=== PATIENT | male | born 1950 | race Caucasian/White ===

== ENCOUNTER 2017-06-09 19:36 | Inpatient (IN) | payer MEDICARE ==
[~2017-06-09] VITALS: Ht 175.3 cm; Wt 79.4 kg
[~2017-06-09 19:36] MED LIST: ALLO100T PO; ALPR0.254 PO; ASPI81TA3 PO; ATEN-51 PO; ATOR40TA21 PO; CARI350T29 PO; CLOP75TA19 PO; DIPH1TAB25 PO; GABA300C16 PO; HYDR-3498 PO; LEVO125T75 PO; PANT40TA4 PO; TADA20TA PO; TRAZ150T65 PO; [UNRECOGNIZED DRUG - CODE] PO; [UNRECOGNIZED DRUG - OTHER] OP
[2017-06-09 22:47] VITALS: Ht 175.3 cm; Wt 79.4 kg
[2017-06-09] MEDS ORDERED: BACLOFEN 10 MG TAB PO PRN (23:00)
[2017-06-09] MEDS ORDERED: HYDROCODONE/APAP (10/325) TAB PO PRN (23:00)
[2017-06-09] MEDS ORDERED: ACETAMINOPHEN 500 MG TAB PO PRN (23:00)
[2017-06-09] MEDS ORDERED: traZODone 50 MG TAB PO SCH (23:25)
[2017-06-09] MEDS: ATORVASTATIN 80 MG TAB PO SCH (23:43)
[2017-06-10] MEDS ORDERED: LACTULOSE 30ML CUP PO PRN (01:00)
[2017-06-10] MEDS ORDERED: MAGNESIUM HYDROXIDE 30ML CUP PO PRN (01:00)
[2017-06-10 01:29] LABS: ADD UMIC NO; UR ASCORBIC ACID NEGATIVE (NEGATIVE); UR BILIRUBIN (Dip) NEGATIVE (NEGATIVE); UR BLOOD (Dip) NEGATIVE (NEGATIVE); UR CLARITY CLEAR (CLEAR); UR COLOR YELLOW (YELLOW); UR GLUCOSE (Dip) NEGATIVE (NEGATIVE); UR KETONES (Dip) NEGATIVE (NEGATIVE); UR LEUKOCYTE ESTERASE (Dip) NEGATIVE Leu/ul (NEGATIVE); UR NITRITE (Dip) NEGATIVE (NEGATIVE); UR SPECIFIC GRAVITY (Dip) 1.012 (1.003-1.030); UR TOTAL PROTEIN (Dip) NEGATIVE (NEGATIVE); UR UROBILINOGEN (Dip) NEGATIVE (NEGATIVE)
[2017-06-10 02:00] VITALS: BP 114/69; RESP 18
[2017-06-10] MEDS: OXYCODONE/ACETAMINOPHEN (10/325) TAB PO PRN ×6 (06:19→23:32)
[2017-06-10] MEDS: PANTOPRAZOLE (EC) 40 MG TAB PO SCH (06:20)
[2017-06-10 07:45] LABS: BASOPHILS % 0.2 % (0.0-2.0); EOSINOPHILS # 0.3 10^3/ul (0.0-0.5); EOSINOPHILS % 3.5 % (0.0-7.0); HEMATOCRIT 35.4 % (42.0-52.0); HEMOGLOBIN 11.6 g/dl (14.0-18.0); LYMPHOCYTES # 1.6 10^3/ul (0.8-2.9); LYMPHOCYTES % 18.2 % (15.0-51.0); MEAN CORPUSCULAR HEMOGLOBIN 29.2 pg (29.0-33.0); MEAN CORPUSCULAR HGB CONC 32.8 g/dl (32.0-37.0); MEAN CORPUSCULAR VOLUME 89.2 fl (82.0-101.0); MEAN PLATELET VOLUME 11.4 fl (7.4-10.4); MONOCYTE # 0.9 10^3/ul (0.3-0.9); NEUTROPHIL # 5.8 10^3/ul (1.6-7.5); NEUTROPHILS % 67.6 % (39.0-77.0); PLATELET COUNT 280 10^3/UL (140-415); RED BLOOD COUNT 3.97 10^6/ul (4.70-6.10); RED CELL DISTRIBUTION WIDTH 13.5 % (11.5-14.5); WHITE BLOOD COUNT 8.5 10^3/ul (4.8-10.8)
[2017-06-10 08:01] VITALS: BP 140/65; RESP 18
[2017-06-10 08:03] LABS: ALBUMIN 3.2 g/dl (3.3-4.9); ALBUMIN/GLOBULIN RATIO 0.96; BILIRUBIN,INDIRECT 0.3 mg/dl (0-1.1); BILIRUBIN,TOTAL 0.3 mg/dl (0.2-1.3); CALCIUM 8.8 mg/dl (8.4-10.2); CREATININE 1.15 mg/dl (0.61-1.24); TOTAL PROTEIN 6.5 g/dl (6.1-8.1)
[2017-06-10] MEDS ORDERED: HYDROCORTISONE 1% 28 GM CR TOP SCH (09:00)
[2017-06-10] MEDS ORDERED: CLOTRIMAZOLE 1% 30 GM CR TOP SCH (09:00)
[2017-06-10] MEDS: POLYETHYLENE GLYCOL 17 GM PACKET PO SCH ×3 (09:00→21:59)
[2017-06-10] MEDS: PREGABALIN 25 MG CAP PO SCH ×2 (09:01→21:59)
[2017-06-10] MEDS: ACYCLOVIR 400 MG TAB PO SCH ×3 (09:02→21:59)
[2017-06-10] MEDS: FLUOXETINE 20 MG CAP PO SCH (09:02)
[2017-06-10] MEDS: DOCUSATE SODIUM 100 MG CAP PO SCH ×2 (09:02→21:58)
[2017-06-10] MEDS: VALSARTAN 80 MG TAB PO SCH (09:03)
[2017-06-10] MEDS: LEVOTHYROXINE 125 MCG TAB PO SCH (09:03)
--- NOTE | 2017-06-10 10:02 | CONS ---
Date/Time of Note Date/Time of Note DATE: 06/10/17 TIME: 09:57 Assessment/Plan Assessment/Plan Additional Assessment/Plan REHABILITATION POST-ADMISSION PHYSICIAN EVALUATION: REHABILITATION IMPAIRMENT CATEGORY: other orthopedic disorder with complicated history with multiple back surgeries and postoperative fungal infection who now more recently was noted to have a fracture at his upper instrumentation patient level requiring hardware removal and posterior fusion ACTIVE COMORBIDITIES: 1.Acute pain Syndrome 2.Hypertension 3.Anemia 4. Hypercholesterolemia 5. Hypothyroidism 6. Gout 7. history of multiple back surgeries 8.Impairments in self-care and mobility PLAN: The patient has been admitted for comprehensive interdisciplinary acute rehab and is anticipated to tolerate 3 hours of daily therapy in divided doses for at least 5/7 days a week. The treatment plan will include: 1. Physical therapy to focus on bed mobility, transfers, and household ambulation with the goal of having the patient reach a standby assist level. 2. Occupational therapy to focus on hygiene, grooming, dressing, bathing, and toileting activities with the goal of having the patient reach a standby assist level. 3. Rehabilitation nursing for carryover of therapeutic interventions, the goal of continent of bowel and bladder, pain under adequate control, and patient and family education with regards to the aforementioned issues ESTIMATED LENGTH OF STAY: 14 days. DISPOSITION GOAL: Home. Rehabilitation Barrier: pain Intervention for barrier: interdisciplinary rehabilitation I acknowledge that I performed a full physical examination on this patient within 24 hours of admission to the rehabilitation unit and believe the patient is a good candidate for comprehensive interdisciplinary rehab care and is anticipated to make reasonable goals in a reasonable period of time as outlined above. Consultation Date/Type/Reason Admit Date/Time Jun 09, 2017 at 21:09 Hx of Present Illness Patient is a very pleasant 66-year-old gentleman with a history of hypertension and complicated back history which includes multiple back surgeries who unfortunately had a fungal infection in the back which was managed with antifungal. Patient had a postoperative CAT scan which revealed a fracture at his upper instrumental level. Patient underwent a hardware removal followed by posterior fusion. His hospital course has been notable for significant pain in addition to impairments in self-care and mobility as compared to baseline. Patient has been cleared to transfer to the rehabilitation unit for comprehensive interdisciplinary rehab care Past Medical History 1.Hypertension 2.history of multiple back surgeries, postop fungal infection 3.Anemia 4. Hypercholesterolemia 5. Hypothyroidism 6. Gout FUNCTIONAL HISTORY: Prior to recent events, the patient was independent in self-care tasks and mobility. Currently, patient requires moderate assist for self-care and mobility tasks. I have reviewed the preadmission screen and the patient's current functional status is consistent with the preadmission screen. SOCIAL HISTORY: The patient lives at home and hopes to return there upon discharge. Social History Smoking Status: Never smoker Exam/Review of Systems Vital Signs Vitals Vital Signs Date Time Temp Pulse Resp B/P Pulse Ox O2 Delivery O2 Flow Rate FiO2 06/10/17 08:01 98.4 58 18 140/65 97 Intake and Output 06/09/17 06/09/17 06/10/17 14:59 22:59 06:59 Intake Total 550 ml Balance 550 ml Exam He is awake and alert and oriented 3 he can follow simple one-step commands he demonstrates antigravity strength in bilateral upper extremity and lower extremity he has impaired dynamic balance Constitutional: No alert, No distress, No frail, No non-verbal, No obese, No oriented, No other, No well developed Psych: No anxiety, No confusion, No depression, No nl mood/affect, No no complaints, No other, No suicidal Head: No atraumatic, No hematomas, No lacerations, No normocephalic, No other Eyes: No EOMI, No PERRL, No fundi, disc, No icteric, No nl conjunctiva, No nl lids, No nl sclera, No other ENMT: No intubated, No mucosa pink and moist, No nl external ears & nose, No nl lips & teeth, No nl nasal mucosa & septum, No other, No tympanic membranes Respiratory: No clear to auscultation, No congested cough, No crackles/rales, No diminished breath sounds, No intercostal retraction, No labored breathing, No normal air movement, No other, No respirations, No tactile fremitus, No wheezing Cardiovascular: No S3, No S4, No bruits, No diastolic murmur, No edema, No gallop, No irregular rhythm, No jugular venous distention (JVD), No murmurs/ extra sounds, No nl pulses, No other, No regular rate and rhythm, No rub, No systolic murmur Gastrointestinal: No ascites, No bowel sounds, No distended, No firm, No hepatomegaly, No mass, No nl liver, spleen, No non-tender, No other, No rebound or guarding, No soft, No splenomegaly, No surgical scars, No tender Genitourinary - Male: No CVA tenderness, No discharge, No nl penis, No nl scrotum, No other Results Result Diagram: 06/10/17 0640 06/10/17 0640 Results 24 hrs Laboratory Tests Test 06/09/17 23:00 06/10/17 06:40 Urine Color YELLOW Urine Clarity CLEAR Urine pH 6.0 Urine Specific [place] 1.012 Urine Ketones NEGATIVE Urine Nitrite NEGATIVE Urine Bilirubin NEGATIVE Urine Urobilinogen NEGATIVE Urine Leukocyte Esterase NEGATIVE Urine Hemoglobin NEGATIVE Urine Glucose NEGATIVE Urine Total Protein NEGATIVE White Blood Count 8.5 Red Blood Count 3.97 L Hemoglobin 11.6 L Hematocrit 35.4 L Mean Corpuscular Volume 89.2 Mean Corpuscular Hemoglobin 29.2 Mean Corpuscular Hemoglobin Concent 32.8 Red Cell Distribution Width 13.5 Platelet Count 280 Mean Platelet Volume 11.4 H Neutrophils % 67.6 Lymphocytes % 18.2 Monocytes % 10.0 Eosinophils % 3.5 Basophils % 0.2 Nucleated Red Blood Cells % 0.0 Neutrophils # 5.8 Lymphocytes # 1.6 Monocytes # 0.9 Eosinophils # 0.3 Basophils # 0.0 Nucleated Red Blood Cells # 0.0 Sodium Level 141 Potassium Level 4.0 Chloride Level 97 Carbon Dioxide Level 31 Anion Gap 17 H Blood Urea Nitrogen 14 Creatinine 1.15 Glucose Level 92 Calcium Level 8.8 Total Bilirubin 0.3 Direct Bilirubin 0.00 Indirect Bilirubin 0.3 Aspartate Amino Transf (AST/SGOT) 21 Alanine Aminotransferase (ALT/SGPT) 30 Alkaline Phosphatase 111 Total Protein 6.5 Albumin 3.2 L Globulin 3.30 H Albumin/Globulin Ratio 0.96 Medications Medications Current Medications Allopurinol (Zyloprim) 100 mg QPM PO ; Start 06/10/17 at 21:00 Atenolol (Tenormin) 25 mg QPM PO ; Start 06/10/17 at 21:00 Clopidogrel Bisulfate (plaVIX) 75 mg QPM PO ; Start 06/10/17 at 21:00 Valsartan (Diovan) 40 mg DAILY PO Last administered on 06/10/17 09:03; Admin Dose 40 MG; Start 06/10/17 at 09:00 Pregabalin (Lyrica) 100 mg BID PO Last administered on 06/10/17 09:01; Admin Dose 100 MG; Start 06/10/17 at 09:00 Acetaminophen (Tylenol Tab) 1,000 mg TID PRN PO PAIN; Start 06/09/17 at 23:00 Baclofen (Lioresal) 10 mg TID PRN PO SPASMS; Start 06/09/17 at 23:00 Atorvastatin Calcium (Lipitor) 80 mg DAILY@21 PO Last administered on 23:43; Admin Dose 80 MG; Start 06/09/17 at 23:25 Fluoxetine HCl (Prozac) 60 mg DAILY PO Last administered on 06/10/17 09:02; Admin Dose 60 MG; Start 06/10/17 at 09:00 Docusate Sodium (Colace) 100 mg BID PO Last administered on 06/10/17 09:02; Admin Dose 100 MG; Start 06/10/17 at 09:00 Senna (Senokot) 1 tab HS PO ; Start 06/10/17 at 21:00 Magnesium Hydroxide (Milk Of Mag) 30 ml BID PRN PO CONSTIPATION; Start at 01:00 Lactulose (Enulose) 20 gm DAILY PRN PO CONSTIPATION; Start 06/10/17 at 01:00 Polyethylene Glycol (Miralax) 17 gm BID PO ; Start 06/10/17 at 09:00 Tamsulosin HCl (Flomax) 0.4 mg DAILY@21 PO ; Start 06/10/17 at 21:00 Acyclovir (Zovirax) 400 mg TID PO Last administered on 06/10/17 09:02; Admin Dose 400 MG; Start 06/10/17 at 09:00 Trazodone HCl (Desyrel) 25 mg HS PO ; Start 06/10/17 at 21:00 Pantoprazole (Protonix Tab) 40 mg DAILY@06 PO Last administered on 06/10/17 06 :20; Admin Dose 40 MG; Start 06/10/17 at 06:00 Oxycodone/ Acetaminophen (Endocet (10/ 325)) 1 tab Q4H PRN PO PAIN Last administered on 06/10/17 06:19; Admin Dose 1 TAB; Start 06/10/17 at 06:00 ARIAS SYED MD Jun 10, 2017 10:02
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
[2017-06-10] MEDS: BACLOFEN 10 MG TAB PO SCH ×2 (12:38→21:58)
[2017-06-10 20:00] VITALS: BP 110/55; RESP 18
[2017-06-10] MEDS ORDERED: traZODone 50 MG TAB PO SCH (21:00)
[2017-06-10] MEDS ORDERED: ALFUZOSIN (SR) 10 MG TAB PO SCH (21:00)
[2017-06-10] MEDS ORDERED: ATORVASTATIN 80 MG TAB PO SCH (21:00)
[2017-06-10] MEDS: TAMSULOSIN (SR) 0.4 MG CAP PO SCH (21:58)
[2017-06-10] MEDS: traZODone 50 MG TAB PO SCH (21:58)
[2017-06-10] MEDS: SENNA TAB PO SCH (21:58)
[2017-06-10] MEDS: ATORVASTATIN 80 MG TAB PO SCH (21:58)
[2017-06-10] MEDS: ALLOPURINOL 100 MG TAB PO SCH (21:59)
[2017-06-10] MEDS: CLOPIDOGREL 75 MG TAB PO SCH (21:59)
[2017-06-10] MEDS: ATENOLOL 25 MG TAB PO SCH (21:59)
[2017-06-11 02:00] VITALS: BP 117/62; RESP 18
[2017-06-11] MEDS: OXYCODONE/ACETAMINOPHEN (10/325) TAB PO PRN ×3 (06:21→19:12)
[2017-06-11] MEDS: PANTOPRAZOLE (EC) 40 MG TAB PO SCH (06:21)
[2017-06-11 07:30] VITALS: BP 97/48; RESP 18
[2017-06-11] MEDS: VALSARTAN 80 MG TAB PO SCH (09:00)
[2017-06-11] MEDS: POLYETHYLENE GLYCOL 17 GM PACKET PO SCH ×2 (09:00→21:05)
[2017-06-11] MEDS: ACYCLOVIR 400 MG TAB PO SCH ×3 (09:04→21:04)
[2017-06-11] MEDS: PREGABALIN 25 MG CAP PO SCH ×2 (09:04→21:05)
[2017-06-11] MEDS: LEVOTHYROXINE 125 MCG TAB PO SCH (09:04)
[2017-06-11] MEDS: DOCUSATE SODIUM 100 MG CAP PO SCH ×2 (09:05→21:05)
[2017-06-11] MEDS: FLUOXETINE 20 MG CAP PO SCH (09:05)
[2017-06-11] MEDS: BACLOFEN 10 MG TAB PO SCH ×3 (09:05→21:04)
--- NOTE | 2017-06-11 10:14 | PN ---
DATE: 06/11/2017 SUBJECTIVE DATA: Patient is stable. No events overnight. No fevers, chills, nausea, or vomiting. No shortness of breath. OBJECTIVE DATA: VITAL SIGNS: Blood pressure 97/48, respirations 18, pulse 65, temperature 98.5. HEENT: Head is normocephalic. NECK: Supple. HEART: Regular rate. LUNGS: Diminished breath sounds at the base. ABDOMEN: Revealed nontender to palpation. No rebound or guarding. EXTREMITIES: Negative for clubbing, cyanosis, no edema. DERMATOLOGIC: No rashes. MUSCULOSKELETAL: No joint effusion. NEUROLOGIC: No change in exam. MEDICATIONS: Reviewed. LABORATORY AND DIAGNOSTIC DATA: Reviewed. ASSESSMENT AND PLAN: 1. Status post- T11 and T10 spinal fusion. The patient is currently stable. Pain is present. Continue current pain regimen. Continue physical therapy. 2. Chronic pain syndrome. Continue current pain regimen. 3. History of chronic disease. Continue medical management. Continue Diovan, Plavix, Lipitor, and atenolol. 4. Hypertension. Continue current blood pressure regimen. 5. Neuropathy. Continue Lyrica. 6. Hypothyroidism. Synthroid. 7. Benign prostatic hypertrophy. Continue Flomax. 8. Anxiety/depression. Continue Prozac. 9. Kidney stones. 10. Mild anemia. Continue to monitor hemoglobin and hematocrit levels. 11. Gastrointestinal and deep venous thrombosis prophylaxis. Continue proton pump inhibitor, Plavix, and sequential compressive devices. 12. Status post wound infection. Dictated By: Ricardo Gamez DO /[email or web address] /Document#: [id number]
--- NOTE | 2017-06-11 10:31 | PN ---
Date/Time of Note Date/Time of Note DATE: 06/11/17 TIME: 10:26 Assessment/Plan VTE Prophylaxis VTE Prophylaxis Intervention: other Assessment/Plan Assessment/Plan 1. Chronic low back pain with history with multiple back surgeries, most recently complicated by fungal infection necessitating antifungal therapy, and found with fracture at upper instrumented level, now status post hardware removal and posterior fusion, with impaired mobility/gait/ADLs. Continue PT/OT. Min assist for bed mobility and transfers. 2. Acute postoperative pain syndrome with baseline chronic pain syndrome. Controlled. Continue pain regimen. 3..Hypertension. Continue to monitor BP. Continue medical management per internal medicine. 4.Anemia. Monitor hemoglobin/hematocrit. 5. Hypercholesterolemia. Continue statin. 6. Hypothyroidism. Continue levothyroxine. 7. Gout. Continue medical management. Monitor for flare ups. 8. BPH. On flomax. Continue bladder program. Subjective 24 Hr Interval Summary Free Text/Dictation Rehab progress note Subjective: Reports moderate pain in his back currently, reports relief with pain medication. ROS: Denies chest pain, no shortness of breath, no abdominal pain, no nausea or vomiting. Reports bowel movement yesterday. Exam/Review of Systems Vital Signs Vitals Vital Signs Date Time Temp Pulse Resp B/P Pulse Ox O2 Delivery O2 Flow Rate FiO2 06/11/17 07:30 98.5 55 18 97/48 93 Intake and Output 06/10/17 06/10/17 06/11/17 15:00 23:00 07:00 Intake Total 800 ml 400 ml 700 ml Output Total 200 ml Balance 800 ml 200 ml 700 ml Exam General: Awake, alert, no acute distress CV: Regular rate, s1s2 Lungs: Clear to auscultation anteriorly, no wheezing Abdomen soft, nontender Extremities without cyanosis, no distal edema Neuro: Antigravity strength BUE/BLE. Follows simple commands. Results Result Diagram: 06/10/1763906/10/1740 Medications Medications Current Medications Allopurinol (Zyloprim) 100 mg QPM PO Last administered on 06/10/17 21:59; Admin Dose 100 MG; Start 06/10/17 at 21:00 Atenolol (Tenormin) 25 mg QPM PO Last administered on 06/10/17 21:59; Admin Dose 25 MG; Start 06/10/17 at 21:00 Clopidogrel Bisulfate (plaVIX) 75 mg QPM PO Last administered on 06/10/17 21: 59; Admin Dose 75 MG; Start 06/10/17 at 21:00 Valsartan (Diovan) 40 mg DAILY PO Last administered on 06/10/17 09:03; Admin Dose 40 MG; Start 06/10/17 at 09:00 Pregabalin (Lyrica) 100 mg BID PO Last administered on 06/11/17 09:04; Admin Dose 100 MG; Start 06/10/17 at 09:00 Acetaminophen (Tylenol Tab) 1,000 mg TID PRN PO PAIN; Start 06/09/17 at 23:00 Atorvastatin Calcium (Lipitor) 80 mg DAILY@21 PO Last administered on 21:58; Admin Dose 80 MG; Start 06/09/17 at 23:25 Fluoxetine HCl (Prozac) 60 mg DAILY PO Last administered on 06/11/17 09:05; Admin Dose 60 MG; Start 06/10/17 at 09:00 Docusate Sodium (Colace) 100 mg BID PO Last administered on 06/11/17 09:05; Admin Dose 100 MG; Start 06/10/17 at 09:00 Senna (Senokot) 1 tab HS PO Last administered on 06/10/17 21:58; Admin Dose 1 TAB; Start 06/10/17 at 21:00 Magnesium Hydroxide (Milk Of Mag) 30 ml BID PRN PO CONSTIPATION; Start at 01:00 Lactulose (Enulose) 20 gm DAILY PRN PO CONSTIPATION; Start 06/10/17 at 01:00 Polyethylene Glycol (Miralax) 17 gm BID PO Last administered on 06/10/17 21:59 ; Admin Dose 17 GM; Start 06/10/17 at 09:00 Tamsulosin HCl (Flomax) 0.4 mg DAILY@21 PO Last administered on 06/10/17 21:58 ; Admin Dose 0.4 MG; Start 06/10/17 at 21:00 Acyclovir (Zovirax) 400 mg TID PO Last administered on 06/11/17 09:04; Admin Dose 400 MG; Start 06/10/17 at 09:00 Trazodone HCl (Desyrel) 25 mg HS PO Last administered on 06/10/17 21:58; Admin Dose 25 MG; Start 06/10/17 at 21:00 Pantoprazole (Protonix Tab) 40 mg DAILY@06 PO Last administered on 06/11/17 06 :21; Admin Dose 40 MG; Start 06/10/17 at 06:00 Oxycodone/ Acetaminophen (Endocet (10/ 325)) 1 tab Q4H PRN PO PAIN Last administered on 06/11/17 06:21; Admin Dose 1 TAB; Start 06/10/17 at 06:00 Baclofen (Lioresal) 10 mg TID PO Last administered on 06/11/17 09:05; Admin Dose 10 MG; Start 06/10/17 at 13:00 OTTO LARA Jun 11, 2017 10:31
[2017-06-11 14:00] VITALS: BP 103/53; RESP 18
[2017-06-11 19:35] VITALS: BP 122/58; RESP 19
[2017-06-11] MEDS: ALLOPURINOL 100 MG TAB PO SCH (21:04)
[2017-06-11] MEDS: TAMSULOSIN (SR) 0.4 MG CAP PO SCH (21:04)
[2017-06-11] MEDS: traZODone 50 MG TAB PO SCH (21:05)
[2017-06-11] MEDS: ATENOLOL 25 MG TAB PO SCH (21:05)
[2017-06-11] MEDS: SENNA TAB PO SCH (21:05)
[2017-06-11] MEDS: ATORVASTATIN 80 MG TAB PO SCH (21:05)
[2017-06-11] MEDS: CLOPIDOGREL 75 MG TAB PO SCH (21:05)
[2017-06-12 02:00] VITALS: BP 147/65; RESP 18
[2017-06-12] MEDS: OXYCODONE/ACETAMINOPHEN (10/325) TAB PO PRN ×4 (03:11→20:26)
[2017-06-12] MEDS: PANTOPRAZOLE (EC) 40 MG TAB PO SCH (06:31)
[2017-06-12 08:15] VITALS: BP 128/59; PULSE 54; RESP 20
[2017-06-12] MEDS: POLYETHYLENE GLYCOL 17 GM PACKET PO SCH ×2 (08:59→21:00)
[2017-06-12] MEDS: DOCUSATE SODIUM 100 MG CAP PO SCH ×3 (08:59→20:18)
[2017-06-12] MEDS: LEVOTHYROXINE 125 MCG TAB PO SCH (08:59)
[2017-06-12] MEDS: BACLOFEN 10 MG TAB PO SCH ×3 (09:00→20:18)
[2017-06-12] MEDS: VALSARTAN 80 MG TAB PO SCH (09:00)
[2017-06-12] MEDS: PREGABALIN 25 MG CAP PO SCH ×2 (09:01→20:19)
[2017-06-12] MEDS: FLUOXETINE 20 MG CAP PO SCH (09:01)
[2017-06-12] MEDS: ACYCLOVIR 400 MG TAB PO SCH ×3 (09:05→20:20)
--- NOTE | 2017-06-12 09:17 | PN ---
Date/Time of Note Date/Time of Note DATE: 06/12/17 TIME: 09:15 Assessment/Plan VTE Prophylaxis VTE Prophylaxis Intervention: other Assessment/Plan Assessment/Plan 1. Chronic low back pain with history with multiple back surgeries, most recently complicated by fungal infection necessitating antifungal therapy, and found with fracture at upper instrumented level, now status post hardware removal and posterior fusion, with impaired mobility/gait/ADLs. Continue PT/OT. Mod assist for upper body dressing, min assist for toileting. 2. Acute postoperative pain syndrome with baseline chronic pain syndrome. Pain controlled with current regimen. Continue to monitor as mobilizes further with therapies. 3. Hypertension. BP overall controlled. Continue medical management. 4.Anemia. Monitor hemoglobin/hematocrit. 5. Hypercholesterolemia. Continue statin. 6. Hypothyroidism. Continue levothyroxine. 7. Gout. Continue medical management. 8. BPH. Continue bladder program, on flomax. Subjective 24 Hr Interval Summary Free Text/Dictation Rehab progress note Subjective: No new complaints. Reports moderate pain in his back currently, just received pain medication. ROS: Denies chest pain, no shortness of breath, no abdominal pain, no nausea or vomiting, no chills. Exam/Review of Systems Vital Signs Vitals Vital Signs Date Time Temp Pulse Resp B/P Pulse Ox O2 Delivery O2 Flow Rate FiO2 06/12/17 08:15 98.5 54 20 128/59 96 Room Air Intake and Output 06/11/17 06/11/17 06/12/17 15:00 23:00 07:00 Intake Total 810 ml 100 ml Output Total 1 ml Balance 809 ml 100 ml Exam General: Awake, alert, no acute distress CV: Regular rate, s1s2 audible Lungs: No crackles, no wheezing, no accessory muscle use Abdomen soft, nontender Extremities without cyanosis, no new swelling Neuro: No focal changes. Follows simple commands. Results Result Diagram: 06/10/1740 06/10/1740 Medications Medications Current Medications Allopurinol (Zyloprim) 100 mg QPM PO Last administered on 06/11/17 21:04; Admin Dose 100 MG; Start 06/10/17 at 21:00 Atenolol (Tenormin) 25 mg QPM PO Last administered on 06/11/17 21:05; Admin Dose 25 MG; Start 06/10/17 at 21:00 Clopidogrel Bisulfate (plaVIX) 75 mg QPM PO Last administered on 06/11/17 21: 05; Admin Dose 75 MG; Start 06/10/17 at 21:00 Valsartan (Diovan) 40 mg DAILY PO Last administered on 06/12/17 09:00; Admin Dose 40 MG; Start 06/10/17 at 09:00 Pregabalin (Lyrica) 100 mg BID PO Last administered on 06/12/17 09:01; Admin Dose 100 MG; Start 06/10/17 at 09:00 Acetaminophen (Tylenol Tab) 1,000 mg TID PRN PO PAIN; Start 06/09/17 at 23:00 Atorvastatin Calcium (Lipitor) 80 mg DAILY@21 PO Last administered on 21:05; Admin Dose 80 MG; Start 06/09/17 at 23:25 Fluoxetine HCl (Prozac) 60 mg DAILY PO Last administered on 06/12/17 09:01; Admin Dose 60 MG; Start 06/10/17 at 09:00 Docusate Sodium (Colace) 100 mg BID PO Last administered on 06/11/17 21:05; Admin Dose 100 MG; Start 06/10/17 at 09:00 Senna (Senokot) 1 tab HS PO Last administered on 06/11/17 21:05; Admin Dose 1 TAB; Start 06/10/17 at 21:00 Magnesium Hydroxide (Milk Of Mag) 30 ml BID PRN PO CONSTIPATION; Start at 01:00 Lactulose (Enulose) 20 gm DAILY PRN PO CONSTIPATION; Start 06/10/17 at 01:00 Polyethylene Glycol (Miralax) 17 gm BID PO Last administered on 06/11/17 21:05 ; Admin Dose 17 GM; Start 06/10/17 at 09:00 Tamsulosin HCl (Flomax) 0.4 mg DAILY@21 PO Last administered on 06/11/17 21:04 ; Admin Dose 0.4 MG; Start 06/10/17 at 21:00 Acyclovir (Zovirax) 400 mg TID PO Last administered on 06/12/17 09:05; Admin Dose 400 MG; Start 06/10/17 at 09:00 Trazodone HCl (Desyrel) 25 mg HS PO Last administered on 06/11/17 21:05; Admin Dose 25 MG; Start 06/10/17 at 21:00 Pantoprazole (Protonix Tab) 40 mg DAILY@06 PO Last administered on 06/12/17 06 :31; Admin Dose 40 MG; Start 06/10/17 at 06:00 Oxycodone/ Acetaminophen (Endocet (10/ 325)) 1 tab Q4H PRN PO PAIN Last administered on 06/12/17 08:58; Admin Dose 1 TAB; Start 06/10/17 at 06:00 Baclofen (Lioresal) 10 mg TID PO Last administered on 06/12/17 09:00; Admin Dose 10 MG; Start 06/10/17 at 13:00 OTTO LARA Jun 12, 2017 09:17
--- NOTE | 2017-06-12 09:57 | PN ---
DATE: 06/12/2017 SUBJECTIVE DATA: The patient is stable. He is complaining about pain in his back, but working well with physical therapy. The patient's pain medications are controlling his underlying pain. No other events noted. OBJECTIVE DATA: VITAL SIGNS: Blood pressure is 120/59, respirations 20, pulse 54, temperature 98.5. HEENT: Head is normocephalic. NECK: Supple. HEART: Regular rate. LUNGS: Diminished breath sounds base. ABDOMEN: Soft, nontender to palpation. No guarding. EXTREMITIES: Negative for clubbing, cyanosis, no edema. DERMATOLOGIC: No rashes. MUSCULOSKELETAL: The patient's dressing over his mid back is clean, dry and intact. LABORATORY AND DIAGNOSTIC DATA: Laboratory data gram-negative rods, less than 10,000. Other laboratory data has been reviewed. ASSESSMENT AND PLAN: 1. Status post T11-T10 spinal fusion. The patient is currently stable. Continue physical therapy. Continue pain control. 2. Chronic pain syndrome. Continue current pain regimen. 3. Coronary artery disease. Continue current medical management. 4. Hypertension. Continue current blood pressure regimen. 5. Neuropathy. Continue Lyrica. 6. Hypothyroidism. Continue Synthroid. 7. Benign prostatic hypertrophy. Continue Flomax. 8. Anxiety and depression. Continue Prozac. 9. History of kidney stones. 10. Anemia. Continue to monitor hemoglobin and hematocrit levels. 11. Gastrointestinal and deep venous thrombosis prophylaxis. Continue proton pump inhibitors and sequential leg squeezers. 12. Status post wound infection. Dictated By: Ricardo Gamez DO /[email or web address]/jose /Document#: [id number]
[2017-06-12 20:00] VITALS: BP 112/52; RESP 18
[2017-06-12] MEDS: SENNA TAB PO SCH (20:19)
[2017-06-12] MEDS: ALLOPURINOL 100 MG TAB PO SCH (20:19)
[2017-06-12] MEDS: CLOPIDOGREL 75 MG TAB PO SCH (20:19)
[2017-06-12] MEDS: traZODone 50 MG TAB PO SCH (20:20)
[2017-06-12] MEDS: TAMSULOSIN (SR) 0.4 MG CAP PO SCH (20:20)
[2017-06-12] MEDS: ATORVASTATIN 80 MG TAB PO SCH (20:21)
[2017-06-12] MEDS: ATENOLOL 25 MG TAB PO SCH (20:33)
[2017-06-13 02:00] VITALS: BP 119/59; RESP 18
[2017-06-13] MEDS: OXYCODONE/ACETAMINOPHEN (10/325) TAB PO PRN ×4 (05:28→21:41)
[2017-06-13] MEDS: PANTOPRAZOLE (EC) 40 MG TAB PO SCH (05:28)
[2017-06-13 07:30] VITALS: BP 140/73; RESP 20
[2017-06-13] MEDS: LEVOTHYROXINE 125 MCG TAB PO SCH (07:53)
[2017-06-13] MEDS: POLYETHYLENE GLYCOL 17 GM PACKET PO SCH (09:00)
[2017-06-13] MEDS: ACYCLOVIR 400 MG TAB PO SCH ×3 (09:06→20:28)
[2017-06-13] MEDS: DOCUSATE SODIUM 100 MG CAP PO SCH ×2 (09:07→20:40)
[2017-06-13] MEDS: VALSARTAN 80 MG TAB PO SCH (09:07)
[2017-06-13] MEDS: FLUOXETINE 20 MG CAP PO SCH (09:07)
[2017-06-13] MEDS: BACLOFEN 10 MG TAB PO SCH ×3 (09:08→20:28)
[2017-06-13] MEDS: PREGABALIN 25 MG CAP PO SCH ×2 (09:08→20:27)
--- NOTE | 2017-06-13 11:00 | PN ---
DATE: 06/13/2017 SUBJECTIVE DATA: The patient is stable. No events overnight. No fevers, chills, nausea, or vomiting. OBJECTIVE DATA: VITAL SIGNS: Blood pressure 122/60, respirations 18, pulse 72, temperature 98.2. HEENT: Head is normocephalic. NECK: Supple. HEART: Regular rate. LUNGS: Diminished breath sounds at the base. ABDOMEN: Soft, nontender to palpation. No rebound or guarding. EXTREMITIES: Negative for clubbing or cyanosis. No edema. DERMATOLOGIC: No rashes. MUSCULOSKELETAL: No joint effusion. NEUROLOGIC: No change in exam. MEDICATION: The patient's medications have been reviewed. LABORATORY AND DIAGNOSTIC DATA: Reviewed. No new labs. ASSESSMENT AND PLAN: 1. Status post-T11, T10 spinal fusion. The patient is currently stable. Continue physical therapy and pain control. 2. Chronic pain syndrome. Continue current pain regimen. 3. Coronary artery disease. Continue current medical management. 4. Hypertension. Continue current blood pressure regimen. 5. Neuropathy. Continue Lyrica. 6. Hypothyroidism. Continue Synthroid. 7. History of benign prostatic hypertrophy. Continue Flomax. 8. Anxiety/Depression. Continue Prozac. 9. History of kidney stones. 10. Anemia. Monitor hemoglobin and hematocrit levels. 11. Gastrointestinal and deep venous thrombosis prophylaxis. Continue PPI and sequential leg squeezes. 12. Status post-wound infection. Dictated By: Ricardo Gamez DO /[email or web address] /Document#: [id number]
--- NOTE | 2017-06-13 13:27 | CONS ---
Date/Time of Note Date/Time of Note DATE: 06/13/17 TIME: 13:27 Consult Date/Type/Reason Admit Date/Time Jun 09, 2017 at 21:09 Initial Consult Date Objective Vital Signs Date Time Temp Pulse Resp B/P Pulse Ox O2 Delivery O2 Flow Rate FiO2 06/13/17 07:30 98.5 55 20 140/73 96 06/12/17 08:15 Room Air Intake and Output 06/12/17 06/12/17 06/13/17 15:00 23:00 07:00 Intake Total 350 ml 300 ml Balance 350 ml 300 ml INTERDISCIPLINARY TEAM CONFERENCE BOWEL- Cont BLADDER-Cont SKIN- intact OT- DRESSING-sba BATHING-sba TOILETING-sba PT- BED MOBILITY-sba TRANSFERS-sba AMBULATION-sba 150 feet A/P- Interdisciplinary team conference held today. Please see interdisciplinary sheet. Working toward d.c. on 06/17 with post discharge follow up of physical therapy, occupational therapy. Results/Medications Result Diagram: 06/10/17 0640 06/10/17 0640 Medications Current Medications Allopurinol (Zyloprim) 100 mg QPM PO Last administered on 06/12/17 20:19; Admin Dose 100 MG; Start 06/10/17 at 21:00 Atenolol (Tenormin) 25 mg QPM PO Last administered on 06/12/17 20:33; Admin Dose 25 MG; Start 06/10/17 at 21:00 Clopidogrel Bisulfate (plaVIX) 75 mg QPM PO Last administered on 06/12/17 20: 19; Admin Dose 75 MG; Start 06/10/17 at 21:00 Valsartan (Diovan) 40 mg DAILY PO Last administered on 06/13/17 09:07; Admin Dose 40 MG; Start 06/10/17 at 09:00 Pregabalin (Lyrica) 100 mg BID PO Last administered on 06/13/17 09:08; Admin Dose 100 MG; Start 06/10/17 at 09:00 Acetaminophen (Tylenol Tab) 1,000 mg TID PRN PO PAIN; Start 06/09/17 at 23:00 Atorvastatin Calcium (Lipitor) 80 mg DAILY@21 PO Last administered on 20:21; Admin Dose 80 MG; Start 06/09/17 at 23:25 Fluoxetine HCl (Prozac) 60 mg DAILY PO Last administered on 06/13/17 09:07; Admin Dose 60 MG; Start 06/10/17 at 09:00 Docusate Sodium (Colace) 100 mg BID PO Last administered on 06/13/17 09:07; Admin Dose 100 MG; Start 06/10/17 at 09:00 Senna (Senokot) 1 tab HS PO Last administered on 06/12/17 20:19; Admin Dose 1 TAB; Start 06/10/17 at 21:00 Magnesium Hydroxide (Milk Of Mag) 30 ml BID PRN PO CONSTIPATION; Start at 01:00 Lactulose (Enulose) 20 gm DAILY PRN PO CONSTIPATION; Start 06/10/17 at 01:00 Tamsulosin HCl (Flomax) 0.4 mg DAILY@21 PO Last administered on 06/12/17 20:20 ; Admin Dose 0.4 MG; Start 06/10/17 at 21:00 Acyclovir (Zovirax) 400 mg TID PO Last administered on 06/13/17 12:52; Admin Dose 400 MG; Start 06/10/17 at 09:00 Trazodone HCl (Desyrel) 25 mg HS PO Last administered on 06/12/17 20:20; Admin Dose 25 MG; Start 06/10/17 at 21:00 Pantoprazole (Protonix Tab) 40 mg DAILY@06 PO Last administered on 06/13/17 05 :28; Admin Dose 40 MG; Start 06/10/17 at 06:00 Oxycodone/ Acetaminophen (Endocet (10/ 325)) 1 tab Q4H PRN PO PAIN Last administered on 06/13/17 10:41; Admin Dose 1 TAB; Start 06/10/17 at 06:00 Baclofen (Lioresal) 10 mg TID PO Last administered on 06/13/17 12:52; Admin Dose 10 MG; Start 06/10/17 at 13:00 Polyethylene Glycol (Miralax) 17 gm BID PRN PO CONSTIPATION; Start 06/13/17 at 13:30 ARIAS SYED MD Jun 13, 2017 13:27 ARIAS SYED MD Jun 13, 2017 13:27
[2017-06-13] MEDS ORDERED: POLYETHYLENE GLYCOL 17 GM PACKET PO PRN (13:30)
[2017-06-13 14:00] VITALS: BP 99/54; RESP 18
[2017-06-13 20:00] VITALS: BP 110/67; RESP 18
[2017-06-13] MEDS: CLOPIDOGREL 75 MG TAB PO SCH (20:27)
[2017-06-13] MEDS: ATENOLOL 25 MG TAB PO SCH (20:27)
[2017-06-13] MEDS: TAMSULOSIN (SR) 0.4 MG CAP PO SCH (20:27)
[2017-06-13] MEDS: ATORVASTATIN 80 MG TAB PO SCH (20:28)
[2017-06-13] MEDS: traZODone 50 MG TAB PO SCH (20:28)
[2017-06-13] MEDS: ALLOPURINOL 100 MG TAB PO SCH (20:28)
[2017-06-13] MEDS: SENNA TAB PO SCH (20:40)
[2017-06-14 02:00] VITALS: BP 101/52; RESP 18
[2017-06-14] MEDS: OXYCODONE/ACETAMINOPHEN (10/325) TAB PO PRN ×3 (02:36→13:06)
[2017-06-14] MEDS: PANTOPRAZOLE (EC) 40 MG TAB PO SCH (06:22)
[2017-06-14 07:50] VITALS: BP 117/56; RESP 18
[2017-06-14] MEDS: LEVOTHYROXINE 125 MCG TAB PO SCH (08:39)
[2017-06-14] MEDS: FLUOXETINE 20 MG CAP PO SCH (08:39)
[2017-06-14] MEDS: PREGABALIN 25 MG CAP PO SCH ×2 (08:40→20:28)
[2017-06-14] MEDS: ACYCLOVIR 400 MG TAB PO SCH ×3 (08:40→20:28)
[2017-06-14] MEDS: DOCUSATE SODIUM 100 MG CAP PO SCH ×2 (08:40→20:28)
[2017-06-14] MEDS: BACLOFEN 10 MG TAB PO SCH ×3 (08:40→20:30)
[2017-06-14] MEDS: VALSARTAN 80 MG TAB PO SCH (09:24)
--- NOTE | 2017-06-14 12:39 | CONS ---
Date/Time of Note Date/Time of Note DATE: 06/14/17 TIME: 12:39 Consult Date/Type/Reason Admit Date/Time Jun 09, 2017 at 21:09 Subjective Feeling well Objective supervised ambulation Vital Signs Date Time Temp Pulse Resp B/P Pulse Ox O2 Delivery O2 Flow Rate FiO2 06/14/17 07:50 97.9 51 18 117/56 98 06/12/17 08:15 Room Air Intake and Output 06/13/17 06/13/17 06/14/17 15:00 23:00 07:00 Intake Total 460 ml Balance 460 ml Results/Medications Result Diagram: 06/10/17 0640 06/10/17 0640 Medications Current Medications Allopurinol (Zyloprim) 100 mg QPM PO Last administered on 06/13/17 20:28; Admin Dose 100 MG; Start 06/10/17 at 21:00 Atenolol (Tenormin) 25 mg QPM PO Last administered on 06/13/17 20:27; Admin Dose 25 MG; Start 06/10/17 at 21:00 Clopidogrel Bisulfate (plaVIX) 75 mg QPM PO Last administered on 06/13/17 20: 27; Admin Dose 75 MG; Start 06/10/17 at 21:00 Valsartan (Diovan) 40 mg DAILY PO Last administered on 06/14/17 09:24; Admin Dose 40 MG; Start 06/10/17 at 09:00 Pregabalin (Lyrica) 100 mg BID PO Last administered on 06/14/17 08:40; Admin Dose 100 MG; Start 06/10/17 at 09:00 Acetaminophen (Tylenol Tab) 1,000 mg TID PRN PO PAIN; Start 06/09/17 at 23:00 Atorvastatin Calcium (Lipitor) 80 mg DAILY@21 PO Last administered on 20:28; Admin Dose 80 MG; Start 06/09/17 at 23:25 Fluoxetine HCl (Prozac) 60 mg DAILY PO Last administered on 06/14/17 08:39; Admin Dose 60 MG; Start 06/10/17 at 09:00 Docusate Sodium (Colace) 100 mg BID PO Last administered on 06/14/17 08:40; Admin Dose 100 MG; Start 06/10/17 at 09:00 Senna (Senokot) 1 tab HS PO Last administered on 06/12/17 20:19; Admin Dose 1 TAB; Start 06/10/17 at 21:00 Magnesium Hydroxide (Milk Of Mag) 30 ml BID PRN PO CONSTIPATION; Start at 01:00 Lactulose (Enulose) 20 gm DAILY PRN PO CONSTIPATION; Start 06/10/17 at 01:00 Tamsulosin HCl (Flomax) 0.4 mg DAILY@21 PO Last administered on 06/13/17 20:27 ; Admin Dose 0.4 MG; Start 06/10/17 at 21:00 Acyclovir (Zovirax) 400 mg TID PO Last administered on 06/14/17 08:40; Admin Dose 400 MG; Start 06/10/17 at 09:00 Trazodone HCl (Desyrel) 25 mg HS PO Last administered on 06/13/17 20:28; Admin Dose 25 MG; Start 06/10/17 at 21:00 Pantoprazole (Protonix Tab) 40 mg DAILY@06 PO Last administered on 06/14/17 06 :22; Admin Dose 40 MG; Start 06/10/17 at 06:00 Oxycodone/ Acetaminophen (Endocet (10/ 325)) 1 tab Q4H PRN PO PAIN Last administered on 06/14/17 08:26; Admin Dose 1 TAB; Start 06/10/17 at 06:00 Baclofen (Lioresal) 10 mg TID PO Last administered on 06/14/17 08:40; Admin Dose 10 MG; Start 06/10/17 at 13:00 Polyethylene Glycol (Miralax) 17 gm BID PRN PO CONSTIPATION; Start 06/13/17 at 13:30 Assessment/Plan Additional Assessment/Plan Rehab- Complicated hx multiple back surgeries- postop fungal infection, now with fracture at upper instrumentation level requiring hardware removal and posterior fusion Steady progress, continue treatment plan Acute pain Syndrome-improved Hypertension Anemia Hypercholesterolemia Hypothyroidism ARIAS Rowan MD Jun 14, 2017 12:39
--- NOTE | 2017-06-14 15:57 | PN ---
Date/Time of Note Date/Time of Note DATE: 06/14/17 TIME: 15:55 Assessment/Plan VTE Prophylaxis VTE Prophylaxis Intervention: other Assessment/Plan Chief Complaint/Hosp Course ASSESSMENT AND PLAN: 1. Status post-T11, T10 spinal fusion. The patient is currently stable. Continue physical therapy and pain control. 2. Chronic pain syndrome. Continue current pain regimen. 3. Coronary artery disease. Continue current medical management. 4. Hypertension. Continue current blood pressure regimen. 5. Neuropathy. Continue Lyrica. 6. Hypothyroidism. Continue Synthroid. 7. History of benign prostatic hypertrophy. Continue Flomax. 8. Anxiety/Depression. Continue Prozac. 9. History of kidney stones. 10. Anemia. Monitor hemoglobin and hematocrit levels. 11. Gastrointestinal and deep venous thrombosis prophylaxis. Continue PPI and sequential leg squeezes. 12. Status post-wound infection. Problems: Subjective 24 Hr Interval Summary Free Text/Dictation medicine follow up SUBJECTIVE DATA: The patient is stable. No events overnight. No fevers, chills, nausea, or vomiting. OBJECTIVE DATA: HEENT: Head is normocephalic. NECK: Supple. HEART: Regular rate. LUNGS: Diminished breath sounds at the base. ABDOMEN: Soft, nontender to palpation. No rebound or guarding. EXTREMITIES: Negative for clubbing or cyanosis. No edema. DERMATOLOGIC: No rashes. MUSCULOSKELETAL: No joint effusion. NEUROLOGIC: No change in exam. MEDICATION: The patient's medications have been reviewed. Exam/Review of Systems Vital Signs Vitals Vital Signs Date Time Temp Pulse Resp B/P Pulse Ox O2 Delivery O2 Flow Rate FiO2 06/14/17 07:50 97.9 51 18 117/56 98 06/12/17 08:15 Room Air Intake and Output 06/13/17 06/13/17 06/14/17 15:00 23:00 07:00 Intake Total 460 ml Balance 460 ml Results Result Diagram: 06/10/17 0640 06/10/17 0640 Medications Medications Current Medications Allopurinol (Zyloprim) 100 mg QPM PO Last administered on 06/13/17 20:28; Admin Dose 100 MG; Start 06/10/17 at 21:00 Atenolol (Tenormin) 25 mg QPM PO Last administered on 06/13/17 20:27; Admin Dose 25 MG; Start 06/10/17 at 21:00 Clopidogrel Bisulfate (plaVIX) 75 mg QPM PO Last administered on 06/13/17 20: 27; Admin Dose 75 MG; Start 06/10/17 at 21:00 Valsartan (Diovan) 40 mg DAILY PO Last administered on 06/14/17 09:24; Admin Dose 40 MG; Start 06/10/17 at 09:00 Pregabalin (Lyrica) 100 mg BID PO Last administered on 06/14/17 08:40; Admin Dose 100 MG; Start 06/10/17 at 09:00 Acetaminophen (Tylenol Tab) 1,000 mg TID PRN PO PAIN; Start 06/09/17 at 23:00 Atorvastatin Calcium (Lipitor) 80 mg DAILY@21 PO Last administered on 20:28; Admin Dose 80 MG; Start 06/09/17 at 23:25 Fluoxetine HCl (Prozac) 60 mg DAILY PO Last administered on 06/14/17 08:39; Admin Dose 60 MG; Start 06/10/17 at 09:00 Docusate Sodium (Colace) 100 mg BID PO Last administered on 06/14/17 08:40; Admin Dose 100 MG; Start 06/10/17 at 09:00 Senna (Senokot) 1 tab HS PO Last administered on 06/12/17 20:19; Admin Dose 1 TAB; Start 06/10/17 at 21:00 Magnesium Hydroxide (Milk Of Mag) 30 ml BID PRN PO CONSTIPATION; Start at 01:00 Lactulose (Enulose) 20 gm DAILY PRN PO CONSTIPATION; Start 06/10/17 at 01:00 Tamsulosin HCl (Flomax) 0.4 mg DAILY@21 PO Last administered on 06/13/17 20:27 ; Admin Dose 0.4 MG; Start 06/10/17 at 21:00 Acyclovir (Zovirax) 400 mg TID PO Last administered on 06/14/17 13:06; Admin Dose 400 MG; Start 06/10/17 at 09:00 Trazodone HCl (Desyrel) 25 mg HS PO Last administered on 06/13/17 20:28; Admin Dose 25 MG; Start 06/10/17 at 21:00 Pantoprazole (Protonix Tab) 40 mg DAILY@06 PO Last administered on 06/14/17 06 :22; Admin Dose 40 MG; Start 06/10/17 at 06:00 Oxycodone/ Acetaminophen (Endocet ()) 1 tab Q4H PRN PO PAIN Last administered on 06/14/17 13:06; Admin Dose 1 TAB; Start 06/10/17 at 06:00 Baclofen (Lioresal) 10 mg TID PO Last administered on 06/14/17 13:06; Admin Dose 10 MG; Start 06/10/17 at 13:00 Polyethylene Glycol (Miralax) 17 gm BID PRN PO CONSTIPATION; Start 06/13/17 at 13:30 ELIEZER MICHEL DO Jun 14, 2017 15:57
[2017-06-14] MEDS: HYDROmorphONE 1 MG/ML SYG IM PRN ×2 (16:28→18:55)
[2017-06-14 20:00] VITALS: BP 103/59; RESP 18
[2017-06-14] MEDS: ATORVASTATIN 80 MG TAB PO SCH (20:28)
[2017-06-14] MEDS: TAMSULOSIN (SR) 0.4 MG CAP PO SCH (20:28)
[2017-06-14] MEDS: SENNA TAB PO SCH (20:28)
[2017-06-14] MEDS: CLOPIDOGREL 75 MG TAB PO SCH (20:29)
[2017-06-14] MEDS: ALLOPURINOL 100 MG TAB PO SCH (20:30)
[2017-06-14] MEDS: traZODone 50 MG TAB PO SCH (20:30)
[2017-06-14] MEDS: ATENOLOL 25 MG TAB PO SCH (20:35)
[2017-06-15 02:00] VITALS: BP 118/59; RESP 18
[2017-06-15] MEDS: HYDROmorphONE 1 MG/ML SYG IM PRN ×6 (02:03→18:44)
[2017-06-15] MEDS: PANTOPRAZOLE (EC) 40 MG TAB PO SCH (06:07)
[2017-06-15 07:53] VITALS: BP 117/72; RESP 18
[2017-06-15] MEDS: OXYCODONE/ACETAMINOPHEN (10/325) TAB PO PRN ×2 (08:03→23:38)
[2017-06-15] MEDS: LEVOTHYROXINE 125 MCG TAB PO SCH (08:03)
--- NOTE | 2017-06-15 08:50 | PN ---
Date/Time of Note Date/Time of Note DATE: 06/15/17 TIME: 08:48 Assessment/Plan VTE Prophylaxis VTE Prophylaxis Intervention: other Assessment/Plan Chief Complaint/Hosp Course ASSESSMENT AND PLAN: 1. Status post-T11, T10 spinal fusion. The patient is currently stable. Continue physical therapy and pain control. will dc rj in am 2. Chronic pain syndrome. Continue current pain regimen. 3. Coronary artery disease. Continue current medical management. 4. Hypertension. Continue current blood pressure regimen. 5. Neuropathy. Continue Lyrica. 6. Hypothyroidism. Continue Synthroid. 7. History of benign prostatic hypertrophy. Continue Flomax. 8. Anxiety/Depression. Continue Prozac. 9. History of kidney stones. 10. Anemia. Monitor hemoglobin and hematocrit levels. 11. Gastrointestinal and deep venous thrombosis prophylaxis. Continue PPI and sequential leg squeezes. 12. Status post-wound infection. medicine follow up SUBJECTIVE DATA: The patient is stable. No events overnight. No fevers, chills, nausea, or vomiting. pain is well controlled with Hydromorphone OBJECTIVE DATA: HEENT: Head is normocephalic. NECK: Supple. HEART: Regular rate. LUNGS: Diminished breath sounds at the base. ABDOMEN: Soft, nontender to palpation. No rebound or guarding. EXTREMITIES: Negative for clubbing or cyanosis. No edema. DERMATOLOGIC: No rashes. MUSCULOSKELETAL: No joint effusion. NEUROLOGIC: No change in exam. MEDICATION: The patient's medications have been reviewed. Problems: Exam/Review of Systems Vital Signs Vitals Vital Signs Date Time Temp Pulse Resp B/P Pulse Ox O2 Delivery O2 Flow Rate FiO2 06/15/17 07:53 98.0 55 18 117/72 96 06/12/17 08:15 Room Air Intake and Output 06/14/17 06/14/17 06/15/17 15:00 23:00 07:00 Intake Total 800 ml 800 ml 380 ml Balance 800 ml 800 ml 380 ml Medications Medications Current Medications Allopurinol (Zyloprim) 100 mg QPM PO Last administered on 06/14/17 20:30; Admin Dose 100 MG; Start 06/10/17 at 21:00 Atenolol (Tenormin) 25 mg QPM PO Last administered on 06/13/17 20:27; Admin Dose 25 MG; Start 06/10/17 at 21:00 Clopidogrel Bisulfate (plaVIX) 75 mg QPM PO Last administered on 06/14/17 20: 29; Admin Dose 75 MG; Start 06/10/17 at 21:00 Valsartan (Diovan) 40 mg DAILY PO Last administered on 06/14/17 09:24; Admin Dose 40 MG; Start 06/10/17 at 09:00 Pregabalin (Lyrica) 100 mg BID PO Last administered on 06/14/17 20:28; Admin Dose 100 MG; Start 06/10/17 at 09:00 Acetaminophen (Tylenol Tab) 1,000 mg TID PRN PO PAIN; Start 06/09/17 at 23:00 Atorvastatin Calcium (Lipitor) 80 mg DAILY@21 PO Last administered on 20:28; Admin Dose 80 MG; Start 06/09/17 at 23:25 Fluoxetine HCl (Prozac) 60 mg DAILY PO Last administered on 06/14/17 08:39; Admin Dose 60 MG; Start 06/10/17 at 09:00 Docusate Sodium (Colace) 100 mg BID PO Last administered on 06/14/17 20:28; Admin Dose 100 MG; Start 06/10/17 at 09:00 Senna (Senokot) 1 tab HS PO Last administered on 06/14/17 20:28; Admin Dose 1 TAB; Start 06/10/17 at 21:00 Magnesium Hydroxide (Milk Of Mag) 30 ml BID PRN PO CONSTIPATION; Start at 01:00 Lactulose (Enulose) 20 gm DAILY PRN PO CONSTIPATION; Start 06/10/17 at 01:00 Tamsulosin HCl (Flomax) 0.4 mg DAILY@21 PO Last administered on 06/14/17 20:28 ; Admin Dose 0.4 MG; Start 06/10/17 at 21:00 Acyclovir (Zovirax) 400 mg TID PO Last administered on 06/14/17 20:28; Admin Dose 400 MG; Start 06/10/17 at 09:00 Trazodone HCl (Desyrel) 25 mg HS PO Last administered on 06/14/17 20:30; Admin Dose 25 MG; Start 06/10/17 at 21:00 Pantoprazole (Protonix Tab) 40 mg DAILY@06 PO Last administered on 06/15/17 06 :07; Admin Dose 40 MG; Start 06/10/17 at 06:00 Oxycodone/ Acetaminophen (Endocet (10 325)) 1 tab Q4H PRN PO PAIN Last administered on 06/15/17 08:03; Admin Dose 1 TAB; Start 06/10/17 at 06:00 Baclofen (Lioresal) 10 mg TID PO Last administered on 06/14/17 20:30; Admin Dose 10 MG; Start 06/10/17 at 13:00 Polyethylene Glycol (Miralax) 17 gm BID PRN PO CONSTIPATION; Start 06/13/17 at 13:30 ELIEZER MICHEL DO Jun 15, 2017 08:50
[2017-06-15] MEDS: BACLOFEN 10 MG TAB PO SCH ×4 (09:00→20:20)
[2017-06-15] MEDS: VALSARTAN 80 MG TAB PO SCH (09:00)
[2017-06-15] MEDS: DOCUSATE SODIUM 100 MG CAP PO SCH ×2 (09:00→20:20)
--- NOTE | 2017-06-15 09:45 | CONS ---
Date/Time of Note Date/Time of Note DATE: 06/15/17 TIME: 09:42 Consult Date/Type/Reason Admit Date/Time Jun 09, 2017 at 21:09 Subjective Motivated Objective sba ambulation 150 feet min stairs Vital Signs Date Time Temp Pulse Resp B/P Pulse Ox O2 Delivery O2 Flow Rate FiO2 06/15/17 07:53 98.0 55 18 117/72 96 06/12/17 08:15 Room Air Intake and Output 06/14/17 06/14/17 06/15/17 14:59 22:59 06:59 Intake Total 800 ml 800 ml 380 ml Balance 800 ml 800 ml 380 ml Results/Medications Medications Current Medications Allopurinol (Zyloprim) 100 mg QPM PO Last administered on 06/14/17 20:30; Admin Dose 100 MG; Start 06/10/17 at 21:00 Atenolol (Tenormin) 25 mg QPM PO Last administered on 06/13/17 20:27; Admin Dose 25 MG; Start 06/10/17 at 21:00 Clopidogrel Bisulfate (plaVIX) 75 mg QPM PO Last administered on 06/14/17 20: 29; Admin Dose 75 MG; Start 06/10/17 at 21:00 Valsartan (Diovan) 40 mg DAILY PO Last administered on 06/14/17 09:24; Admin Dose 40 MG; Start 06/10/17 at 09:00 Pregabalin (Lyrica) 100 mg BID PO Last administered on 06/14/17 20:28; Admin Dose 100 MG; Start 06/10/17 at 09:00 Acetaminophen (Tylenol Tab) 1,000 mg TID PRN PO PAIN; Start 06/09/17 at 23:00 Atorvastatin Calcium (Lipitor) 80 mg DAILY@21 PO Last administered on 20:28; Admin Dose 80 MG; Start 06/09/17 at 23:25 Fluoxetine HCl (Prozac) 60 mg DAILY PO Last administered on 06/14/17 08:39; Admin Dose 60 MG; Start 06/10/17 at 09:00 Docusate Sodium (Colace) 100 mg BID PO Last administered on 06/14/17 20:28; Admin Dose 100 MG; Start 06/10/17 at 09:00 Senna (Senokot) 1 tab HS PO Last administered on 06/14/17 20:28; Admin Dose 1 TAB; Start 06/10/17 at 21:00 Magnesium Hydroxide (Milk Of Mag) 30 ml BID PRN PO CONSTIPATION; Start at 01:00 Lactulose (Enulose) 20 gm DAILY PRN PO CONSTIPATION; Start 06/10/17 at 01:00 Tamsulosin HCl (Flomax) 0.4 mg DAILY@21 PO Last administered on 06/14/17 20:28 ; Admin Dose 0.4 MG; Start 06/10/17 at 21:00 Acyclovir (Zovirax) 400 mg TID PO Last administered on 06/14/17 20:28; Admin Dose 400 MG; Start 06/10/17 at 09:00 Trazodone HCl (Desyrel) 25 mg HS PO Last administered on 06/14/17 20:30; Admin Dose 25 MG; Start 06/10/17 at 21:00 Pantoprazole (Protonix Tab) 40 mg DAILY@06 PO Last administered on 06/15/17 06 :07; Admin Dose 40 MG; Start 06/10/17 at 06:00 Oxycodone/ Acetaminophen (Endocet (10/ 325)) 1 tab Q4H PRN PO PAIN Last administered on 06/15/17 08:03; Admin Dose 1 TAB; Start 06/10/17 at 06:00 Baclofen (Lioresal) 10 mg TID PO Last administered on 06/14/17 20:30; Admin Dose 10 MG; Start 06/10/17 at 13:00 Polyethylene Glycol (Miralax) 17 gm BID PRN PO CONSTIPATION; Start 06/13/17 at 13:30 Assessment/Plan Additional Assessment/Plan Rehab- Complicated hx multiple back surgeries- postop fungal infection, now with fracture at upper instrumentation level requiring hardware removal and posterior fusion Excellent progress, continue treatment plan Acute pain Syndrome-improved Hypertension Anemia Hypercholesterolemia Hypothyroidism Gout ARIAS SYED MD Jun 15, 2017 09:44
[2017-06-15] MEDS: ACYCLOVIR 400 MG TAB PO SCH ×3 (11:39→20:19)
[2017-06-15] MEDS: FLUOXETINE 20 MG CAP PO SCH (11:40)
[2017-06-15] MEDS: PREGABALIN 25 MG CAP PO SCH ×2 (11:40→20:19)
[2017-06-15] MEDS: CLOPIDOGREL 75 MG TAB PO SCH (20:20)
[2017-06-15] MEDS: ATORVASTATIN 80 MG TAB PO SCH (20:20)
[2017-06-15] MEDS: TAMSULOSIN (SR) 0.4 MG CAP PO SCH (20:20)
[2017-06-15] MEDS: ALLOPURINOL 100 MG TAB PO SCH (20:20)
[2017-06-15] MEDS: traZODone 50 MG TAB PO SCH (20:20)
[2017-06-15] MEDS: SENNA TAB PO SCH (20:20)
[2017-06-15] MEDS: ATENOLOL 25 MG TAB PO SCH (20:31)
[2017-06-15 22:20] VITALS: BP 123/57; RESP 18
[2017-06-16 02:00] VITALS: BP 119/62; RESP 18
[2017-06-16] MEDS: OXYCODONE/ACETAMINOPHEN (10/325) TAB PO PRN ×2 (06:06→21:10)
[2017-06-16] MEDS: LEVOTHYROXINE 125 MCG TAB PO SCH ×2 (06:06→08:13)
[2017-06-16] MEDS: PANTOPRAZOLE (EC) 40 MG TAB PO SCH (06:06)
[2017-06-16 07:30] VITALS: BP 124/60; RESP 20
[2017-06-16] MEDS: ACYCLOVIR 400 MG TAB PO SCH ×3 (08:13→21:09)
[2017-06-16] MEDS: HYDROmorphONE 1 MG/ML SYG IM PRN ×5 (08:14→18:51)
[2017-06-16] MEDS: DOCUSATE SODIUM 100 MG CAP PO SCH ×2 (09:00→21:00)
[2017-06-16] MEDS: BACLOFEN 10 MG TAB PO SCH ×3 (09:00→21:10)
[2017-06-16] MEDS: VALSARTAN 80 MG TAB PO SCH (09:00)
--- NOTE | 2017-06-16 09:32 | PN ---
Date/Time of Note Date/Time of Note DATE: 06/16/17 TIME: 09:32 Assessment/Plan VTE Prophylaxis VTE Prophylaxis Intervention: other Assessment/Plan Chief Complaint/Hosp Course ASSESSMENT AND PLAN: 1. Status post-T11, T10 spinal fusion. The patient is currently stable. Continue physical therapy and pain control. will dc rj today 2. Chronic pain syndrome. Continue current pain regimen. 3. Coronary artery disease. Continue current medical management. 4. Hypertension. Continue current blood pressure regimen. 5. Neuropathy. Continue Lyrica. 6. Hypothyroidism. Continue Synthroid. 7. History of benign prostatic hypertrophy. Continue Flomax. 8. Anxiety/Depression. Continue Prozac. 9. History of kidney stones. 10. Anemia. Monitor hemoglobin and hematocrit levels. 11. Gastrointestinal and deep venous thrombosis prophylaxis. Continue PPI and sequential leg squeezes. 12. Status post-wound infection. medicine follow up SUBJECTIVE DATA: The patient is stable. No events overnight. No fevers, chills, nausea, or vomiting. pain is well controlled with Hydromorphone OBJECTIVE DATA: HEENT: Head is normocephalic. NECK: Supple. HEART: Regular rate. LUNGS: Diminished breath sounds at the base. ABDOMEN: Soft, nontender to palpation. No rebound or guarding. EXTREMITIES: Negative for clubbing or cyanosis. No edema. DERMATOLOGIC: No rashes. MUSCULOSKELETAL: No joint effusion. NEUROLOGIC: No change in exam. MEDICATION: The patient's medications have been reviewed. Problems: Exam/Review of Systems Vital Signs Vitals Vital Signs Date Time Temp Pulse Resp B/P Pulse Ox O2 Delivery O2 Flow Rate FiO2 06/16/17 07:30 98.7 54 20 124/60 98 06/12/17 08:15 Room Air Intake and Output 06/15/17 06/15/17 06/16/17 15:00 23:00 07:00 Intake Total 800 ml 400 ml 300 ml Output Total 500 ml Balance 800 ml -100 ml 300 ml Medications Medications Current Medications Allopurinol (Zyloprim) 100 mg QPM PO Last administered on 06/15/17 20:20; Admin Dose 100 MG; Start 06/10/17 at 21:00 Atenolol (Tenormin) 25 mg QPM PO Last administered on 06/15/17 20:31; Admin Dose 25 MG; Start 06/10/17 at 21:00 Clopidogrel Bisulfate (plaVIX) 75 mg QPM PO Last administered on 06/15/17 20: 20; Admin Dose 75 MG; Start 06/10/17 at 21:00 Valsartan (Diovan) 40 mg DAILY PO Last administered on 06/15/17 09:00; Admin Dose 40 MG; Start 06/10/17 at 09:00 Pregabalin (Lyrica) 100 mg BID PO Last administered on 06/15/17 20:19; Admin Dose 100 MG; Start 06/10/17 at 09:00 Acetaminophen (Tylenol Tab) 1,000 mg TID PRN PO PAIN; Start 06/09/17 at 23:00 Atorvastatin Calcium (Lipitor) 80 mg DAILY@21 PO Last administered on 20:20; Admin Dose 80 MG; Start 06/09/17 at 23:25 Fluoxetine HCl (Prozac) 60 mg DAILY PO Last administered on 06/15/17 11:40; Admin Dose 60 MG; Start 06/10/17 at 09:00 Docusate Sodium (Colace) 100 mg BID PO Last administered on 06/15/17 20:20; Admin Dose 100 MG; Start 06/10/17 at 09:00 Senna (Senokot) 1 tab HS PO Last administered on 06/15/17 20:20; Admin Dose 1 TAB; Start 06/10/17 at 21:00 Magnesium Hydroxide (Milk Of Mag) 30 ml BID PRN PO CONSTIPATION; Start at 01:00 Lactulose (Enulose) 20 gm DAILY PRN PO CONSTIPATION; Start 06/10/17 at 01:00 Tamsulosin HCl (Flomax) 0.4 mg DAILY@21 PO Last administered on 06/15/17 20:20 ; Admin Dose 0.4 MG; Start 06/10/17 at 21:00 Acyclovir (Zovirax) 400 mg TID PO Last administered on 06/16/17 08:13; Admin Dose 400 MG; Start 06/10/17 at 09:00 Trazodone HCl (Desyrel) 25 mg HS PO Last administered on 06/15/17 20:20; Admin Dose 25 MG; Start 06/10/17 at 21:00 Pantoprazole (Protonix Tab) 40 mg DAILY@06 PO Last administered on 06/16/17 06 :06; Admin Dose 40 MG; Start 06/10/17 at 06:00 Oxycodone/ Acetaminophen (Endocet (10)) 1 tab Q4H PRN PO PAIN Last administered on 06/16/17 06:06; Admin Dose 1 TAB; Start 06/10/17 at 06:00 Baclofen (Lioresal) 10 mg TID PO Last administered on 06/15/17 20:20; Admin Dose 10 MG; Start 06/10/17 at 13:00 Polyethylene Glycol (Miralax) 17 gm BID PRN PO CONSTIPATION; Start 06/13/17 at 13:30 ELIEZER MICHEL DO Jun 16, 2017 09:32
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
[2017-06-16] MEDS: FLUOXETINE 20 MG CAP PO SCH (12:26)
[2017-06-16] MEDS: PREGABALIN 25 MG CAP PO SCH ×2 (12:29→21:11)
--- NOTE | 2017-06-16 13:20 | CONS ---
Date/Time of Note Date/Time of Note DATE: 06/16/17 TIME: 13:20 Consult Date/Type/Reason Admit Date/Time Jun 09, 2017 at 21:09 Subjective Comfortable Objective supervised ambulation Vital Signs Date Time Temp Pulse Resp B/P Pulse Ox O2 Delivery O2 Flow Rate FiO2 06/16/17 07:30 98.7 54 20 124/60 98 06/12/17 08:15 Room Air Intake and Output 06/15/17 06/15/17 06/16/17 15:00 23:00 07:00 Intake Total 800 ml 400 ml 300 ml Output Total 500 ml Balance 800 ml -100 ml 300 ml Results/Medications Medications Current Medications Allopurinol (Zyloprim) 100 mg QPM PO Last administered on 06/15/17 20:20; Admin Dose 100 MG; Start 06/10/17 at 21:00 Atenolol (Tenormin) 25 mg QPM PO Last administered on 06/15/17 20:31; Admin Dose 25 MG; Start 06/10/17 at 21:00 Clopidogrel Bisulfate (plaVIX) 75 mg QPM PO Last administered on 06/15/17 20: 20; Admin Dose 75 MG; Start 06/10/17 at 21:00 Valsartan (Diovan) 40 mg DAILY PO Last administered on 06/16/17 09:00; Admin Dose 40 MG; Start 06/10/17 at 09:00 Pregabalin (Lyrica) 100 mg BID PO Last administered on 06/16/17 12:29; Admin Dose 100 MG; Start 06/10/17 at 09:00 Acetaminophen (Tylenol Tab) 1,000 mg TID PRN PO PAIN; Start 06/09/17 at 23:00 Atorvastatin Calcium (Lipitor) 80 mg DAILY@21 PO Last administered on 20:20; Admin Dose 80 MG; Start 06/09/17 at 23:25 Fluoxetine HCl (Prozac) 60 mg DAILY PO Last administered on 06/16/17 12:26; Admin Dose 60 MG; Start 06/10/17 at 09:00 Docusate Sodium (Colace) 100 mg BID PO Last administered on 06/16/17 09:00; Admin Dose 100 MG; Start 06/10/17 at 09:00 Senna (Senokot) 1 tab HS PO Last administered on 06/15/17 20:20; Admin Dose 1 TAB; Start 06/10/17 at 21:00 Magnesium Hydroxide (Milk Of Mag) 30 ml BID PRN PO CONSTIPATION; Start at 01:00 Lactulose (Enulose) 20 gm DAILY PRN PO CONSTIPATION; Start 06/10/17 at 01:00 Tamsulosin HCl (Flomax) 0.4 mg DAILY@21 PO Last administered on 06/15/17 20:20 ; Admin Dose 0.4 MG; Start 06/10/17 at 21:00 Acyclovir (Zovirax) 400 mg TID PO Last administered on 06/16/17 12:26; Admin Dose 400 MG; Start 06/10/17 at 09:00 Trazodone HCl (Desyrel) 25 mg HS PO Last administered on 06/15/17 20:20; Admin Dose 25 MG; Start 06/10/17 at 21:00 Pantoprazole (Protonix Tab) 40 mg DAILY@06 PO Last administered on 06/16/17 06 :06; Admin Dose 40 MG; Start 06/10/17 at 06:00 Oxycodone/ Acetaminophen (Endocet (10/ 325)) 1 tab Q4H PRN PO PAIN Last administered on 06/16/17 06:06; Admin Dose 1 TAB; Start 06/10/17 at 06:00 Baclofen (Lioresal) 10 mg TID PO Last administered on 06/16/17 13:09; Admin Dose 10 MG; Start 06/10/17 at 13:00 Polyethylene Glycol (Miralax) 17 gm BID PRN PO CONSTIPATION; Start 06/13/17 at 13:30 Assessment/Plan Additional Assessment/Plan Rehab- Complicated hx multiple back surgeries- postop fungal infection, now with fracture at upper instrumentation level requiring hardware removal and posterior fusion Workingtowards dc home 06/17 Acute pain Syndrome-improved Hypertension Anemia Hypercholesterolemia Hypothyroidism ARIAS Rowan MD Jun 16, 2017 13:20
[2017-06-16 14:00] VITALS: BP 131/60; RESP 18
[2017-06-16 19:24] VITALS: BP 114/57; RESP 18
[2017-06-16] MEDS: SENNA TAB PO SCH (21:00)
[2017-06-16] MEDS: ATENOLOL 25 MG TAB PO SCH (21:00)
[2017-06-16] MEDS: CLOPIDOGREL 75 MG TAB PO SCH (21:09)
[2017-06-16] MEDS: ALLOPURINOL 100 MG TAB PO SCH (21:09)
[2017-06-16] MEDS: ATORVASTATIN 80 MG TAB PO SCH (21:09)
[2017-06-16] MEDS: traZODone 50 MG TAB PO SCH (21:10)
[2017-06-16] MEDS: TAMSULOSIN (SR) 0.4 MG CAP PO SCH (21:10)
[2017-06-17 06:01] VITALS: BP 150/75; PULSE 61; RESP 16
[2017-06-17] MEDS: OXYCODONE/ACETAMINOPHEN (10/325) TAB PO PRN (06:05)
[2017-06-17] MEDS: PANTOPRAZOLE (EC) 40 MG TAB PO SCH (06:05)
[2017-06-17 07:30] VITALS: BP 120/56; RESP 18
[2017-06-17] MEDS: LEVOTHYROXINE 125 MCG TAB PO SCH (08:15)
[2017-06-17] MEDS: HYDROmorphONE 1 MG/ML SYG IM PRN ×2 (08:16→11:58)
[2017-06-17] MEDS: DOCUSATE SODIUM 100 MG CAP PO SCH (09:33)
[2017-06-17] MEDS: PREGABALIN 25 MG CAP PO SCH (09:34)
[2017-06-17] MEDS: FLUOXETINE 20 MG CAP PO SCH (09:34)
[2017-06-17] MEDS: BACLOFEN 10 MG TAB PO SCH (09:34)
[2017-06-17] MEDS: VALSARTAN 80 MG TAB PO SCH (09:35)
[2017-06-17] MEDS: ACYCLOVIR 400 MG TAB PO SCH (09:47)
--- NOTE | 2017-06-17 09:52 | DS ---
Date/Time of Note Date/Time of Note DATE: 06/17/17 TIME: 09:51 Discharge Summary Admission/Discharge Info Admit Date/Time Jun 09, 2017 at 21:09 Discharge Date/Time Discharge Diagnosis 1.other orthopedic disorder with complicated history with multiple back surgeries and postoperative fungal infection who now more recently was noted to have a fracture at his upper instrumentation patient level requiring hardware removal and posterior fusion 2.Hypertension 3.Anemia 4. Hypercholesterolemia 5. Hypothyroidism 6. Gout 7. history of multiple back surgeries 8.Acute pain Syndrome 9.Improvements in self-care and mobility Patient Condition: Good Hospital Course Patient was admitted for comprehensive interdisciplinary acute rehabilitation. Patient made steady functional gains and improved from a mod level to a Supervised level for self care and mobility, including ambulating over 150 feet with the use of a front wheeled walker. Patient is being discharged home with recommendations for home health PT and OT follow up. DME recommendations: FWW; BSC; Shower Chair Patient will follow up with PMD upon DC. Home Meds Reported Medications Pantoprazole* (Pantoprazole*) 40 Mg Tablet.dr, 40 MG PO DAILY 05/13/13 Hydrocodone Bit-Acetaminophen (Hydrocodone Bit-APAP) 1 Each Tablet, 1 EACH PO BID Y 03/28/13 Oxycodone Hcl-Acetaminophen* (Endocet*) 1 Tab Tablet, 1 TAB PO Y 03/28/13 Diphenoxylate Hcl-Atropine* (Diphenoxylate Hcl-Atropine*) 1 Tab Tablet, 1 TAB PO 4 TIMES A DAY Y, #1 03/28/13 Tadalafil (Cialis) 20 Mg Tablet, 20 MG PO Y 03/28/13 Carisoprodol* (Carisoprodol*) 350 Mg Tablet, 350 MG PO DAILY 03/28/13 Alprazolam (Xanax) 0.25 Mg Tab, 0.5 MG PO Q6 03/17/13 Gabapentin* (Gabapentin*) 300 Mg Capsule, 300 MG PO 03/17/13 [Prenisolone] No Conflict Check, 1 OP QID 03/17/13 Trazodone Hcl* (Trazodone Hcl*) 150 Mg Tablet, 150 MG PO DAILY 09/20/12 Clopidogrel Bisulfate (Plavix) 75 Mg Tablet, 75 MG PO DAILY 07/31/11 Aspirin* (Aspirin* Chew) 81 Mg Tab.chew, 325 MG PO DAILY 07/31/11 Atorvastatin (Lipitor) 40 Mg Tablet, 80 MG PO HS 06/17/11 Atenolol* (Atenolol*) 25 Mg Tablet, 25 MG PO DAILY 06/17/11 Levothyroxine Sodium* (Levothyroxine Sodium*) 125 Mcg Tablet, 125 MCG PO DAILY 06/17/11 Allopurinol* (Allopurinol*) 100 Mg Tablet, 100 MG PO DAILY 06/17/11 Primary Care Provider DO KUNAL Amato LIVA L. MD Jun 17, 2017 09:52
--- NOTE | 2017-06-17 11:48 | PN ---
Date/Time of Note Date/Time of Note DATE: 06/17/17 TIME: 11:48 Assessment/Plan VTE Prophylaxis VTE Prophylaxis Intervention: other Assessment/Plan Chief Complaint/Hosp Course ASSESSMENT AND PLAN: 1. Status post-T11, T10 spinal fusion. The patient is currently stable. Continue physical therapy and pain control. 2. Chronic pain syndrome. Continue current pain regimen. 3. Coronary artery disease. Continue current medical management. 4. Hypertension. Continue current blood pressure regimen. 5. Neuropathy. Continue Lyrica. 6. Hypothyroidism. Continue Synthroid. 7. History of benign prostatic hypertrophy. Continue Flomax. 8. Anxiety/Depression. Continue Prozac. 9. History of kidney stones. 10. Anemia. Monitor hemoglobin and hematocrit levels. 11. Gastrointestinal and deep venous thrombosis prophylaxis. Continue PPI and sequential leg squeezes. 12. Status post-wound infection. medicine follow up SUBJECTIVE DATA: The patient is stable. No events overnight. No fevers, chills, nausea, or vomiting. pain is well controlled with Hydromorphone OBJECTIVE DATA: HEENT: Head is normocephalic. NECK: Supple. HEART: Regular rate. LUNGS: Diminished breath sounds at the base. ABDOMEN: Soft, nontender to palpation. No rebound or guarding. EXTREMITIES: Negative for clubbing or cyanosis. No edema. DERMATOLOGIC: No rashes. MUSCULOSKELETAL: No joint effusion. NEUROLOGIC: No change in exam. MEDICATION: The patient's medications have been reviewed. ok to dc from medicine standpoint Problems: Exam/Review of Systems Vital Signs Vitals Vital Signs Date Time Temp Pulse Resp B/P Pulse Ox O2 Delivery O2 Flow Rate FiO2 06/17/17 07:30 97.8 57 18 120/56 96 06/17/17 06:01 Room Air Intake and Output 06/16/17 06/16/17 06/17/17 15:00 23:00 07:00 Intake Total 500 ml 920 ml 400 ml Balance 500 ml 920 ml 400 ml Medications Medications Current Medications Allopurinol (Zyloprim) 100 mg QPM PO Last administered on 06/16/17 21:09; Admin Dose 100 MG; Start 06/10/17 at 21:00 Atenolol (Tenormin) 25 mg QPM PO Last administered on 06/15/17 20:31; Admin Dose 25 MG; Start 06/10/17 at 21:00 Clopidogrel Bisulfate (plaVIX) 75 mg QPM PO Last administered on 06/16/17 21: 09; Admin Dose 75 MG; Start 06/10/17 at 21:00 Valsartan (Diovan) 40 mg DAILY PO Last administered on 06/17/17 09:35; Admin Dose 40 MG; Start 06/10/17 at 09:00 Pregabalin (Lyrica) 100 mg BID PO Last administered on 06/17/17 09:34; Admin Dose 100 MG; Start 06/10/17 at 09:00 Acetaminophen (Tylenol Tab) 1,000 mg TID PRN PO PAIN; Start 06/09/17 at 23:00 Atorvastatin Calcium (Lipitor) 80 mg DAILY@21 PO Last administered on 21:09; Admin Dose 80 MG; Start 06/09/17 at 23:25 Fluoxetine HCl (Prozac) 60 mg DAILY PO Last administered on 06/17/17 09:34; Admin Dose 60 MG; Start 06/10/17 at 09:00 Docusate Sodium (Colace) 100 mg BID PO Last administered on 06/17/17 09:33; Admin Dose 100 MG; Start 06/10/17 at 09:00 Senna (Senokot) 1 tab HS PO Last administered on 06/15/17 20:20; Admin Dose 1 TAB; Start 06/10/17 at 21:00 Magnesium Hydroxide (Milk Of Mag) 30 ml BID PRN PO CONSTIPATION; Start at 01:00 Lactulose (Enulose) 20 gm DAILY PRN PO CONSTIPATION; Start 06/10/17 at 01:00 Tamsulosin HCl (Flomax) 0.4 mg DAILY@21 PO Last administered on 06/16/17 21:10 ; Admin Dose 0.4 MG; Start 06/10/17 at 21:00 Acyclovir (Zovirax) 400 mg TID PO Last administered on 06/17/17 09:47; Admin Dose 400 MG; Start 06/10/17 at 09:00 Trazodone HCl (Desyrel) 25 mg HS PO Last administered on 06/16/17 21:10; Admin Dose 25 MG; Start 06/10/17 at 21:00 Pantoprazole (Protonix Tab) 40 mg DAILY@06 PO Last administered on 06/17/17 06 :05; Admin Dose 40 MG; Start 06/10/17 at 06:00 Oxycodone/ Acetaminophen (Endocet (10)) 1 tab Q4H PRN PO PAIN Last administered on 06/17/17 06:05; Admin Dose 1 TAB; Start 06/10/17 at 06:00 Baclofen (Lioresal) 10 mg TID PO Last administered on 06/17/17 09:34; Admin Dose 10 MG; Start 06/10/17 at 13:00 Polyethylene Glycol (Miralax) 17 gm BID PRN PO CONSTIPATION; Start 06/13/17 at 13:30 ELIEZER MICHEL DO Jun 17, 2017 11:48
== END 2017-06-17 14:30 | disposition home health service (06) | DRG 945 ==
LOC: VRC 21:09
PROVIDERS: ADMIT Physical Medicine & Rehabilitation; ATTEND Internal Medicine Nephrology
PROC: F08Z1ZZ Dressing Techniques Treatment (ICD-10-PCS; principal; 2017-06-09)
PROC: F08Z0ZZ Bathing/Showering Techniques Treatment (ICD-10-PCS; 2017-06-09)
PROC: F08Z2ZZ Grooming/Personal Hygiene Treatment (ICD-10-PCS; 2017-06-09)
PROC: F07Z5ZZ Bed Mobility Treatment (ICD-10-PCS; 2017-06-09)
PROC: F07Z8ZZ Transfer Training Treatment (ICD-10-PCS; 2017-06-09)
PROC: F07Z9ZZ Gait Training/Functional Ambulation Treatment (ICD-10-PCS; 2017-06-09)
DX: T84.216D Breakdown (mechanical) of internal fixation device of vertebrae, subsequent encounter (principal); F33.9 Major depressive disorder, recurrent, unspecified; I10 Essential (primary) hypertension; G62.9 Polyneuropathy, unspecified; Y79.8 Miscellaneous orthopedic devices associated with adverse incidents, not elsewhere classified; D64.9 Anemia, unspecified; E78.00 Pure hypercholesterolemia, unspecified; M10.9 Gout, unspecified; Z98.1 Arthrodesis status; E03.9 Hypothyroidism, unspecified; N40.0 Benign prostatic hyperplasia without lower urinary tract symptoms; F41.9 Anxiety disorder, unspecified; F32.9 Major depressive disorder, single episode, unspecified; G89.29 Other chronic pain; Z87.442 Personal history of urinary calculi; M54.5 Low back pain; G89.18 Other acute postprocedural pain; I25.10 Atherosclerotic heart disease of native coronary artery without angina pectoris
CPT/HCPCS: 80053; 81003; 85025; 87081; 87086; 97110; 97112; 97116; 97150; 97163; 97167; 97530; 97535; J1170

== ENCOUNTER 2017-07-16 17:25 | Inpatient (IN) | payer MEDICARE ==
[~2017-07-16] VITALS: Ht 172.7 cm; Wt 77.5 kg
[2017-07-16 17:27] VITALS: Ht 172.7 cm; Wt 77.5 kg
[2017-07-16] MEDS ORDERED: ASPIRIN 325 MG TAB PO STA (19:20)
[2017-07-16 19:55] LABS: BASOPHILS % 0.4 % (0.0-2.0); EOSINOPHILS # 0.2 10^3/ul (0.0-0.5); EOSINOPHILS % 2.4 % (0.0-7.0); HEMATOCRIT 39.2 % (42.0-52.0); HEMOGLOBIN 12.9 g/dl (14.0-18.0); LYMPHOCYTES # 1.8 10^3/ul (0.8-2.9); LYMPHOCYTES % 18.5 % (15.0-51.0); MEAN CORPUSCULAR HEMOGLOBIN 28.5 pg (29.0-33.0); MEAN CORPUSCULAR HGB CONC 32.9 g/dl (32.0-37.0); MEAN CORPUSCULAR VOLUME 86.7 fl (82.0-101.0); MEAN PLATELET VOLUME 11.1 fl (7.4-10.4); MONOCYTE # 0.7 10^3/ul (0.3-0.9); MONOCYTES % 7.2 % (0.0-11.0); NEUTROPHIL # 6.7 10^3/ul (1.6-7.5); PLATELET COUNT 299 10^3/UL (140-415); RED BLOOD COUNT 4.52 10^6/ul (4.70-6.10); RED CELL DISTRIBUTION WIDTH 13.9 % (11.5-14.5); WHITE BLOOD COUNT 9.5 10^3/ul (4.8-10.8)
[2017-07-16 20:19] LABS: ALANINE AMINOTRANSFERASE 23 IU/L (13-69); ALBUMIN 3.7 g/dl (3.3-4.9); ALBUMIN/GLOBULIN RATIO 1.02; ALKALINE PHOSPHATASE 128 IU/L (42-121); ANION GAP 14 (8-16); ASPARTATE AMINO TRANSFERASE 15 IU/L (15-46); BILIRUBIN,INDIRECT 0.4 mg/dl (0-1.1); BILIRUBIN,TOTAL 0.4 mg/dl (0.2-1.3); BLOOD UREA NITROGEN 11 mg/dl (7-20); CALCIUM 9.3 mg/dl (8.4-10.2); CARBON DIOXIDE 28 mmol/L (21-31); CHLORIDE 104 mmol/L (97-110); GLUCOSE 100 mg/dl (70-220); POTASSIUM 3.8 mmol/L (3.5-5.1); SODIUM 142 mmol/L (135-144); TOTAL PROTEIN 7.3 g/dl (6.1-8.1)
[2017-07-16 20:35] LABS: TROPONIN-I < 0.012 ng/ml (0.00-0.12)
[2017-07-16] MEDS ORDERED: FENTAnyl 50 MCG/ML VIAL IV ONE (21:00)
[2017-07-16] MEDS ORDERED: LORAZEPAM 2 MG INJ IV ONE (21:00)
[2017-07-16] MEDS ORDERED: NITROGLYCERIN 2% 1 GM OINT PKT TD ONE (21:30)
--- NOTE | 2017-07-16 21:32 | RADRPT ---
PROCEDURE: XR Chest. CLINICAL INDICATION: Chest pain. TECHNIQUE: Single frontal view of the chest. COMPARISON: 05/13/2013 FINDINGS: Heart size is at upper limits of normal. Atherosclerotic calcifications in the thoracic aorta. New p artially visualized norma and transpedicular screw fixators at the mid to lower thoracic spine and upp er lumbar spine. T he lungs are clear. No signs of pleural fluid or pneumothorax are seen. The osseous structures and s oft tissues are unremarkable. IMPRESSION: No evidence for active cardiopulmonary disease. RPTAT: [facility] Physician Naya Date Time Electronically viewed and signed by Physician Naya on 07/16/2017 21:31 RS/
[2017-07-16] MEDS ORDERED: KETOROLAC 30 MG INJ IV ONE (22:18)
[2017-07-17] VITALS (13 sets, daily range): BP systolic 124–133; BP diastolic 55–63; PULSE 54–66; RESP 18–20; TEMP 98.7
--- NOTE | 2017-07-17 00:20 | ERA ---
ER Documentation Chief Complaint Date/Time DATE: 07/17/17 TIME: 00:16 Chief Complaint LEFT CHEST PAIN SINCE 1729, HX OF HEART STENT HPI This is a 66-year-old male with a past medical history of hypertension, hyperlipidemia, coronary disease status post stenting in the past, on aspirin and Plavix, hypothyroidism who is presenting with moderate to severe left-sided sharp stabbing chest pain radiating into the left arm with associated shortness of breath, nausea, headache, diaphoresis and fatigue. The patient reports that her the symptoms started at around 5:30 PM. He has been intermittently having these pains and was recently evaluated by his linen clerk, Dr. Mark Montes, who scheduled a cardiac catheterization for next week. However, the patient was instructed to come to the emergency department for admission if his symptoms recurred, which they did today ROS All systems reviewed and are negative except as per history of present illness. Medications Home Meds Reported Medications Pantoprazole* (Pantoprazole*) 40 Mg Tablet., 40 MG PO DAILY 05/13/13 Hydrocodone Bit-Acetaminophen (Hydrocodone Bit-APAP) 1 Each Tablet, 1 EACH PO BID Y 03/28/13 Oxycodone Hcl-Acetaminophen* (Endocet*) 1 Tab Tablet, 1 TAB PO Y 03/28/13 Diphenoxylate Hcl-Atropine* (Diphenoxylate Hcl-Atropine*) 1 Tab Tablet, 1 TAB PO 4 TIMES A DAY Y, #1 03/28/13 Tadalafil (Cialis) 20 Mg Tablet, 20 MG PO Y 03/28/13 Carisoprodol* (Carisoprodol*) 350 Mg Tablet, 350 MG PO DAILY 03/28/13 Alprazolam (Xanax) 0.25 Mg Tab, 0.5 MG PO Q6 03/17/13 Gabapentin* (Gabapentin*) 300 Mg Capsule, 300 MG PO 03/17/13 [Prenisolone] No Conflict Check, 1 OP QID 03/17/13 Trazodone Hcl* (Trazodone Hcl*) 150 Mg Tablet, 150 MG PO DAILY 09/20/12 Clopidogrel Bisulfate (Plavix) 75 Mg Tablet, 75 MG PO DAILY 07/31/11 Aspirin* (Aspirin* Chew) 81 Mg Tab.chew, 325 MG PO DAILY 07/31/11 Atorvastatin (Lipitor) 40 Mg Tablet, 80 MG PO HS 06/17/11 Atenolol* (Atenolol*) 25 Mg Tablet, 25 MG PO DAILY 06/17/11 Levothyroxine Sodium* (Levothyroxine Sodium*) 125 Mcg Tablet, 125 MCG PO DAILY 06/17/11 Allopurinol* (Allopurinol*) 100 Mg Tablet, 100 MG PO DAILY 06/17/11 Allergies Allergies: Coded Allergies: iodine (Verified Allergy, Severe, CARDIAC ARREST, 07/16/17) Penicillins (Verified Allergy, Unknown, RASHES, 07/16/17) Sulfa (Sulfonamide Antibiotics) (Verified Allergy, Unknown, RASHES, ) morphine (Unverified Allergy, Unknown, 07/16/17) PMhx/Soc History of Surgery: Yes (s/p spinal fusion-hx of back surgery) Anesthesia Reaction: No Hx Neurological Disorder: No Hx Respiratory Disorders: No Hx Cardiac Disorders: Yes (HTN, HIGH CHOLESTEROL) Hx Psychiatric Problems: Yes (ANXIETY) Hx Miscellaneous Medical Probl: Yes (HYPOTHYROID, KIDNEY STONES) Hx Alcohol Use: No Hx Substance Use: No Hx Tobacco Use: No Smoking Status: Never smoker FmHx Family History: coronary disease Physical Exam Vitals Vital Signs Date Time Temp Pulse Resp B/P Pulse Ox O2 Delivery O2 Flow Rate FiO2 07/17/17 01:07 98.7 57 20 143/81 98 Room Air 07/17/17 00:00 98.7 67 20 129/82 95 Room Air 07/16/17 22:00 98.7 62 20 133/76 95 Room Air 07/16/17 19:11 98.7 57 20 161/92 100 Room Air 07/16/17 17:27 98.7 69 20 156/85 98 Physical Exam Const: [] Head: Atraumatic Eyes: Normal Conjunctiva ENT: Normal External Ears, Nose and Mouth. Neck: Full range of motion..~ No meningismus. Resp: Clear to auscultation bilaterally Cardio: Regular rate and rhythm, no murmurs Abd: Soft, non tender, non distended. Normal bowel sounds Skin: No petechiae or rashes Back: No midline or flank tenderness Ext: No cyanosis, or edema Neur: Awake and alert Psych: Normal Mood and Affect Result Diagram: 9/16/17 1930 9/16/17 1930 Results 24 hrs Laboratory Tests Test 07/16/17 19:30 White Blood Count 9.510^3/ul Red Blood Count 4.5210^6/ul Hemoglobin 12.9g/dl Hematocrit 39.2% Mean Corpuscular Volume 86.7fl Mean Corpuscular Hemoglobin 28.5pg Mean Corpuscular Hemoglobin Concent 32.9g/dl Red Cell Distribution Width 13.9% Platelet Count 70805^3/UL Mean Platelet Volume 11.1fl Neutrophils % 71.0% Lymphocytes % 18.5% Monocytes % 7.2% Eosinophils % 2.4% Basophils % 0.4% Nucleated Red Blood Cells % 0.0/100WBC Neutrophils # 6.710^3/ul Lymphocytes # 1.810^3/ul Monocytes # 0.710^3/ul Eosinophils # 0.210^3/ul Basophils # 0.010^3/ul Nucleated Red Blood Cells # 0.010^3/ul Sodium Level 142mmol/L Potassium Level 3.8mmol/L Chloride Level 104mmol/L Carbon Dioxide Level 28mmol/L Anion Gap 14 Blood Urea Nitrogen 11mg/dl Creatinine 1.50mg/dl Glucose Level 100mg/dl Calcium Level 9.3mg/dl Total Bilirubin 0.4mg/dl Direct Bilirubin 0.00mg/dl Indirect Bilirubin 0.4mg/dl Aspartate Amino Transf (AST/SGOT) 15IU/L Alanine Aminotransferase (ALT/SGPT) 23IU/L Alkaline Phosphatase 128IU/L Troponin I < 0.012ng/ml Total Protein 7.3g/dl Albumin 3.7g/dl Globulin 3.60g/dl Albumin/Globulin Ratio 1.02 Current Medications Medications (Trade) Dose Ordered Sig/Chris Route PRN Reason Start Time Stop Time Status Last Admin Dose Admin Aspirin (Aspirin) 325 mg ONCE STAT PO 07/16/17 19:20 07/16/17 19:22 DC 07/16/17 19:44 Fentanyl (Sublimaze) 50 mcg ONCE ONCE IV 07/16/17 21:00 07/16/17 21:00 DC Lorazepam (Ativan) 0.5 mg ONCE ONCE IV 07/16/17 21:00 07/16/17 21:01 DC 07/16/17 21:04 Nitroglycerin (Nitroglycerin 2% Oint) 2 inch ONCE ONCE TD 07/16/17 21:30 07/16/17 21:33 DC 07/16/17 21:38 Ketorolac Tromethamine (Toradol) 30 mg ONCE ONCE IV 07/16/17 22:18 07/16/17 22:19 DC 07/16/17 22:26 Ondansetron HCl (Zofran Inj) 4 mg ER BRIDGE PRN IV NAUSEA AND/OR VOMITING 07/17/17 00:30 07/18/17 00:29 Acetaminophen (Tylenol Tab) 650 mg ER BRIDGE PRN PO MILD PAIN/FEVER 07/17/17 00:30 07/18/17 00:29 Haloperidol (Haldol) 5 mg ONCE ONCE IM 07/17/17 01:00 07/17/17 01:01 DC 07/17/17 01:07 Procedures/MDM MDM The patient's presentation warrants a cardiac workup. There is no evidence of a trauma or injury to the area to suggest a musculoskeletal component. The patient does have a history of anxiety, but his symptoms do not endorse anxiety as the etiology. Labs The patient's blood work was obtained and reviewed. The patient has no leukocytosis or left shift. He is afebrile and I do not suspect a systemic infection. The patient does have a mild anemia today that does not need to be emergently treated. Patient's CMP demonstrates elevation in creatinine, but this is his baseline. He does not have any significant electrolyte abnormalities. The patient's troponin today is negative. Imaging CXR FINDINGS: Heart size is at upper limits of normal. Atherosclerotic calcifications in the thoracic aorta. New partially visualized norma and transpedicular screw fixators at the mid to lower thoracic spine and upper lumbar spine. The lungs are clear. No signs of pleural fluid or pneumothorax are seen. The osseous structures and soft tissues are unremarkable. IMPRESSION: No evidence for active cardiopulmonary disease. Electronically viewed and signed by Physician Naya on 07/16/2017 21:31 EKG EKG read by me: Rate/Rhythm: Regular rate and rhythm at a rate of 64 Intervals: Normal [place]: Normal Impression: No evidence of ischemia or arrhythmia Disposition The patient was given aspirin in the emergency department. The patient was also given Toradol. His symptoms did resolve in the emergency department. However, given his history and the direction from his linen clerk, seems prudent to admit the patient for further evaluation and management. The patient will need to be seen by his linen clerk in the hospital. It sounds like he will likely get a cardiac catheterization. The patient's vital signs remained stable and the patient's workup was reassuring. Departure Diagnosis: Primary Impression: Chest pain Qualified Code: R07.9 - Chest pain, unspecified type Condition: Serious BERNY ARIZA MD Jul 17, 2017 00:20
[2017-07-17] MEDS ORDERED: ONDANSETRON 4 MG INJ IV PRN (00:30)
[2017-07-17] MEDS ORDERED: ACETAMINOPHEN 325 MG TAB PO PRN ×2 (00:30→02:30)
[2017-07-17] MEDS ORDERED: HALOPERIDOL 5 MG INJ IM ONE (01:00)
[2017-07-17] MEDS ORDERED: HYDROCODONE/APAP (5/325) TAB PO PRN ×2 (02:10→02:37)
[2017-07-17] MEDS: LORAZEPAM 2 MG INJ IV PRN (02:23)
[2017-07-17] MEDS ORDERED: ALPRAZOLAM 0.25 MG TAB PO PRN (03:00)
[2017-07-17] MEDS: LEVOTHYROXINE 125 MCG TAB PO SCH (06:40)
[2017-07-17] MEDS: PANTOPRAZOLE (EC) 40 MG TAB PO SCH (06:40)
[2017-07-17 07:18] LABS: BASOPHIL # 0.1 10^3/ul (0.0-0.1); BASOPHILS % 0.7 % (0.0-2.0); EOSINOPHILS # 0.3 10^3/ul (0.0-0.5); HEMATOCRIT 33.7 % (42.0-52.0); HEMOGLOBIN 10.9 g/dl (14.0-18.0); LYMPHOCYTES # 2.1 10^3/ul (0.8-2.9); LYMPHOCYTES % 27.8 % (15.0-51.0); MEAN CORPUSCULAR HEMOGLOBIN 27.9 pg (29.0-33.0); MEAN CORPUSCULAR HGB CONC 32.3 g/dl (32.0-37.0); MEAN CORPUSCULAR VOLUME 86.4 fl (82.0-101.0); MEAN PLATELET VOLUME 11.7 fl (7.4-10.4); MONOCYTE # 0.6 10^3/ul (0.3-0.9); MONOCYTES % 7.9 % (0.0-11.0); NEUTROPHIL # 4.4 10^3/ul (1.6-7.5); NEUTROPHILS % 59.1 % (39.0-77.0); PLATELET COUNT 253 10^3/UL (140-415); RED CELL DISTRIBUTION WIDTH 14.3 % (11.5-14.5); WHITE BLOOD COUNT 7.5 10^3/ul (4.8-10.8)
[2017-07-17 07:41] LABS: ALBUMIN 3.2 g/dl (3.3-4.9); ALBUMIN/GLOBULIN RATIO 1.03; BILIRUBIN,INDIRECT 0.3 mg/dl (0-1.1); BILIRUBIN,TOTAL 0.3 mg/dl (0.2-1.3); CALCIUM 8.6 mg/dl (8.4-10.2); CHOL/HDL RATIO 5.4 RATIO; CREATININE 1.49 mg/dl (0.61-1.24); MAGNESIUM 1.9 mg/dl (1.7-2.5); PHOSPHORUS 3.5 mg/dl (2.5-4.9); POTASSIUM 3.5 mmol/L (3.5-5.1); TOTAL PROTEIN 6.3 g/dl (6.1-8.1)
[2017-07-17 08:25] LABS: CREATINE KINASE 159 IU/L (23-200)
[2017-07-17 08:30] LABS: CK-MB 0.86 ng/ml (0.0-2.4); TROPONIN-I < 0.012 ng/ml (0.00-0.12)
[2017-07-17] MEDS: ATENOLOL 25 MG TAB PO SCH (09:00)
[2017-07-17] MEDS: GABAPENTIN 300 MG CAP PO SCH ×2 (09:03→22:07)
[2017-07-17] MEDS: ALLOPURINOL 100 MG TAB PO SCH (09:04)
[2017-07-17] MEDS: CARISOPRODOL 350 MG TAB PO SCH (09:04)
[2017-07-17] MEDS: CLOPIDOGREL 75 MG TAB PO SCH (09:04)
[2017-07-17] MEDS: ASPIRIN (EC) 81 MG TAB PO SCH (09:45)
[2017-07-17 10:13] LABS: THYROID STIMULATING HORMONE 5.4 MIU/L (0.465-4.680)
--- NOTE | 2017-07-17 10:23 | HP ---
Date/Time of Note Date/Time of Note DATE: 07/17/17 TIME: :18 Assessment/Plan VTE Prophylaxis VTE Prophylaxis Intervention: other Lines/Catheters IV Catheter Type (from Nrsg): Saline Lock Assessment/Plan Chief Complaint/Hosp Course This is a 66-year-old male with a past medical history of hypertension, hyperlipidemia, coronary disease status post stenting in the past, on aspirin and Plavix, hypothyroidism who is presenting with moderate to severe left-sided sharp stabbing chest pain radiating into the left arm with associated shortness of breath, nausea, headache, diaphoresis and fatigue. The patient reports that her the symptoms started at around 5:30 PM. He has been intermittently having these pains and was recently evaluated by his small package and bundle sorter clerk, Dr. Mark Montes, who scheduled a cardiac catheterization for next week. However, the patient was instructed to come to the emergency department for admission if his symptoms recurred. While in ER he was given aspirin and Toradol. He was recently admitted to rehab in [facility] after back surgery ROS All systems reviewed and are negative except as per history of present illness. Medications Home Meds Reported Medications Pantoprazole* (Pantoprazole*) 40 Mg Tablet., 40 MG PO DAILY 05/13/13 Hydrocodone Bit-Acetaminophen (Hydrocodone Bit-APAP) 1 Each Tablet, 1 EACH PO BID Y 03/28/13 Oxycodone Hcl-Acetaminophen* (Endocet*) 1 Tab Tablet, 1 TAB PO Y 03/28/13 Diphenoxylate Hcl-Atropine* (Diphenoxylate Hcl-Atropine*) 1 Tab Tablet, 1 TAB PO 4 TIMES A DAY Y, #1 03/28/13 Tadalafil (Cialis) 20 Mg Tablet, 20 MG PO Y 03/28/13 Carisoprodol* (Carisoprodol*) 350 Mg Tablet, 350 MG PO DAILY 03/28/13 Alprazolam (Xanax) 0.25 Mg Tab, 0.5 MG PO Q6 03/17/13 Gabapentin* (Gabapentin*) 300 Mg Capsule, 300 MG PO 03/17/13 [Prenisolone] No Conflict Check, 1 OP QID 03/17/13 Trazodone Hcl* (Trazodone Hcl*) 150 Mg Tablet, 150 MG PO DAILY 09/20/12 Clopidogrel Bisulfate (Plavix) 75 Mg Tablet, 75 MG PO DAILY 07/31/11 Aspirin* (Aspirin* Chew) 81 Mg Tab.chew, 325 MG PO DAILY 07/31/11 Atorvastatin (Lipitor) 40 Mg Tablet, 80 MG PO HS 06/17/11 Atenolol* (Atenolol*) 25 Mg Tablet, 25 MG PO DAILY 06/17/11 Levothyroxine Sodium* (Levothyroxine Sodium*) 125 Mcg Tablet, 125 MCG PO DAILY 06/17/11 Allopurinol* (Allopurinol*) 100 Mg Tablet, 100 MG PO DAILY 06/17/11 Allergies Allergies: Coded Allergies: iodine (Verified Allergy, Severe, CARDIAC ARREST, 07/16/17) Penicillins (Verified Allergy, Unknown, RASHES, 07/16/17) Sulfa (Sulfonamide Antibiotics) (Verified Allergy, Unknown, RASHES, ) morphine (Unverified Allergy, Unknown, 07/16/17) PMhx/Soc History of Surgery: Yes (s/p spinal fusion-hx of back surgery) Anesthesia Reaction: No Hx Neurological Disorder: No Hx Respiratory Disorders: No Hx Cardiac Disorders: Yes (HTN, HIGH CHOLESTEROL) Hx Psychiatric Problems: Yes (ANXIETY) Hx Miscellaneous Medical Probl: Yes (HYPOTHYROID, KIDNEY STONES) Hx Alcohol Use: No Hx Substance Use: No Hx Tobacco Use: No Smoking Status: Never smoker FmHx Family History: coronary disease Physical Exam Head: Atraumatic Eyes: Normal Conjunctiva ENT: Normal External Ears, Nose and Mouth. Neck: Full range of motion..~ No meningismus. Resp: Clear to auscultation bilaterally Cardio: Regular rate and rhythm, no murmurs Abd: Soft, non tender, non distended. Normal bowel sounds Skin: No petechiae or rashes Back: No midline or flank tenderness Ext: No cyanosis, or edema Neur: Awake and alert Psych: Normal Mood and Affect Imaging CXR FINDINGS: Heart size is at upper limits of normal. Atherosclerotic calcifications in the thoracic aorta. New partially visualized norma and transpedicular screw fixators at the mid to lower thoracic spine and upper lumbar spine. The lungs are clear. No signs of pleural fluid or pneumothorax are seen. The osseous structures and soft tissues are unremarkable. IMPRESSION: No evidence for active cardiopulmonary disease. Electronically viewed and signed by Physician Naya on 07/16/2017 21:31 EKG Rate/Rhythm: Regular rate and rhythm at a rate of 64 Intervals: Normal [place]: Normal Impression: No evidence of ischemia or arrhythmia Impression and plan: chest pain/ACS: has history of cad. His symptoms did resolve in the emergency department. However, given his history and the direction from his small package and bundle sorter clerk, seems prudent to admit the patient for further evaluation and management. The patient will need to be seen by his small package and bundle sorter clerk in the hospital. He likely get a cardiac catheterization. The patient's vital signs remained stable. Meanwhile will continue with medical management Problems: HPI/ROS Admit Date/Time Admit Date/Time Jul 17, 2017 at 00:21 PMH/Family/Social Social History Smoking Status: Never smoker Exam/Review of Systems Vital Signs Vitals Vital Signs Date Time Temp Pulse Resp B/P Pulse Ox O2 Delivery O2 Flow Rate FiO2 07/17/17 08:06 54 07/17/17 07:44 97.7 19 124/60 95 07/17/17 04:00 Room Air Labs Result Diagram: 07/17/1761807/17/17618 Medications Medications Current Medications Lorazepam (Ativan) 1 mg Q3 PRN IV ANXIETY Last administered on 07/17/17 02:23 ; Admin Dose 1 MG; Start 07/17/17 at 02:09 Acetaminophen (Tylenol Tab) 650 mg Q6H PRN PO PAIN AND OR ELEVATED TEMP; Start 07/17/17 at 02:30 Gabapentin (Neurontin) 300 mg BID PO Last administered on 07/17/17 09:03; Admin Dose 300 MG; Start 07/17/17 at 09:00 Acetaminophen/ Hydrocodone Bitart ([place] (5/325)) 1 tab Q4H PRN PO PAIN LEVEL 4 -6; Start 07/17/17 at 02:37 Allopurinol (Zyloprim) 100 mg DAILY PO Last administered on 07/17/17 09:04; Admin Dose 100 MG; Start 07/17/17 at 09:00 Alprazolam (Xanax) 0.5 mg Q6H PRN PO ANXIETY; Start 07/17/17 at 03:00 Aspirin (Halfprin) 81 mg DAILY PO Last administered on 07/17/17 09:45; Admin Dose 81 MG; Start 07/17/17 at 09:00 Atenolol (Tenormin) 25 mg DAILY PO ; Start 07/17/17 at 09:00 Atorvastatin Calcium (Lipitor) 80 mg HS PO ; Start 07/17/17 at 21:00 Carisoprodol (Soma) 350 mg DAILY PO Last administered on 07/17/17 09:04; Admin Dose 350 MG; Start 07/17/17 at 09:00 Clopidogrel Bisulfate (plaVIX) 75 mg DAILY PO Last administered on 07/17/17 09 :04; Admin Dose 75 MG; Start 07/17/17 at 09:00 Levothyroxine Sodium (Synthroid) 125 mcg DAILY@06 PO Last administered on 06:40; Admin Dose 125 MCG; Start 07/17/17 at 06:00 Pantoprazole (Protonix Tab) 40 mg DAILY@06 PO Last administered on 07/17/17 06 :40; Admin Dose 40 MG; Start 07/17/17 at 06:00 Trazodone HCl (Desyrel) 150 mg HS PO ; Start 07/17/17 at 21:00 ELIEZER MICHEL DO Jul 17, 2017 10:23
--- NOTE | 2017-07-17 16:25 | CONS ---
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 Mark Montes regarding timing of coronary angiography Problems: Consultation Date/Type/Reason Admit Date/Time Jul 17, 2017 at 00:21 Type of Consultation: Cardiology Reason for Consultation chest pain Hx of Present Illness The patient is a 66 year-old male who presented with worsening chest pain. He has had intermittent chest pain for the past month and was planned for coronary angiography on 07/21/2017 by his primary backfiller, Dr. Mark Montes. However , he presented to the emergency department due to worsening of his chest pain. He describes intermittent sharp left-sided chest pain that occurs frequently throughout the day, and is associated with nausea. He has been unable to tolerate much oral intake due to the nausea. EKG showed normal sinus rhythm without acute ischemic changes. Troponins have been negative x 3. Creatinine is elevated at 1.5. He has known coronary artery disease and is status post PCI to the second obtuse marginal in May 2011. His most recent coronary angiogram August 2013 showed a patent obtuse marginal stent and no obstructive disease. A Lexiscan SPECT done March 2017 for preoperative evaluation prior to surgery showed a small nonreversible defect in the inferior and inferolateral gomez. 14 point review of systems negative other than per HPI. Past Medical History Coronary artery disease Hypertension Dyslipidemia Hypothyroidism, history of Marnie's thyroiditis Peptic ulcer disease and colitis Gout History of nephrolithiasis Past Surgical History Lumbar spine surgery Bilateral inguinal hernia repair Left cataract surgery Family History Significant Family History: heart disease (father), cancer (mother) Social History Smoking Status: Never smoker Exam/Review of Systems Vital Signs Vitals Vital Signs Date Time Temp Pulse Resp B/P Pulse Ox O2 Delivery O2 Flow Rate FiO2 07/17/17 15:29 97.9 65 18 124/62 98 07/17/17 04:00 Room Air Exam Constitutional: alert, well developed Psych: nl mood/affect, no complaints Head: atraumatic, normocephalic Eyes: nl conjunctiva, nl lids ENMT: nl external ears & nose, nl nasal mucosa & septum Neck: non-tender, supple, No jvd Respiratory: clear to auscultation Cardiovascular: regular rate and rhythm Gastrointestinal: non-tender, soft Musculoskeletal: nl extremities to inspection Extremities: No clubbing, No cyanosis, No edema Neurological: nl mental status, nl speech Results Result Diagram: 07/17/1761807/17/17618 Results 24 hrs Laboratory Tests Test 07/16/17 19:30 07/17/17 06:19 07/17/17 11:11 White Blood Count 9.5 7.5 # Red Blood Count 4.52 L 3.90 L Hemoglobin 12.9 L 10.9 L Hematocrit 39.2 L 33.7 L Mean Corpuscular Volume 86.7 86.4 Mean Corpuscular Hemoglobin 28.5 L 27.9 L Mean Corpuscular Hemoglobin Concent 32.9 32.3 Red Cell Distribution Width 13.9 14.3 Platelet Count 299 253 Mean Platelet Volume 11.1 H 11.7 H Neutrophils % 71.0 59.1 Lymphocytes % 18.5 27.8 Monocytes % 7.2 7.9 Eosinophils % 2.4 4.0 Basophils % 0.4 0.7 Nucleated Red Blood Cells % 0.0 0.0 Neutrophils # 6.7 4.4 Lymphocytes # 1.8 2.1 Monocytes # 0.7 0.6 Eosinophils # 0.2 0.3 Basophils # 0.0 0.1 Nucleated Red Blood Cells # 0.0 0.0 Sodium Level 142 140 Potassium Level 3.8 3.5 Chloride Level 104 107 Carbon Dioxide Level 28 27 Anion Gap 14 10 Blood Urea Nitrogen 11 12 Creatinine 1.50 H 1.49 H Glucose Level 100 86 Calcium Level 9.3 8.6 Total Bilirubin 0.4 0.3 Direct Bilirubin 0.00 0.00 Indirect Bilirubin 0.4 0.3 Aspartate Amino Transf (AST/SGOT) 15 17 Alanine Aminotransferase (ALT/SGPT) 23 25 Alkaline Phosphatase 128 H 102 Troponin I < 0.012 < 0.012 < 0.012 Total Protein 7.3 6.3 # Albumin 3.7 3.2 L Globulin 3.60 H 3.10 Albumin/Globulin Ratio 1.02 1.03 Hemoglobin A1c 5.5 Phosphorus Level 3.5 Magnesium Level 1.9 Creatine Kinase 159 Creatine Kinase Index 0.5 Creatinine Kinase MB (Mass) 0.86 Triglycerides Level 155 H Cholesterol Level 125 LDL Cholesterol, Calculated 71 HDL Cholesterol 23 L Cholesterol/HDL Ratio 5.4 Thyroid Stimulating Hormone (TSH) 5.400 H Medications Medications Current Medications Lorazepam (Ativan) 1 mg Q3 PRN IV ANXIETY Last administered on 07/17/17 02:23 ; Admin Dose 1 MG; Start 07/17/17 at 02:09 Acetaminophen (Tylenol Tab) 650 mg Q6H PRN PO PAIN AND OR ELEVATED TEMP; Start 07/17/17 at 02:30 Gabapentin (Neurontin) 300 mg BID PO Last administered on 07/17/17 09:03; Admin Dose 300 MG; Start 07/17/17 at 09:00 Acetaminophen/ Hydrocodone Bitart ([place] (5/325)) 1 tab Q4H PRN PO PAIN LEVEL 4 -6; Start 07/17/17 at 02:37 Allopurinol (Zyloprim) 100 mg DAILY PO Last administered on 07/17/17 09:04; Admin Dose 100 MG; Start 07/17/17 at 09:00 Alprazolam (Xanax) 0.5 mg Q6H PRN PO ANXIETY; Start 07/17/17 at 03:00 Aspirin (Halfprin) 81 mg DAILY PO Last administered on 07/17/17 09:45; Admin Dose 81 MG; Start 07/17/17 at 09:00 Atenolol (Tenormin) 25 mg DAILY PO ; Start 07/17/17 at 09:00 Atorvastatin Calcium (Lipitor) 80 mg HS PO ; Start 07/17/17 at 21:00 Carisoprodol (Soma) 350 mg DAILY PO Last administered on 07/17/17 09:04; Admin Dose 350 MG; Start 07/17/17 at 09:00 Clopidogrel Bisulfate (plaVIX) 75 mg DAILY PO Last administered on 07/17/17 09 :04; Admin Dose 75 MG; Start 07/17/17 at 09:00 Levothyroxine Sodium (Synthroid) 125 mcg DAILY@06 PO Last administered on 06:40; Admin Dose 125 MCG; Start 07/17/17 at 06:00 Pantoprazole (Protonix Tab) 40 mg DAILY@06 PO Last administered on 07/17/17 06 :40; Admin Dose 40 MG; Start 07/17/17 at 06:00 Trazodone HCl (Desyrel) 150 mg HS PO ; Start 07/17/17 at 21:00 SERAFIN HAAS MD Jul 17, 2017 16:15
[2017-07-17] MEDS: SOD CHLORIDE 0.9% 1,000 ML IV SCH (16:40)
[2017-07-17] MEDS: traZODone 50 MG TAB PO SCH (22:06)
[2017-07-17] MEDS: ATORVASTATIN 80 MG TAB PO SCH (22:07)
[2017-07-18] VITALS (11 sets, daily range): BP systolic 129–158; BP diastolic 61–77; PULSE 57–81; RESP 18
[2017-07-18] MEDS: SOD CHLORIDE 0.9% 1,000 ML IV SCH ×4 (00:30→20:44)
[2017-07-18] MEDS: LEVOTHYROXINE 125 MCG TAB PO SCH (05:55)
[2017-07-18] MEDS: PANTOPRAZOLE (EC) 40 MG TAB PO SCH (05:55)
[2017-07-18 08:41] LABS: CALCIUM 8.1 mg/dl (8.4-10.2); CREATININE 1.33 mg/dl (0.61-1.24); POTASSIUM 3.4 mmol/L (3.5-5.1)
[2017-07-18] MEDS: ATENOLOL 25 MG TAB PO SCH (09:00)
[2017-07-18] MEDS: ALLOPURINOL 100 MG TAB PO SCH (09:19)
[2017-07-18] MEDS: CARISOPRODOL 350 MG TAB PO SCH (09:19)
[2017-07-18] MEDS: ASPIRIN (EC) 81 MG TAB PO SCH (09:19)
[2017-07-18] MEDS: GABAPENTIN 300 MG CAP PO SCH ×2 (09:19→20:43)
[2017-07-18] MEDS: CLOPIDOGREL 75 MG TAB PO SCH (09:19)
[2017-07-18] MEDS ORDERED: POTASSIUM CHLORIDE (SR) 20 MEQ TAB PO STA (09:32)
[2017-07-18] MEDS ORDERED: HYDROmorphONE 1 MG/ML SYG IV STA (09:47)
--- NOTE | 2017-07-18 11:05 | PN ---
Date/Time of Note Date/Time of Note DATE: 07/18/17 TIME: 10:51 Assessment/Plan VTE Prophylaxis VTE Prophylaxis Intervention: heparin Lines/Catheters IV Catheter Type (from Nrsg): Saline Lock Assessment/Plan Assessment/Plan 1. Chest pain- rule out ACS - Patient has cath scheduled for with Dr. Montes but pain has been too severe and presented to ED - Cardiology on board and recommendations appreciated. Awaiting plans for cardiac cath - Pain relief with Dilaudid x1. Will ordered PRN for relief 2. h/o CAD - PCI to OM2 05/2011, cath 08/2013 patent OM stent and nonobstructive disease - Lexiscan SPECT 03/2017 small nonreversible defect in inferior and inferolateral gomez 3. Acute kidney injury - improving on IV NSS - Will continue to monitor 4. Hypertension - stable. continue monitoring - Adjust medications as needed 5. Dyslipidemia - on statin 6. 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 Peptic ulcer disease and colitis Subjective 24 Hr Interval Summary Free Text/Dictation Patient c/o left sided chest pain, sharp in nature and reproducible on palpation. He has associated nausea and shortness of breath. Relief with Dilaudid. Denies any other symptoms and no acute overnight events. Exam/Review of Systems Vital Signs Vitals Vital Signs Date Time Temp Pulse Resp B/P Pulse Ox O2 Delivery O2 Flow Rate FiO2 07/18/17 08:13 57 07/18/17 07:56 97.9 18 129/61 96 07/17/17 04:00 Room Air Intake and Output 07/17/17 07/17/17 07/18/17 15:00 23:00 07:00 Intake Total 800 ml 920 ml Output Total 400 ml 520 ml Balance 400 ml 400 ml Exam General: NAD, awake and alert Chest: tenderness upon palpation left chest CVS: regular rate and rhythm. no murmurs Lungs: CTA b/l. no wheezes or crackles Abd: soft, NT, ND +BS. no rebound or guarding Ext: pulses intact. no clubbing or cyanosis Results Result Diagram: 07/17/17 0619 07/18/17 0700 Results 24 hrs Laboratory Tests Test 07/17/17 11:11 07/18/17 07:00 Troponin I < 0.012 Sodium Level 137 Potassium Level 3.4 L Chloride Level 108 Carbon Dioxide Level 26 Anion Gap 6 L Blood Urea Nitrogen 13 Creatinine 1.33 H Glucose Level 94 Calcium Level 8.1 L Medications Medications Current Medications Lorazepam (Ativan) 1 mg Q3 PRN IV ANXIETY Last administered on 07/17/17 02:23 ; Admin Dose 1 MG; Start 07/17/17 at 02:09 Acetaminophen (Tylenol Tab) 650 mg Q6H PRN PO PAIN AND OR ELEVATED TEMP; Start 07/17/17 at 02:30 Gabapentin (Neurontin) 300 mg BID PO Last administered on 07/18/17 09:19; Admin Dose 300 MG; Start 07/17/17 at 09:00 Acetaminophen/ Hydrocodone Bitart ([place] (5/325)) 1 tab Q4H PRN PO PAIN LEVEL 4 -6; Start 07/17/17 at 02:37 Allopurinol (Zyloprim) 100 mg DAILY PO Last administered on 07/18/17 09:19; Admin Dose 100 MG; Start 07/17/17 at 09:00 Alprazolam (Xanax) 0.5 mg Q6H PRN PO ANXIETY; Start 07/17/17 at 03:00 Aspirin (Halfprin) 81 mg DAILY PO Last administered on 07/18/17 09:19; Admin Dose 81 MG; Start 07/17/17 at 09:00 Atenolol (Tenormin) 25 mg DAILY PO ; Start 07/17/17 at 09:00 Atorvastatin Calcium (Lipitor) 80 mg HS PO Last administered on 07/17/17 22:07 ; Admin Dose 80 MG; Start 07/17/17 at 21:00 Carisoprodol (Soma) 350 mg DAILY PO Last administered on 07/18/17 09:19; Admin Dose 350 MG; Start 07/17/17 at 09:00 Clopidogrel Bisulfate (plaVIX) 75 mg DAILY PO Last administered on 07/18/17 09 :19; Admin Dose 75 MG; Start 07/17/17 at 09:00 Levothyroxine Sodium (Synthroid) 125 mcg DAILY@06 PO Last administered on 05:55; Admin Dose 125 MCG; Start 07/17/17 at 06:00 Pantoprazole (Protonix Tab) 40 mg DAILY@06 PO Last administered on 07/18/17 05 :55; Admin Dose 40 MG; Start 07/17/17 at 06:00 Trazodone HCl 150 mg 150 mg HS PO Last administered on 07/17/17 22:06; Admin Dose 150 MG; Start 07/17/17 at 21:00 Sodium Chloride (NS) 1,000 ml @ 125 mls/hr Q8H IV Last administered on 07:35; Admin Dose 125 MLS/HR; Start 07/17/17 at 16:30 MAYNOR FLYNN MD Jul 18, 2017 11:04
[2017-07-18 11:38] LABS: ADD UMIC YES; UR ASCORBIC ACID NEGATIVE (NEGATIVE); UR BILIRUBIN (Dip) NEGATIVE (NEGATIVE); UR BLOOD (Dip) 3+ mg/dL (NEGATIVE); UR CLARITY CLEAR (CLEAR); UR COLOR YELLOW (YELLOW); UR GLUCOSE (Dip) NEGATIVE (NEGATIVE); UR KETONES (Dip) NEGATIVE (NEGATIVE); UR LEUKOCYTE ESTERASE (Dip) 3+ Leu/ul (NEGATIVE); UR MUCUS FEW /HPF (NONE SEEN); UR NITRITE (Dip) NEGATIVE (NEGATIVE); UR RBC 22 /HPF (0-5); UR SPECIFIC GRAVITY (Dip) 1.006 (1.003-1.030); UR SQUAMOUS EPITHELIAL CELL MODERATE /HPF (FEW); UR TOTAL PROTEIN (Dip) NEGATIVE (NEGATIVE); UR UROBILINOGEN (Dip) NEGATIVE (NEGATIVE)
--- NOTE | 2017-07-18 14:52 | PN ---
DATE: 07/18/2017 SUBJECTIVE DATA: Patient is complaining of chest pain. No other events noted. No hemoptysis, hematemesis, hematochezia. OBJECTIVE DATA: VITAL SIGNS: Blood pressure is 120/61, respirations 18, pulse 59, temperature 97.9. HEENT: Head is normocephalic. NECK: Supple. HEART: Regular rate. LUNGS: Diminished breath sounds at the base. ABDOMEN: Soft, nontender to palpation. No rebound or guarding. EXTREMITIES: Negative for clubbing, cyanosis. No edema. DERMATOLOGIC: No rashes. MUSCULOSKELETAL: No joint effusions. NEUROLOGIC: No focal deficits. MEDICATIONS: Reviewed. LABORATORY AND DIAGNOSTIC DATA: Sodium 137, potassium 3.4, BUN 13, creatinine 1.33. White count 7.5, hemoglobin 10.9, hematocrit 30.7, platelet count 253. ASSESSMENT AND PLAN: 1. Chest pain, etiology is concerning for acute coronary syndrome. Plan is to continue current medical management. The patient is pending possible cardiac catheterization. Will defer to Cardiology. Continue aspirin and Plavix and atorvastatin. We will give pain medications. 2. Hypertension. Continue current blood pressure regimen. 3. Dyslipidemia. Continue statin therapy. 4. Nonoliguric acute kidney injury with unknown baseline creatinine. Etiology may be secondary to hemodynamics. Renal function is improving. Continue current treatment plan. Will check a urinalysis. Check urine electrolytes. 5. Hypothyroidism. Continue Synthroid. 6. History of peptic ulcer disease and colitis. 7. Anxiety disorder. Continue Xanax. 8. Neuropathy. Continue Neurontin. Dictated By: Ricardo Gamez DO /[email or web address] /Document#: [id number]
[2017-07-18] MEDS: HYDROmorphONE 1 MG/ML SYG IV PRN ×2 (15:23→20:52)
[2017-07-18] MEDS: ATORVASTATIN 80 MG TAB PO SCH (20:43)
[2017-07-18] MEDS: traZODone 50 MG TAB PO SCH (20:44)
--- NOTE | 2017-07-18 21:03 | CONS ---
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 Renal function improving. Detailed Summary Additional Comments 14 point review of systems without changes. Exam/Review of Systems Vital Signs Vitals Vital Signs Date Time Temp Pulse Resp B/P Pulse Ox O2 Delivery O2 Flow Rate FiO2 07/18/17 19:41 97.6 74 18 134/69 97 07/17/17 04:00 Room Air Intake and Output 07/17/17 07/17/17 07/18/17 15:00 23:00 07:00 Intake Total 800 ml 920 ml Output Total 400 ml 520 ml Balance 400 ml 400 ml Exam Constitutional: alert, well developed Psych: nl mood/affect, no complaints Head: atraumatic, normocephalic Eyes: nl conjunctiva, nl lids ENMT: nl external ears & nose, nl nasal mucosa & septum Neck: non-tender, supple, No jvd Respiratory: clear to auscultation Cardiovascular: regular rate and rhythm Gastrointestinal: non-tender, soft Musculoskeletal: nl extremities to inspection Extremities: No clubbing, No cyanosis, No edema Neurological: nl mental status, nl speech Results Result Diagram: 07/17/17 0619 07/18/17 0700 Results 24 hrs Laboratory Tests Test 07/18/17 07:00 07/18/17 10:57 Sodium Level 137 Potassium Level 3.4 L Chloride Level 108 Carbon Dioxide Level 26 Anion Gap 6 L Blood Urea Nitrogen 13 Creatinine 1.33 H Glucose Level 94 Calcium Level 8.1 L Urine Color YELLOW Urine Clarity CLEAR Urine pH 6.0 Urine Specific [place] 1.006 Urine Ketones NEGATIVE Urine Nitrite NEGATIVE Urine Bilirubin NEGATIVE Urine Urobilinogen NEGATIVE Urine Leukocyte Esterase 3+ H Urine Microscopic RBC 22 H Urine Microscopic WBC 30 H Urine Squamous Epithelial Cells MODERATE Urine Mucus FEW A Urine Hemoglobin 3+ H Urine Random Creatinine 58.18 Urine Random Sodium 75 Urine Glucose NEGATIVE Urine Total Protein 24.0 H Medications Medications Current Medications Lorazepam (Ativan) 1 mg Q3 PRN IV ANXIETY Last administered on 07/17/17 02:23 ; Admin Dose 1 MG; Start 07/17/17 at 02:09 Acetaminophen (Tylenol Tab) 650 mg Q6H PRN PO PAIN AND OR ELEVATED TEMP; Start 07/17/17 at 02:30 Gabapentin (Neurontin) 300 mg BID PO Last administered on 07/18/17 20:43; Admin Dose 300 MG; Start 07/17/17 at 09:00 Acetaminophen/ Hydrocodone Bitart ([place] (5/325)) 1 tab Q4H PRN PO PAIN LEVEL 4 -6; Start 07/17/17 at 02:37 Allopurinol (Zyloprim) 100 mg DAILY PO Last administered on 07/18/17 09:19; Admin Dose 100 MG; Start 07/17/17 at 09:00 Alprazolam (Xanax) 0.5 mg Q6H PRN PO ANXIETY; Start 07/17/17 at 03:00 Aspirin (Halfprin) 81 mg DAILY PO Last administered on 07/18/17 09:19; Admin Dose 81 MG; Start 07/17/17 at 09:00 Atenolol (Tenormin) 25 mg DAILY PO ; Start 07/17/17 at 09:00 Atorvastatin Calcium (Lipitor) 80 mg HS PO Last administered on 07/18/17 20:43 ; Admin Dose 80 MG; Start 07/17/17 at 21:00 Carisoprodol (Soma) 350 mg DAILY PO Last administered on 07/18/17 09:19; Admin Dose 350 MG; Start 07/17/17 at 09:00 Clopidogrel Bisulfate (plaVIX) 75 mg DAILY PO Last administered on 07/18/17 09 :19; Admin Dose 75 MG; Start 07/17/17 at 09:00 Levothyroxine Sodium (Synthroid) 125 mcg DAILY@06 PO Last administered on 05:55; Admin Dose 125 MCG; Start 07/17/17 at 06:00 Pantoprazole (Protonix Tab) 40 mg DAILY@06 PO Last administered on 07/18/17 05 :55; Admin Dose 40 MG; Start 07/17/17 at 06:00 Trazodone HCl 150 mg 150 mg HS PO Last administered on 07/18/17 20:44; Admin Dose 150 MG; Start 07/17/17 at 21:00 Sodium Chloride (NS) 1,000 ml @ 125 mls/hr Q8H IV Last administered on 20:44; Admin Dose 125 MLS/HR; Start 07/17/17 at 16:30 Hydromorphone HCl (Dilaudid) 0.5 mg Q4H PRN IV SEVERE PAIN LEVEL 7-10 Last administered on 07/18/17 20:52; Admin Dose 0.5 MG; Start 07/18/17 at 12:00 SERAFIN HAAS MD Jul 18, 2017 21:03
[2017-07-19] VITALS (13 sets, daily range): BP systolic 145–174; BP diastolic 74–90; PULSE 48–69; RESP 18–19
[2017-07-19] MEDS: PANTOPRAZOLE (EC) 40 MG TAB PO SCH (06:17)
[2017-07-19] MEDS: LEVOTHYROXINE 125 MCG TAB PO SCH (06:17)
[2017-07-19] MEDS: ALLOPURINOL 100 MG TAB PO SCH (07:59)
[2017-07-19] MEDS: ASPIRIN (EC) 81 MG TAB PO SCH (07:59)
[2017-07-19] MEDS: GABAPENTIN 300 MG CAP PO SCH ×2 (07:59→20:43)
[2017-07-19] MEDS: CARISOPRODOL 350 MG TAB PO SCH (07:59)
[2017-07-19] MEDS: ATENOLOL 25 MG TAB PO SCH (08:00)
[2017-07-19] MEDS: SOD CHLORIDE 0.9% 1,000 ML IV SCH (08:00)
[2017-07-19] MEDS: CLOPIDOGREL 75 MG TAB PO SCH (08:00)
[2017-07-19 08:13] LABS: BASOPHILS % 0.5 % (0.0-2.0); EOSINOPHILS # 0.4 10^3/ul (0.0-0.5); EOSINOPHILS % 5.2 % (0.0-7.0); LYMPHOCYTES # 1.7 10^3/ul (0.8-2.9); MEAN CORPUSCULAR HEMOGLOBIN 27.8 pg (29.0-33.0); MEAN CORPUSCULAR HGB CONC 31.4 g/dl (32.0-37.0); MEAN CORPUSCULAR VOLUME 88.4 fl (82.0-101.0); MEAN PLATELET VOLUME 11.5 fl (7.4-10.4); MONOCYTE # 0.6 10^3/ul (0.3-0.9); MONOCYTES % 8.3 % (0.0-11.0); NEUTROPHIL # 4.8 10^3/ul (1.6-7.5); NEUTROPHILS % 63.5 % (39.0-77.0); PLATELET COUNT 260 10^3/UL (140-415); RED BLOOD COUNT 3.96 10^6/ul (4.70-6.10); RED CELL DISTRIBUTION WIDTH 14.1 % (11.5-14.5); WHITE BLOOD COUNT 7.6 10^3/ul (4.8-10.8)
[2017-07-19 08:31] LABS: CALCIUM 8.7 mg/dl (8.4-10.2); CREATININE 1.16 mg/dl (0.61-1.24); PHOSPHORUS 3.1 mg/dl (2.5-4.9); POTASSIUM 4.5 mmol/L (3.5-5.1)
[2017-07-19] MEDS: HYDROmorphONE 1 MG/ML SYG IV PRN ×2 (11:43→22:01)
--- NOTE | 2017-07-19 12:26 | PN ---
DATE: 07/19/2017 SUBJECTIVE DATA: Patient is stable. No events overnight. No chest pain. No other events noted. No hemoptysis, hematemesis, hematochezia. OBJECTIVE DATA: VITAL SIGNS: Blood pressure 145/78, pulse 65, temperature 97.9. HEENT: Head is normocephalic. NECK: Supple. HEART: Regular rate. LUNGS: Diminished breath sounds at the base. ABDOMEN: Soft, nontender to palpation. No rebound or guarding. EXTREMITIES: Negative for clubbing, cyanosis. No edema. DERMATOLOGIC: Clean. No rashes. MUSCULOSKELETAL: No joint effusion. NEUROLOGIC: No change in exam. MEDICATIONS: Reviewed. LABORATORY AND DIAGNOSTIC DATA: Shows BUN 12, creatinine 1.16, sodium 139. White count 10.6, hemoglobin 11.0. Platelet count is 260,000. ASSESSMENT AND PLAN: 1. Chest pain. Etiology is concerning for possible acute coronary syndrome. Continue medical management. Follow up with Cardiology. 2. Hypertension in part due to intravenous volume expansion. We will decrease rate of intravenous fluids. Continue current blood pressure regimen. 3. Nonoliguric acute kidney injury with unknown baseline creatinine. Etiology is likely secondary to hemodynamics. Renal function has improved with intravenously. Urinalysis was reviewed, no active sediment. Continue to monitor. 4. Dyslipidemia. Continue statin therapy. 5. Hypothyroidism. Continue Synthroid. 6. History of peptic ulcer disease with colitis. 7. Anxiety disorder. Continue Xanax. 8. Neuropathy. Continue Neurontin. Dictated By: Ricardo Gamez DO /[email or web address]/[email or web address] /Document#: [id number]
[2017-07-19 13:46] LABS: MICROALBUMIN 2.6 mg/dL
[2017-07-19] MEDS ORDERED: DOCUSATE SODIUM 100 MG CAP PO ONE (13:46)
[2017-07-19] MEDS ORDERED: DOCUSATE SODIUM 100 MG CAP PO PRN (14:00)
--- NOTE | 2017-07-19 14:52 | PN ---
Date/Time of Note Date/Time of Note DATE: 07/19/17 TIME: 14:51 Assessment/Plan VTE Prophylaxis VTE Prophylaxis Intervention: heparin Lines/Catheters IV Catheter Type (from [facility]): [facility] Urinary Cath still in place: No Assessment/Plan Assessment/Plan 1. Chest pain- rule out ACS - Patient has cath scheduled for with Dr. Montes - Cardiology on board and recommendations appreciated - Pain relief with Dilaudid 2. h/o CAD - PCI to OM2 05/2011, cath 08/2013 patent OM stent and nonobstructive disease - Lexiscan SPECT 03/2017 small nonreversible defect in inferior and inferolateral gomez 3. Acute kidney injury - improving on IV NSS and will continue IVF in anticipation of cardiac cath - Will continue to monitor 4. Hypertension - stable. continue monitoring - Adjust medications as needed 5. Dyslipidemia - on statin 6. 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 Peptic ulcer disease and colitis 8. Nephrolithiasis - Has stent in place with no issues at this moment. Was supposed to be removed on Tuesday and outpt Urologist aware he is currently hospitalized. Will be ok to follow up after discharge Subjective 24 Hr Interval Summary Free Text/Dictation Patient still experiencing left sided chest pain but improves with pain medications. Also has not had a BM in 2 days. Denies any acute issues or overnight events. Exam/Review of Systems Vital Signs Vitals Vital Signs Date Time Temp Pulse Resp B/P Pulse Ox O2 Delivery O2 Flow Rate FiO2 07/19/17 12:10 60 07/19/17 11:40 98.6 18 152/76 96 07/17/17 04:00 Room Air Intake and Output 07/18/17 07/18/17 07/19/17 15:00 23:00 07:00 Intake Total 450 ml 1600 ml 1100 ml Output Total 100 ml 1275 ml 900 ml Balance 350 ml 325 ml 200 ml Exam General: NAD, awake and alert Chest: tenderness upon palpation left chest CVS: regular rate and rhythm. no murmurs Lungs: CTA b/l. no wheezes or crackles Abd: soft, NT, ND +BS. no rebound or guarding Ext: pulses intact. no clubbing or cyanosis Results Result Diagram: 07/19/17 0714 07/19/17 0740 Results 24 hrs Laboratory Tests Test 07/19/17 07:14 07/19/17 07:40 White Blood Count 7.6 Red Blood Count 3.96 L Hemoglobin 11.0 L Hematocrit 35.0 L Mean Corpuscular Volume 88.4 Mean Corpuscular Hemoglobin 27.8 L Mean Corpuscular Hemoglobin Concent 31.4 L Red Cell Distribution Width 14.1 Platelet Count 260 Mean Platelet Volume 11.5 H Neutrophils % 63.5 Lymphocytes % 22.0 Monocytes % 8.3 Eosinophils % 5.2 Basophils % 0.5 Nucleated Red Blood Cells % 0.0 Neutrophils # 4.8 Lymphocytes # 1.7 Monocytes # 0.6 Eosinophils # 0.4 Basophils # 0.0 Nucleated Red Blood Cells # 0.0 Sodium Level 139 Potassium Level 4.5 Chloride Level 107 Carbon Dioxide Level 29 Anion Gap 8 Blood Urea Nitrogen 12 Creatinine 1.16 Glucose Level 83 Calcium Level 8.7 Phosphorus Level 3.1 Magnesium Level 2.0 Medications Medications Current Medications Lorazepam (Ativan) 1 mg Q3 PRN IV ANXIETY Last administered on 07/17/17 02:23 ; Admin Dose 1 MG; Start 07/17/17 at 02:09 Acetaminophen (Tylenol Tab) 650 mg Q6H PRN PO PAIN AND OR ELEVATED TEMP; Start 07/17/17 at 02:30 Gabapentin (Neurontin) 300 mg BID PO Last administered on 07/19/17 07:59; Admin Dose 300 MG; Start 07/17/17 at 09:00 Acetaminophen/ Hydrocodone Bitart ([place] (5/325)) 1 tab Q4H PRN PO PAIN LEVEL 4 -6; Start 07/17/17 at 02:37 Allopurinol (Zyloprim) 100 mg DAILY PO Last administered on 07/19/17 07:59; Admin Dose 100 MG; Start 07/17/17 at 09:00 Alprazolam (Xanax) 0.5 mg Q6H PRN PO ANXIETY; Start 07/17/17 at 03:00 Aspirin (Halfprin) 81 mg DAILY PO Last administered on 07/19/17 07:59; Admin Dose 81 MG; Start 07/17/17 at 09:00 Atenolol (Tenormin) 25 mg DAILY PO Last administered on 07/19/17 08:00; Admin Dose 25 MG; Start 07/17/17 at 09:00 Atorvastatin Calcium (Lipitor) 80 mg HS PO Last administered on 07/18/17 20:43 ; Admin Dose 80 MG; Start 07/17/17 at 21:00 Carisoprodol (Soma) 350 mg DAILY PO Last administered on 07/19/17 07:59; Admin Dose 350 MG; Start 07/17/17 at 09:00 Clopidogrel Bisulfate (plaVIX) 75 mg DAILY PO Last administered on 07/19/17 08 :00; Admin Dose 75 MG; Start 07/17/17 at 09:00 Levothyroxine Sodium (Synthroid) 125 mcg DAILY@06 PO Last administered on 06:17; Admin Dose 125 MCG; Start 07/17/17 at 06:00 Pantoprazole (Protonix Tab) 40 mg DAILY@06 PO Last administered on 07/19/17 06 :17; Admin Dose 40 MG; Start 07/17/17 at 06:00 Trazodone HCl 150 mg 150 mg HS PO Last administered on 07/18/17 20:44; Admin Dose 150 MG; Start 07/17/17 at 21:00 Sodium Chloride (NS) 1,000 ml @ 50 mls/hr Q20H IV Last administered on 08:00; Admin Dose 125 MLS/HR; Start 07/17/17 at 16:30 Hydromorphone HCl (Dilaudid) 0.5 mg Q4H PRN IV SEVERE PAIN LEVEL 7-10 Last administered on 07/19/17 11:43; Admin Dose 0.5 MG; Start 07/18/17 at 12:00 Docusate Sodium (Colace) 100 mg BID PRN PO CONSTIPATION Last administered on 13:52; Admin Dose 100 MG; Start 07/19/17 at 14:00 MAYNOR FLYNN MD Jul 19, 2017 14:52
[2017-07-19] MEDS ORDERED: SENNA/DOCUSATE NA (8.6MG/50MG) TAB PO PRN (15:30)
[2017-07-19] MEDS: hydrALAzine 20 MG INJ IV PRN (17:25)
--- NOTE | 2017-07-19 17:42 | CONS ---
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 Peptic ulcer disease and colitis Iodine contrast allergy - will need pre-medication prior to coronary angiography Recommendations: -add amlodipine 5mg daily -continue atenolol 25mg daily, as heart rate can tolerate -continue aspirin 81mg and clopidogrel 75mg daily -continue atorvastatin 80mg daily -coronary angiography scheduled for (07/21/2017 at 8AM) - pre- medication with prednisone 50mg 13 hours, 7 hours, and 1 hour before and Benadryl 50mg IV 1 hour before Problems: Consultation Date/Type/Reason Admit Date/Time Jul 17, 2017 at 00:21 Type of Consultation: Cardiology 24 HR Interval Summary Free Text/Dictation Still with intermittent chest pain, though overall improved. Renal function normalized. Detailed Summary Additional Comments 14 point review of systems without changes. Exam/Review of Systems Vital Signs Vitals Vital Signs Date Time Temp Pulse Resp B/P Pulse Ox O2 Delivery O2 Flow Rate FiO2 07/19/17 16:04 59 07/19/17 15:50 98.3 19 162/81 99 07/17/17 04:00 Room Air Intake and Output 07/18/17 07/18/17 07/19/17 15:00 23:00 07:00 Intake Total 450 ml 1600 ml 1100 ml Output Total 100 ml 1275 ml 900 ml Balance 350 ml 325 ml 200 ml Exam Constitutional: alert, well developed Psych: nl mood/affect, no complaints Head: atraumatic, normocephalic Eyes: nl conjunctiva, nl lids ENMT: nl external ears & nose, nl nasal mucosa & septum Neck: non-tender, supple, No jvd Respiratory: clear to auscultation Cardiovascular: regular rate and rhythm Gastrointestinal: non-tender, soft Musculoskeletal: nl extremities to inspection Extremities: No clubbing, No cyanosis, No edema Neurological: nl mental status, nl speech Results Result Diagram: 07/19/17 0714 07/19/17 0740 Results 24 hrs Laboratory Tests Test 07/19/17 07:14 07/19/17 07:40 White Blood Count 7.6 Red Blood Count 3.96 L Hemoglobin 11.0 L Hematocrit 35.0 L Mean Corpuscular Volume 88.4 Mean Corpuscular Hemoglobin 27.8 L Mean Corpuscular Hemoglobin Concent 31.4 L Red Cell Distribution Width 14.1 Platelet Count 260 Mean Platelet Volume 11.5 H Neutrophils % 63.5 Lymphocytes % 22.0 Monocytes % 8.3 Eosinophils % 5.2 Basophils % 0.5 Nucleated Red Blood Cells % 0.0 Neutrophils # 4.8 Lymphocytes # 1.7 Monocytes # 0.6 Eosinophils # 0.4 Basophils # 0.0 Nucleated Red Blood Cells # 0.0 Sodium Level 139 Potassium Level 4.5 Chloride Level 107 Carbon Dioxide Level 29 Anion Gap 8 Blood Urea Nitrogen 12 Creatinine 1.16 Glucose Level 83 Calcium Level 8.7 Phosphorus Level 3.1 Magnesium Level 2.0 Medications Medications Current Medications Lorazepam (Ativan) 1 mg Q3 PRN IV ANXIETY Last administered on 07/17/17 02:23 ; Admin Dose 1 MG; Start 07/17/17 at 02:09 Acetaminophen (Tylenol Tab) 650 mg Q6H PRN PO PAIN AND OR ELEVATED TEMP; Start 07/17/17 at 02:30 Gabapentin (Neurontin) 300 mg BID PO Last administered on 07/19/17 07:59; Admin Dose 300 MG; Start 07/17/17 at 09:00 Acetaminophen/ Hydrocodone Bitart ([place] (5/325)) 1 tab Q4H PRN PO PAIN LEVEL 4 -6; Start 07/17/17 at 02:37 Allopurinol (Zyloprim) 100 mg DAILY PO Last administered on 07/19/17 07:59; Admin Dose 100 MG; Start 07/17/17 at 09:00 Alprazolam (Xanax) 0.5 mg Q6H PRN PO ANXIETY; Start 07/17/17 at 03:00 Aspirin (Halfprin) 81 mg DAILY PO Last administered on 07/19/17 07:59; Admin Dose 81 MG; Start 07/17/17 at 09:00 Atenolol (Tenormin) 25 mg DAILY PO Last administered on 07/19/17 08:00; Admin Dose 25 MG; Start 07/17/17 at 09:00 Atorvastatin Calcium (Lipitor) 80 mg HS PO Last administered on 07/18/17 20:43 ; Admin Dose 80 MG; Start 07/17/17 at 21:00 Carisoprodol (Soma) 350 mg DAILY PO Last administered on 07/19/17 07:59; Admin Dose 350 MG; Start 07/17/17 at 09:00 Clopidogrel Bisulfate (plaVIX) 75 mg DAILY PO Last administered on 07/19/17 08 :00; Admin Dose 75 MG; Start 07/17/17 at 09:00 Levothyroxine Sodium (Synthroid) 125 mcg DAILY@06 PO Last administered on 06:17; Admin Dose 125 MCG; Start 07/17/17 at 06:00 Pantoprazole (Protonix Tab) 40 mg DAILY@06 PO Last administered on 07/19/17 06 :17; Admin Dose 40 MG; Start 07/17/17 at 06:00 Trazodone HCl 150 mg 150 mg HS PO Last administered on 07/18/17 20:44; Admin Dose 150 MG; Start 07/17/17 at 21:00 Sodium Chloride (NS) 1,000 ml @ 50 mls/hr Q20H IV Last administered on 08:00; Admin Dose 125 MLS/HR; Start 07/17/17 at 16:30 Hydromorphone HCl (Dilaudid) 0.5 mg Q4H PRN IV SEVERE PAIN LEVEL 7-10 Last administered on 07/19/17 11:43; Admin Dose 0.5 MG; Start 07/18/17 at 12:00 Docusate Sodium (Colace) 100 mg BID PRN PO CONSTIPATION Last administered on 13:52; Admin Dose 100 MG; Start 07/19/17 at 14:00 Senna/Docusate Sodium (Senokot-S) 1 tab DAILY PRN PO CONSTIPATION; Start at 15:30 Hydralazine HCl (Apresoline) 10 mg Q6H PRN IV ELEVATED BLOOD PRESSURE Last administered on 07/19/17 17:25; Admin Dose 10 MG; Start 07/19/17 at 16:30 SERAFIN HAAS MD Jul 19, 2017 17:42
[2017-07-19] MEDS: AMLODIPINE 5 MG TAB PO SCH (18:38)
[2017-07-19] MEDS: ATORVASTATIN 80 MG TAB PO SCH (20:43)
[2017-07-19] MEDS: traZODone 50 MG TAB PO SCH (20:44)
[2017-07-20] VITALS (12 sets, daily range): BP systolic 97–139; BP diastolic 55–68; PULSE 54–70; RESP 16–18
[2017-07-20] MEDS: LORAZEPAM 2 MG INJ IV PRN ×2 (00:38→21:01)
[2017-07-20] MEDS: PANTOPRAZOLE (EC) 40 MG TAB PO SCH (05:37)
[2017-07-20] MEDS: LEVOTHYROXINE 125 MCG TAB PO SCH (05:37)
[2017-07-20] MEDS: SOD CHLORIDE 0.9% 1,000 ML IV SCH (05:39)
[2017-07-20 07:39] LABS: BASOPHILS % 0.4 % (0.0-2.0); EOSINOPHILS # 0.5 10^3/ul (0.0-0.5); EOSINOPHILS % 5.9 % (0.0-7.0); HEMATOCRIT 33.9 % (42.0-52.0); HEMOGLOBIN 10.7 g/dl (14.0-18.0); LYMPHOCYTES % 26.3 % (15.0-51.0); MEAN CORPUSCULAR HEMOGLOBIN 27.7 pg (29.0-33.0); MEAN CORPUSCULAR HGB CONC 31.6 g/dl (32.0-37.0); MEAN CORPUSCULAR VOLUME 87.8 fl (82.0-101.0); MEAN PLATELET VOLUME 11.1 fl (7.4-10.4); MONOCYTE # 0.6 10^3/ul (0.3-0.9); MONOCYTES % 8.3 % (0.0-11.0); NEUTROPHIL # 4.4 10^3/ul (1.6-7.5); NEUTROPHILS % 58.4 % (39.0-77.0); PLATELET COUNT 258 10^3/UL (140-415); RED BLOOD COUNT 3.86 10^6/ul (4.70-6.10); RED CELL DISTRIBUTION WIDTH 14.6 % (11.5-14.5); WHITE BLOOD COUNT 7.6 10^3/ul (4.8-10.8)
[2017-07-20 08:03] LABS: ALBUMIN 2.8 g/dl (3.3-4.9); CALCIUM 8.2 mg/dl (8.4-10.2); CREATININE 1.25 mg/dl (0.61-1.24); MAGNESIUM 1.9 mg/dl (1.7-2.5); PHOSPHORUS 3.5 mg/dl (2.5-4.9); POTASSIUM 4.3 mmol/L (3.5-5.1)
[2017-07-20] MEDS: CLOPIDOGREL 75 MG TAB PO SCH (09:07)
[2017-07-20] MEDS: CARISOPRODOL 350 MG TAB PO SCH (09:07)
[2017-07-20] MEDS: ALLOPURINOL 100 MG TAB PO SCH (09:08)
[2017-07-20] MEDS: AMLODIPINE 5 MG TAB PO SCH (09:08)
[2017-07-20] MEDS: GABAPENTIN 300 MG CAP PO SCH ×2 (09:09→20:30)
[2017-07-20] MEDS: ATENOLOL 25 MG TAB PO SCH (09:09)
[2017-07-20] MEDS: ASPIRIN (EC) 81 MG TAB PO SCH (09:09)
--- NOTE | 2017-07-20 10:37 | PN ---
DATE: 07/20/2017 SUBJECTIVE DATA: The patient is stable. Pending cardiac cath tomorrow. No other events noted. OBJECTIVE DATA: Blood pressure 132/63, pulse 54, respiration 18, temperature 98.0/ HEENT: Head is normocephalic. NECK: Supple. HEART: Regular rate. LUNGS: Show diminished breath sounds at the base. ABDOMEN: Soft, nontender to palpation. No rebound or guarding. EXTREMITIES: Negative for clubbing, cyanosis. No edema. DERMATOLOGIC: Clean. No rashes. MUSCULOSKELETAL: No joint effusion. NEUROLOGIC: No change in exam. MEDICATIONS: Reviewed. LABORATORY AND DIAGNOSTIC DATA: Shows sodium 139, BUN 15, creatinine 1.25. White count 10.6, hemoglobin 10.7 and platelet count 258. ASSESSMENT AND PLAN: 1. Nonoliguric acute kidney injury on top of chronic kidney disease. Per patient, he says he has underlying renal dysfunction, chronic kidney disease, but does not know what his baseline creatinine or estimated glomerular filtration rate is. A component of his acute kidney injury was secondary to hemodynamics, which has improved. Renal function appears to be stabilizing. At this point, we will continue to monitor closely. The patient is at moderate risk for contrast-associated nephropathy. Would continue intravenous hydration prior to cardiac catheterization. Otherwise, continue current treatment plan. 2. Hypertension, improving. Continue current blood pressure regimen. Please note, that intravascular volume expansion is a contributing factor. 3. Chest pain. Continue medical management. Pending cardiac catheterization in the morning . 4. Dyslipidemia. Continue statin therapy. 5. Hypothyroidism. Continue Synthroid. 6. History of peptic ulcer disease. 7. Anxiety disorder. Continue Xanax. 8. Neuropathy. Continue Neurontin. Dictated By: Ricardo Gamez DO /[email or web address]/leatha /Document#: [id number]
--- NOTE | 2017-07-20 14:41 | CONS ---
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 Peptic ulcer disease and colitis Iodine contrast allergy - will need pre-medication prior to coronary angiography Recommendations: -continue amlodipine 5mg and atenolol 25mg daily -continue aspirin 81mg and clopidogrel 75mg daily -continue atorvastatin 80mg daily -coronary angiography scheduled for (07/21/2017 at 8AM) - pre- medication with prednisone 50mg 13 hours, 7 hours, and 1 hour before and Benadryl 50mg IV 1 hour before Problems: Consultation Date/Type/Reason Admit Date/Time Jul 17, 2017 at 00:21 Type of Consultation: Cardiology 24 HR Interval Summary Free Text/Dictation Intermittent chest pain. Detailed Summary Additional Comments 14 point review of systems without changes. Exam/Review of Systems Vital Signs Vitals Vital Signs Date Time Temp Pulse Resp B/P Pulse Ox O2 Delivery O2 Flow Rate FiO2 07/20/17 12:05 61 07/20/17 11:34 97.8 18 97/56 96 07/17/17 04:00 Room Air Intake and Output 07/19/17 07/19/17 07/20/17 15:00 23:00 07:00 Intake Total 1200 ml 2500 ml Output Total 1200 ml Balance 1200 ml 1300 ml Exam Constitutional: alert, well developed Psych: nl mood/affect, no complaints Head: atraumatic, normocephalic Eyes: nl conjunctiva, nl lids ENMT: nl external ears & nose, nl nasal mucosa & septum Neck: non-tender, supple, No jvd Respiratory: clear to auscultation Cardiovascular: regular rate and rhythm Gastrointestinal: non-tender, soft Musculoskeletal: nl extremities to inspection Extremities: No clubbing, No cyanosis, No edema Neurological: nl mental status, nl speech Results Result Diagram: 07/20/17 0707 07/20/17 0707 Results 24 hrs Laboratory Tests Test 07/20/17 07:07 White Blood Count 7.6 Red Blood Count 3.86 L Hemoglobin 10.7 L Hematocrit 33.9 L Mean Corpuscular Volume 87.8 Mean Corpuscular Hemoglobin 27.7 L Mean Corpuscular Hemoglobin Concent 31.6 L Red Cell Distribution Width 14.6 H Platelet Count 258 Mean Platelet Volume 11.1 H Neutrophils % 58.4 Lymphocytes % 26.3 Monocytes % 8.3 Eosinophils % 5.9 Basophils % 0.4 Nucleated Red Blood Cells % 0.0 Neutrophils # 4.4 Lymphocytes # 2.0 Monocytes # 0.6 Eosinophils # 0.5 Basophils # 0.0 Nucleated Red Blood Cells # 0.0 Sodium Level 139 Potassium Level 4.3 Chloride Level 106 Carbon Dioxide Level 30 Anion Gap 7 L Blood Urea Nitrogen 15 Creatinine 1.25 H Glucose Level 91 Calcium Level 8.2 L Phosphorus Level 3.5 Magnesium Level 1.9 Albumin 2.8 L Medications Medications Current Medications Lorazepam (Ativan) 1 mg Q3 PRN IV ANXIETY Last administered on 07/20/17 00:38 ; Admin Dose 1 MG; Start 07/17/17 at 02:09 Acetaminophen (Tylenol Tab) 650 mg Q6H PRN PO PAIN AND OR ELEVATED TEMP; Start 07/17/17 at 02:30 Gabapentin (Neurontin) 300 mg BID PO Last administered on 07/20/17 09:09; Admin Dose 300 MG; Start 07/17/17 at 09:00 Acetaminophen/ Hydrocodone Bitart ([place] (5/325)) 1 tab Q4H PRN PO PAIN LEVEL 4 -6; Start 07/17/17 at 02:37 Allopurinol (Zyloprim) 100 mg DAILY PO Last administered on 07/20/17 09:08; Admin Dose 100 MG; Start 07/17/17 at 09:00 Alprazolam (Xanax) 0.5 mg Q6H PRN PO ANXIETY; Start 07/17/17 at 03:00 Aspirin (Halfprin) 81 mg DAILY PO Last administered on 07/20/17 09:09; Admin Dose 81 MG; Start 07/17/17 at 09:00 Atenolol (Tenormin) 25 mg DAILY PO Last administered on 07/20/17 09:09; Admin Dose 25 MG; Start 07/17/17 at 09:00 Atorvastatin Calcium (Lipitor) 80 mg HS PO Last administered on 07/19/17 20:43 ; Admin Dose 80 MG; Start 07/17/17 at 21:00 Carisoprodol (Soma) 350 mg DAILY PO Last administered on 07/20/17 09:07; Admin Dose 350 MG; Start 07/17/17 at 09:00 Clopidogrel Bisulfate (plaVIX) 75 mg DAILY PO Last administered on 07/20/17 09 :07; Admin Dose 75 MG; Start 07/17/17 at 09:00 Levothyroxine Sodium (Synthroid) 125 mcg DAILY@06 PO Last administered on 05:37; Admin Dose 125 MCG; Start 07/17/17 at 06:00 Pantoprazole (Protonix Tab) 40 mg DAILY@06 PO Last administered on 07/20/17 05 :37; Admin Dose 40 MG; Start 07/17/17 at 06:00 Trazodone HCl 150 mg 150 mg HS PO Last administered on 07/19/17 20:44; Admin Dose 150 MG; Start 07/17/17 at 21:00 Sodium Chloride (NS) 1,000 ml @ 50 mls/hr Q20H IV Last administered on 05:39; Admin Dose 50 MLS/HR; Start 07/17/17 at 16:30 Hydromorphone HCl (Dilaudid) 0.5 mg Q4H PRN IV SEVERE PAIN LEVEL 7-10 Last administered on 07/19/17 22:01; Admin Dose 0.5 MG; Start 07/18/17 at 12:00 Docusate Sodium (Colace) 100 mg BID PRN PO CONSTIPATION Last administered on 13:52; Admin Dose 100 MG; Start 07/19/17 at 14:00 Senna/Docusate Sodium (Senokot-S) 1 tab DAILY PRN PO CONSTIPATION; Start at 15:30 Hydralazine HCl (Apresoline) 10 mg Q6H PRN IV ELEVATED BLOOD PRESSURE Last administered on 07/19/17 17:25; Admin Dose 10 MG; Start 07/19/17 at 16:30 Amlodipine Besylate (Norvasc) 5 mg DAILY PO Last administered on 07/20/17 09: 08; Admin Dose 5 MG; Start 07/19/17 at 18:00 Prednisone (Prednisone) 50 mg ONCE ONCE PO ; Start 07/20/17 at 18:00; Stop at 18:01 Prednisone (Prednisone) 50 mg ONCE ONCE PO ; Start 07/21/17 at 00:00; Stop at 00:01 Prednisone (Prednisone) 50 mg ONCE ONCE PO ; Start 07/21/17 at 06:00; Stop at 06:01 Diphenhydramine HCl (Benadryl) 50 mg ONCE ONCE IV ; Start 07/21/17 at 06:00; Stop 07/21/17 at 06:01 SERAFIN HAAS MD Jul 20, 2017 14:41
--- NOTE | 2017-07-20 15:39 | PN ---
Date/Time of Note Date/Time of Note DATE: 07/20/17 TIME: 15:36 Assessment/Plan VTE Prophylaxis VTE Prophylaxis Intervention: heparin Lines/Catheters IV [facility]ter [facility] (from [facility]): Peripheral IV Urinary Cath still in place: No Assessment/Plan Assessment/Plan 1. Acute coronary syndrome - Patient has cath scheduled for with Dr. Montes - Cardiology on board and recommendations appreciated - Pain relief with Dilaudid 2. h/o CAD - PCI to OM2 05/2011, cath 08/2013 patent OM stent and nonobstructive disease - Lexiscan SPECT 03/2017 small nonreversible defect in inferior and inferolateral gomez 3. Acute kidney injury - improving on IV NSS and will continue IVF in anticipation of cardiac cath - Will be given IV contrast prep today in anticipation for cath tmrw am - Will continue to monitor 4. Hypertension - stable. continue monitoring - Adjust medications as needed 5. Dyslipidemia - on statin 6. 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 Peptic ulcer disease and colitis 8. Nephrolithiasis - Has stent in place with no issues at this moment. Subjective 24 Hr Interval Summary Free Text/Dictation Patient resting comfortably and easily aroused. He states was experiencing chest pain last night but resolved with pain medications. no new issues this am and no acute overnight events. Exam/Review of Systems Vital Signs Vitals Vital Signs Date Time Temp Pulse Resp B/P Pulse Ox O2 Delivery O2 Flow Rate FiO2 07/20/17 12:05 61 07/20/17 11:34 97.8 18 97/56 96 07/17/17 04:00 Room Air Intake and Output 07/19/17 07/19/17 07/20/17 15:00 23:00 07:00 Intake Total 1200 ml 2500 ml Output Total 1200 ml Balance 1200 ml 1300 ml Exam General: NAD, awake and alert Chest: mild tenderness upon palpation left chest CVS: regular rate and rhythm. no murmurs Lungs: CTA b/l. no wheezes or crackles Abd: soft, NT, ND +BS. no rebound or guarding Ext: pulses intact. no clubbing or cyanosis Results Result Diagram: 07/20/17 0707 07/20/17 0707 Results 24 hrs Laboratory Tests Test 07/20/17 07:07 White Blood Count 7.6 Red Blood Count 3.86 L Hemoglobin 10.7 L Hematocrit 33.9 L Mean Corpuscular Volume 87.8 Mean Corpuscular Hemoglobin 27.7 L Mean Corpuscular Hemoglobin Concent 31.6 L Red Cell Distribution Width 14.6 H Platelet Count 258 Mean Platelet Volume 11.1 H Neutrophils % 58.4 Lymphocytes % 26.3 Monocytes % 8.3 Eosinophils % 5.9 Basophils % 0.4 Nucleated Red Blood Cells % 0.0 Neutrophils # 4.4 Lymphocytes # 2.0 Monocytes # 0.6 Eosinophils # 0.5 Basophils # 0.0 Nucleated Red Blood Cells # 0.0 Sodium Level 139 Potassium Level 4.3 Chloride Level 106 Carbon Dioxide Level 30 Anion Gap 7 L Blood Urea Nitrogen 15 Creatinine 1.25 H Glucose Level 91 Calcium Level 8.2 L Phosphorus Level 3.5 Magnesium Level 1.9 Albumin 2.8 L Medications Medications Current Medications Lorazepam (Ativan) 1 mg Q3 PRN IV ANXIETY Last administered on 07/20/17 00:38 ; Admin Dose 1 MG; Start 07/17/17 at 02:09 Acetaminophen (Tylenol Tab) 650 mg Q6H PRN PO PAIN AND OR ELEVATED TEMP; Start 07/17/17 at 02:30 Gabapentin (Neurontin) 300 mg BID PO Last administered on 07/20/17 09:09; Admin Dose 300 MG; Start 07/17/17 at 09:00 Acetaminophen/ Hydrocodone Bitart ([place] (5/325)) 1 tab Q4H PRN PO PAIN LEVEL 4 -6; Start 07/17/17 at 02:37 Allopurinol (Zyloprim) 100 mg DAILY PO Last administered on 07/20/17 09:08; Admin Dose 100 MG; Start 07/17/17 at 09:00 Alprazolam (Xanax) 0.5 mg Q6H PRN PO ANXIETY; Start 07/17/17 at 03:00 Aspirin (Halfprin) 81 mg DAILY PO Last administered on 07/20/17 09:09; Admin Dose 81 MG; Start 07/17/17 at 09:00 Atenolol (Tenormin) 25 mg DAILY PO Last administered on 07/20/17 09:09; Admin Dose 25 MG; Start 07/17/17 at 09:00 Atorvastatin Calcium (Lipitor) 80 mg HS PO Last administered on 07/19/17 20:43 ; Admin Dose 80 MG; Start 07/17/17 at 21:00 Carisoprodol (Soma) 350 mg DAILY PO Last administered on 07/20/17 09:07; Admin Dose 350 MG; Start 07/17/17 at 09:00 Clopidogrel Bisulfate (plaVIX) 75 mg DAILY PO Last administered on 07/20/17 09 :07; Admin Dose 75 MG; Start 07/17/17 at 09:00 Levothyroxine Sodium (Synthroid) 125 mcg DAILY@06 PO Last administered on 05:37; Admin Dose 125 MCG; Start 07/17/17 at 06:00 Pantoprazole (Protonix Tab) 40 mg DAILY@06 PO Last administered on 07/20/17 05 :37; Admin Dose 40 MG; Start 07/17/17 at 06:00 Trazodone HCl 150 mg 150 mg HS PO Last administered on 07/19/17 20:44; Admin Dose 150 MG; Start 07/17/17 at 21:00 Sodium Chloride (NS) 1,000 ml @ 50 mls/hr Q20H IV Last administered on 05:39; Admin Dose 50 MLS/HR; Start 07/17/17 at 16:30 Hydromorphone HCl (Dilaudid) 0.5 mg Q4H PRN IV SEVERE PAIN LEVEL 7-10 Last administered on 07/19/17 22:01; Admin Dose 0.5 MG; Start 07/18/17 at 12:00 Docusate Sodium (Colace) 100 mg BID PRN PO CONSTIPATION Last administered on 13:52; Admin Dose 100 MG; Start 07/19/17 at 14:00 Senna/Docusate Sodium (Senokot-S) 1 tab DAILY PRN PO CONSTIPATION; Start at 15:30 Hydralazine HCl (Apresoline) 10 mg Q6H PRN IV ELEVATED BLOOD PRESSURE Last administered on 07/19/17 17:25; Admin Dose 10 MG; Start 07/19/17 at 16:30 Amlodipine Besylate (Norvasc) 5 mg DAILY PO Last administered on 07/20/17 09: 08; Admin Dose 5 MG; Start 07/19/17 at 18:00 Prednisone (Prednisone) 50 mg ONCE ONCE PO ; Start 07/20/17 at 18:00; Stop at 18:01 Prednisone (Prednisone) 50 mg ONCE ONCE PO ; Start 07/21/17 at 00:00; Stop at 00:01 Prednisone (Prednisone) 50 mg ONCE ONCE PO ; Start 07/21/17 at 06:00; Stop at 06:01 Diphenhydramine HCl (Benadryl) 50 mg ONCE ONCE IV ; Start 07/21/17 at 06:00; Stop 07/21/17 at 06:01 MAYNOR FLYNN MD Jul 20, 2017 15:39
[2017-07-20] MEDS: HYDROmorphONE 1 MG/ML SYG IV PRN (17:02)
[2017-07-20] MEDS ORDERED: predniSONE 50 MG TAB PO ONE (18:00)
[2017-07-20] MEDS: ATORVASTATIN 80 MG TAB PO SCH (20:30)
[2017-07-20] MEDS: traZODone 50 MG TAB PO SCH (20:32)
[2017-07-21] VITALS (21 sets, daily range): BP systolic 140–165; BP diastolic 64–92; PULSE 64–87; RESP 14–18
[2017-07-21] MEDS: HYDROmorphONE 1 MG/ML SYG IV PRN (05:00)
[2017-07-21] MEDS ORDERED: DIPHENHYDRAMINE 50 MG INJ IV ONE (06:00)
[2017-07-21] MEDS ORDERED: predniSONE 50 MG TAB PO ONE ×2 (06:00)
[2017-07-21] MEDS: PANTOPRAZOLE (EC) 40 MG TAB PO SCH (06:02)
[2017-07-21] MEDS: SOD CHLORIDE 0.9% 1,000 ML IV SCH (06:02)
[2017-07-21] MEDS: LEVOTHYROXINE 125 MCG TAB PO SCH (06:02)
[2017-07-21] MEDS ORDERED: LIDOCAINE 1% (MDV) 20 ML INJ ONE (06:58)
[2017-07-21] MEDS ORDERED: IODIXANOL LOCM 100 ML BTL ONE (06:58)
[2017-07-21] MEDS ORDERED: MIDAZOLAM 1 MG/ML 2 ML INJ ONE (06:59)
[2017-07-21] MEDS ORDERED: HEPARIN 1000 UNITS/ML 10 ML INJ ONE (06:59)
[2017-07-21] MEDS ORDERED: FENTAnyl 50 MCG/ML VIAL ONE (06:59)
[2017-07-21] MEDS ORDERED: NITROGLYCERIN (IC) 100 MCG/ML INJ ONE (07:00)
[2017-07-21] MEDS ORDERED: VERAPAMIL 5 MG INJ ONE (07:00)
[2017-07-21] MEDS ORDERED: DIPHENHYDRAMINE 50 MG INJ ONE (07:32)
[2017-07-21] MEDS ORDERED: METHYLPREDNISOLONE 125 MG INJ ONE (07:32)
[2017-07-21 08:12] LABS: CALCIUM 9.2 mg/dl (8.4-10.2); CREATININE 1.15 mg/dl (0.61-1.24); MAGNESIUM 2.1 mg/dl (1.7-2.5); PHOSPHORUS 2.1 mg/dl (2.5-4.9); POTASSIUM 4.7 mmol/L (3.5-5.1)
[2017-07-21] MEDS ORDERED: SOD CHLORIDE 0.9% 1,000 ML IV SCH (08:19)
[2017-07-21] MEDS ORDERED: HOLD all METFORMIN and METFORMIN CONTAINING medications for 48 hours post procedure. Chec XX ONE (08:30)
--- NOTE | 2017-07-21 08:34 | OPR ---
Date/Time of Note Date/Time of Note DATE: 07/21/17 TIME: 08:25 Operative Report Free Text/Dictation Procedure Date: 07/21/2017 Pathology Tech/surgeon:Fernandez Goodman MD. Procedures Performed: 1)Left heart catheterization with selective left and right coronary angiography. Pre-operative Diagnosis:Recurrent chest pain, possible unstable angina Post-operative Diagnosis: normal coronaries with patent stent Indications: Description of Procedure: After informed consent, the patient was brought to the cardiac catheterization lab. The procedure site was prepped and draped in usual manner. The patient was premedicated with versed 1 mg and fentanyl 25 mcg, benadryl 25mg IV and solumedrol 100mg IV (plus already received prednisone load). 3 mL lidocaine was injected into the right wrist. Next using the posterior wall technique, the 6/ 5 kinyarwanda sheath was inserted into the right radial artery. Next using the JL3.5 and Mukesh right, selective angiography of the left and right coronary arteries were obtained. Hemodynamics were obtained with the JR catheter. Left ventricle angiography was not obtained. Next all equipment was removed and hemostasis was obtained by TR band. Findings: Anatomy/Hemodynamics: Left main:normal LAD:normal Diagonal:normal Circumflex: large dominant vessel, normal Obtuse marginal: large vessel with patent proximal stent PDA:normal RCA: non-dominant small vessel, normal LV angiography:not done LV-Ao: no gradient LVEDP:1 mmHg Contrast used: 45 mL Fluoroscopy time:6.1 min Estimated blood loss<10 mL. Specimen: none Grafts/implants: none Complications: none Assessment: Normal appearing coronary arteries with patent OM stent Noncardiac chest pain Plan: -observe in PACU -ok for d/c today after observation -f/u with Dr. Montes as outpt Surgeon see signature line FERNANDEZ GOODMAN Jul 21, 2017 08:34
[2017-07-21] MEDS: AMLODIPINE 5 MG TAB PO SCH (09:09)
[2017-07-21] MEDS: ATENOLOL 25 MG TAB PO SCH (09:09)
[2017-07-21] MEDS: ALLOPURINOL 100 MG TAB PO SCH (09:53)
[2017-07-21] MEDS: CLOPIDOGREL 75 MG TAB PO SCH (09:53)
[2017-07-21] MEDS: GABAPENTIN 300 MG CAP PO SCH (09:53)
[2017-07-21] MEDS: ASPIRIN (EC) 81 MG TAB PO SCH (09:53)
[2017-07-21] MEDS: CARISOPRODOL 350 MG TAB PO SCH (09:53)
[2017-07-21] MEDS: hydrALAzine 20 MG INJ IV PRN (10:20)
--- NOTE | 2017-07-21 11:00 | PN ---
DATE: 07/21/2017 SUBJECTIVE DATA: The patient had a cardiac cath yesterday, which showed clean coronaries. No other acute events noted. No hemoptysis, hematemesis or hematochezia. OBJECTIVE DATA: Blood pressure 158/92, pulse 64, respirations 18, temperature 97.9. HEENT: Head is normocephalic. NECK: Supple. HEART: Regular rate. LUNGS: Diminished breath sounds at the base. ABDOMEN: Soft, nontender to palpation. No rebound or guarding. EXTREMITIES: Negative for clubbing, cyanosis. No edema. DERMATOLOGIC: Clean. No rashes. MUSCULOSKELETAL: No joint effusion. NEUROLOGIC: No change in exam. MEDICATIONS: Reviewed. LABORATORY AND DIAGNOSTIC DATA: Shows sodium 136, BUN 20, creatinine 1.15, phosphorous 2.1. ASSESSMENT AND PLAN: 1. Nonoliguric acute kidney injury on top of chronic kidney disease. Etiology of acute kidney injury was secondary to hemodynamics. The patient's renal function has improved with IV hydration. The patient is status post cardiac cath. There was no evidence of contrast associated nephropathy at this time. Will continue to monitor. Will discontinue IV fluids. 2. Hypertension. Continue current blood pressure regimen. 3. Chest pain. Continue medical management. Status post cardiac cath. No the patient noted to have clean coronaries. 4. Continue statin therapy. 5. Hypothyroidism. Continue Synthroid. 6. Anxiety disorder. Continue Xanax. 7. Neuropathy. Continue Neurontin. Dictated By: Ricardo Gamez DO /johan/junior /Document#: [id number]
--- NOTE | 2017-07-21 13:48 | PDOCDIS ---
Discharge Instructions DIAGNOSIS Discharge Diagnosis Unstable angina CONDITION Patient Condition: Good HOME CARE INSTRUCTIONS: Diet Instructions: Low Fat /CholesterolSpecial Diet: cardiac diet ACTIVITY: Activity Restrictions: No Restrictions FOLLOW UP/APPOINTMENTS Follow-up Plan Follow up with your Watch Engineer after discharge as well as your PCP. Try Remeron 15mg at night to help with sleep. Take Pantoprazole as needed for acid reflux and can take a Zantac/Pepcid at night as well if you feel like you wake up with chest discomfort, sour taste in your mouth, or acid reflux. Follow up with your Urologist for stent management. SCHOOL/WORK RELEASE May return to School/Work on: Jul 25, 2017 MAYNOR FLYNN MD Jul 21, 2017 13:48
[2017-07-21] MEDS ORDERED: MIRT15TA PO (13:52)
[2017-07-21] MEDS ORDERED: RANI150T9 PO (13:52)
--- NOTE | 2017-07-21 13:59 | PN ---
Date/Time of Note Date/Time of Note DATE: 07/21/17 TIME: 13:54 Assessment/Plan VTE Prophylaxis VTE Prophylaxis Intervention: SCD's Lines/Catheters IV [facility]ter Type (from [facility] [place] Urinary Cath still in place: No Assessment/Plan Assessment/Plan 1. Chest pain, noncardiac etiology - Patient underwent cardiac cath this am and was found to have patent arteries as well as stent - May be GI etiology and encouraged patient to take Zantac at night and avoid spicy greasy foods - Cardiology on board and consultation appreciated 2. h/o CAD - PCI to OM2 05/2011, cath 08/2013 patent OM stent and nonobstructive disease - Lexiscan SPECT 03/2017 small nonreversible defect in inferior and inferolateral gomez- cardiac cath clean 3. Acute kidney injury- resolved 4. Hypertension - stable. continue monitoring 5. Dyslipidemia - on statin 6. 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 Peptic ulcer disease and colitis - Zantac at night 8. Nephrolithiasis - Has stent in place with no issues at this moment. 9. Insomnia - Will try Remeron hs which should help with sleep issues as well as anxiety. Explained side effects including weight gain which patient understands and not too concerned about. 10. Disposition - Cleared by cardiology for d/c home. stable from medicine standpoint as well Subjective 24 Hr Interval Summary Free Text/Dictation Patient underwent cardiac cath this am and tolerated well. Patient plans to follow up with manager of network and possibly pursue GI physician as outpatient for further evaluation of pain, Denies any new symptoms and no acute overnight events. Exam/Review of Systems Vital Signs Vitals Vital Signs Date Time Temp Pulse Resp B/P Pulse Ox O2 Delivery O2 Flow Rate FiO2 07/21/17 12:08 83 07/21/17 11:33 97.9 18 149/88 96 07/21/17 10:59 Room Air Intake and Output 07/20/17 07/20/17 07/21/17 15:00 23:00 07:00 Intake Total 1350 ml 400 ml Output Total 800 ml Balance 1350 ml -400 ml Exam General: NAD, awake and alert Chest: mild tenderness upon palpation left chest CVS: regular rate and rhythm. no murmurs Lungs: CTA b/l. no wheezes or crackles Abd: soft, NT, ND +BS. no rebound or guarding Ext: pulses intact. no clubbing or cyanosis Results Result Diagram: 07/20/17 0707 07/21/17 0643 Results 24 hrs Laboratory Tests Test 07/21/17 06:43 Sodium Level 136 Potassium Level 4.7 Chloride Level 104 Carbon Dioxide Level 27 Anion Gap 10 Blood Urea Nitrogen 17 Creatinine 1.15 Glucose Level 126 Calcium Level 9.2 Phosphorus Level 2.1 #L Magnesium Level 2.1 Medications Medications Current Medications Lorazepam (Ativan) 1 mg Q3 PRN IV ANXIETY Last administered on 07/20/17 21:01 ; Admin Dose 1 MG; Start 07/17/17 at 02:09 Acetaminophen (Tylenol Tab) 650 mg Q6H PRN PO PAIN AND OR ELEVATED TEMP; Start 07/17/17 at 02:30 Gabapentin (Neurontin) 300 mg BID PO Last administered on 07/21/17 09:53; Admin Dose 300 MG; Start 07/17/17 at 09:00 Acetaminophen/ Hydrocodone Bitart ([place] (5/325)) 1 tab Q4H PRN PO PAIN LEVEL 4 -6; Start 07/17/17 at 02:37 Allopurinol (Zyloprim) 100 mg DAILY PO Last administered on 07/21/17 09:53; Admin Dose 100 MG; Start 07/17/17 at 09:00 Alprazolam (Xanax) 0.5 mg Q6H PRN PO ANXIETY; Start 07/17/17 at 03:00 Aspirin (Halfprin) 81 mg DAILY PO Last administered on 07/21/17 09:53; Admin Dose 81 MG; Start 07/17/17 at 09:00 Atenolol (Tenormin) 25 mg DAILY PO Last administered on 07/21/17 09:09; Admin Dose 25 MG; Start 07/17/17 at 09:00 Atorvastatin Calcium (Lipitor) 80 mg HS PO Last administered on 07/20/17 20:30 ; Admin Dose 80 MG; Start 07/17/17 at 21:00 Carisoprodol (Soma) 350 mg DAILY PO Last administered on 07/21/17 09:53; Admin Dose 350 MG; Start 07/17/17 at 09:00 Clopidogrel Bisulfate (plaVIX) 75 mg DAILY PO Last administered on 07/21/17 09 :53; Admin Dose 75 MG; Start 07/17/17 at 09:00 Levothyroxine Sodium (Synthroid) 125 mcg DAILY@06 PO Last administered on 06:02; Admin Dose 125 MCG; Start 07/17/17 at 06:00 Pantoprazole (Protonix Tab) 40 mg DAILY@06 PO Last administered on 07/21/17 06 :02; Admin Dose 40 MG; Start 07/17/17 at 06:00 Trazodone HCl (Desyrel) 150 mg HS PO Last administered on 07/20/17 20:32; Admin Dose 150 MG; Start 07/17/17 at 21:00 Hydromorphone HCl (Dilaudid) 0.5 mg Q4H PRN IV SEVERE PAIN LEVEL 7-10 Last administered on 07/21/17 05:00; Admin Dose 0.5 MG; Start 07/18/17 at 12:00 Docusate Sodium (Colace) 100 mg BID PRN PO CONSTIPATION Last administered on 13:52; Admin Dose 100 MG; Start 07/19/17 at 14:00 Senna/Docusate Sodium (Senokot-S) 1 tab DAILY PRN PO CONSTIPATION; Start at 15:30 Hydralazine HCl (Apresoline) 10 mg Q6H PRN IV ELEVATED BLOOD PRESSURE Last administered on 07/21/17 10:20; Admin Dose 10 MG; Start 07/19/17 at 16:30 Amlodipine Besylate (Norvasc) 5 mg DAILY PO Last administered on 07/21/17 09: 09; Admin Dose 5 MG; Start 07/19/17 at 18:00 MAYNOR FLYNN MD Jul 21, 2017 13:59
--- NOTE | 2017-07-21 13:59 | DS ---
Date/Time of Note Date/Time of Note DATE: 07/21/17 TIME: 13:59 Discharge Summary Admission/Discharge Info Admit Date/Time Jul 17, 2017 at 00:21 Discharge Date/Time Discharge Diagnosis 1. Noncardiac chest pain - ruled out for myocardial infarction, coronary angiogram 07/21/2017 with normal coronary arteries and patent OM stent 2. Coronary artery disease - PCI to OM2 05/2011, Lexiscan SPECT 03/2017 small nonreversible defect in inferior and inferolateral gomez 3. Acute kidney injury - resolved with fluid hydration 4. Hypertension 5. Dyslipidemia 6. 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 Peptic ulcer disease and colitis 8. Iodine contrast allergy Patient Condition: Good Consults Cardiology- Dr. Raman Nephrology- Dr. Gamez Procedures Left heart catheterization Hx of Present Illness This is a 66-year-old male with a past medical history of hypertension, hyperlipidemia, coronary disease status post stenting in the past, on aspirin and Plavix, hypothyroidism who is presenting with moderate to severe left-sided sharp stabbing chest pain radiating into the left arm with associated shortness of breath, nausea, headache, diaphoresis and fatigue. The patient reports that her the symptoms started at around 5:30 PM. He has been intermittently having these pains and was recently evaluated by his human resources designate, Dr. Mark Montes, who scheduled a cardiac catheterization for next week. However, the patient was instructed to come to the emergency department for admission if his symptoms recurred. While in ER he was given aspirin and Toradol. He was recently admitted to rehab in [facility] after back surgery Hospital Course Patient was admitted and cardiology was consulted. Cardiac workup was performed to rule out SD. Patient has history of PCI to OM2 05/2011, cath 2012 patent OM stent and nonobstructive disease, Lexiscan SPECT 03/2017 small nonreversible defect in inferior and inferolateral gomez. He was also found to have GREGORY and started on IV hydration and Nephrology was consulted. Patient was prepped prior to [facility] with prednisone 50mg 13 hours, 7 hours, and 1 hour before and Benadryl 50mg IV 1 hour before due to iodine allergy and hydrated with IVF to prevent any further renal injury. Coronary angiogram 07/21/2017 with normal coronary arteries and patent OM stent. Patient was advised to continue his current medications and seek GI workup. He was started on PPI and advised can take Zantac at night and instructed to avoid spicy, greasy, heavy foods especially before bed. Patient was also instructed to follow up with Urologist for removal of stent in place. He was requesting medication for help with sleep and Remeron offered due to history of anxiety/mood symptoms as well. Patient was doing well and discharged home in good condition. Home Meds Active Scripts Ranitidine Hcl* (Zantac*) 150 Mg Tablet, 150 MG PO HS for 30 Days, #30 TAB Prov:MAYNOR FLYNN MD 07/21/17 Mirtazapine* (Remeron*) 15 Mg Tablet, 15 MG PO HS for 30 Days, #30 TAB Prov:MAYNOR FLYNN MD 07/21/17 Reported Medications Hydrocodone Bit-Acetaminophen (Hydrocodone Bit-APAP) 1 Each Tablet, 1 EACH PO BID Y 03/28/13 Oxycodone Hcl-Acetaminophen* (Endocet*) 1 Tab Tablet, 1 TAB PO Y 03/28/13 Diphenoxylate Hcl-Atropine* (Diphenoxylate Hcl-Atropine*) 1 Tab Tablet, 1 TAB PO 4 TIMES A DAY Y, #1 03/28/13 Tadalafil (Cialis) 20 Mg Tablet, 20 MG PO Y 03/28/13 Carisoprodol* (Carisoprodol*) 350 Mg Tablet, 350 MG PO DAILY 03/28/13 Alprazolam (Xanax) 0.25 Mg Tab, 0.5 MG PO Q6 03/17/13 Gabapentin* (Gabapentin*) 300 Mg Capsule, 300 MG PO 03/17/13 [Prenisolone] No Conflict Check, 1 OP QID 03/17/13 Clopidogrel Bisulfate (Plavix) 75 Mg Tablet, 75 MG PO DAILY 07/31/11 Aspirin* (Aspirin* Chew) 81 Mg Tab.chew, 325 MG PO DAILY 07/31/11 Atorvastatin (Lipitor) 40 Mg Tablet, 80 MG PO HS 06/17/11 Atenolol* (Atenolol*) 25 Mg Tablet, 25 MG PO DAILY 06/17/11 Levothyroxine Sodium* (Levothyroxine Sodium*) 125 Mcg Tablet, 125 MCG PO DAILY 06/17/11 Allopurinol* (Allopurinol*) 100 Mg Tablet, 100 MG PO DAILY 06/17/11 Discontinued Reported Medications Pantoprazole* (Pantoprazole*) 40 Mg Tablet.dr, 40 MG PO DAILY 05/13/13 Trazodone Hcl* (Trazodone Hcl*) 150 Mg Tablet, 150 MG PO DAILY 09/20/12 Follow-up Plan Follow up with your Neuropsychology Division Chief after discharge as well as your PCP. Try Remeron 15mg at night to help with sleep. Take Pantoprazole as needed for acid reflux and can take a Zantac/Pepcid at night as well if you feel like you wake up with chest discomfort, sour taste in your mouth, or acid reflux. Follow up with your Urologist for stent management. Primary Care Provider Not On Staff Doctor Time spent on discharge: > 30 minutes Pending Labs Laboratory Tests Test 07/21/17 06:43 Sodium Level 136mmol/L (135-144) Potassium Level 4.7mmol/L (3.5-5.1) Chloride Level 104mmol/L (97-110) Carbon Dioxide Level 27mmol/L (21-31) Anion Gap 10 (8-16) Blood Urea Nitrogen 17mg/dl (7-20) Creatinine 1.15mg/dl (0.61-1.24) Glucose Level 126mg/dl (70-220) Calcium Level 9.2mg/dl (8.4-10.2) Phosphorus Level 2.1mg/dl (2.5-4.9) Magnesium Level 2.1mg/dl (1.7-2.5) MAYNOR FLYNN MD Jul 21, 2017 13:59
--- NOTE | 2017-07-21 14:15 | CONS ---
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 Doing well post-procedure. Right radial artery access site intact. Detailed Summary Additional Comments 14 point review of systems without changes. Exam/Review of Systems Vital Signs Vitals Vital Signs Date Time Temp Pulse Resp B/P Pulse Ox O2 Delivery O2 Flow Rate FiO2 07/21/17 12:08 83 07/21/17 11:33 97.9 18 149/88 96 07/21/17 10:59 Room Air Intake and Output 07/20/17 07/20/17 07/21/17 15:00 23:00 07:00 Intake Total 1350 ml 400 ml Output Total 800 ml Balance 1350 ml -400 ml Exam Constitutional: alert, well developed Psych: nl mood/affect, no complaints Head: atraumatic, normocephalic Eyes: nl conjunctiva, nl lids ENMT: nl external ears & nose, nl nasal mucosa & septum Neck: non-tender, supple, No jvd Respiratory: clear to auscultation Cardiovascular: regular rate and rhythm Gastrointestinal: non-tender, soft Musculoskeletal: nl extremities to inspection Extremities: No clubbing, No cyanosis, No edema Neurological: nl mental status, nl speech Results Result Diagram: 07/20/17 0707 07/21/17 0643 Results 24 hrs Laboratory Tests Test 07/21/17 06:43 Sodium Level 136 Potassium Level 4.7 Chloride Level 104 Carbon Dioxide Level 27 Anion Gap 10 Blood Urea Nitrogen 17 Creatinine 1.15 Glucose Level 126 Calcium Level 9.2 Phosphorus Level 2.1 #L Magnesium Level 2.1 Medications Medications Current Medications Lorazepam (Ativan) 1 mg Q3 PRN IV ANXIETY Last administered on 07/20/17 21:01 ; Admin Dose 1 MG; Start 07/17/17 at 02:09 Acetaminophen (Tylenol Tab) 650 mg Q6H PRN PO PAIN AND OR ELEVATED TEMP; Start 07/17/17 at 02:30 Gabapentin (Neurontin) 300 mg BID PO Last administered on 07/21/17 09:53; Admin Dose 300 MG; Start 07/17/17 at 09:00 Acetaminophen/ Hydrocodone Bitart ([place] (5/325)) 1 tab Q4H PRN PO PAIN LEVEL 4 -6; Start 07/17/17 at 02:37 Allopurinol (Zyloprim) 100 mg DAILY PO Last administered on 07/21/17 09:53; Admin Dose 100 MG; Start 07/17/17 at 09:00 Alprazolam (Xanax) 0.5 mg Q6H PRN PO ANXIETY; Start 07/17/17 at 03:00 Aspirin (Halfprin) 81 mg DAILY PO Last administered on 07/21/17 09:53; Admin Dose 81 MG; Start 07/17/17 at 09:00 Atenolol (Tenormin) 25 mg DAILY PO Last administered on 07/21/17 09:09; Admin Dose 25 MG; Start 07/17/17 at 09:00 Atorvastatin Calcium (Lipitor) 80 mg HS PO Last administered on 07/20/17 20:30 ; Admin Dose 80 MG; Start 07/17/17 at 21:00 Carisoprodol (Soma) 350 mg DAILY PO Last administered on 07/21/17 09:53; Admin Dose 350 MG; Start 07/17/17 at 09:00 Clopidogrel Bisulfate (plaVIX) 75 mg DAILY PO Last administered on 07/21/17 09 :53; Admin Dose 75 MG; Start 07/17/17 at 09:00 Levothyroxine Sodium (Synthroid) 125 mcg DAILY@06 PO Last administered on 06:02; Admin Dose 125 MCG; Start 07/17/17 at 06:00 Pantoprazole (Protonix Tab) 40 mg DAILY@06 PO Last administered on 07/21/17 06 :02; Admin Dose 40 MG; Start 07/17/17 at 06:00 Trazodone HCl (Desyrel) 150 mg HS PO Last administered on 07/20/17 20:32; Admin Dose 150 MG; Start 07/17/17 at 21:00 Hydromorphone HCl (Dilaudid) 0.5 mg Q4H PRN IV SEVERE PAIN LEVEL 7-10 Last administered on 07/21/17 05:00; Admin Dose 0.5 MG; Start 07/18/17 at 12:00 Docusate Sodium (Colace) 100 mg BID PRN PO CONSTIPATION Last administered on 13:52; Admin Dose 100 MG; Start 07/19/17 at 14:00 Senna/Docusate Sodium (Senokot-S) 1 tab DAILY PRN PO CONSTIPATION; Start at 15:30 Hydralazine HCl (Apresoline) 10 mg Q6H PRN IV ELEVATED BLOOD PRESSURE Last administered on 07/21/17 10:20; Admin Dose 10 MG; Start 07/19/17 at 16:30 Amlodipine Besylate (Norvasc) 5 mg DAILY PO Last administered on 07/21/17 09: 09; Admin Dose 5 MG; Start 07/19/17 at 18:00 SERAFIN HAAS MD Jul 21, 2017 14:15
== END 2017-07-21 17:06 | disposition home or self-care (01) | DRG 287 ==
LOC: E/R 17:25 → MS4 07-17 00:21
PROVIDERS: ADMIT Internal Medicine; ATTEND Internal Medicine
PROC: B2011ZZ Plain Radiography of Multiple Coronary Arteries using Low Osmolar Contrast (ICD-10-PCS; 2017-07-21)
PROC: 4A023N7 Measurement of Cardiac Sampling and Pressure, Left Heart, Percutaneous Approach (ICD-10-PCS; principal; 2017-07-21 07:30)
DX: I25.110 Atherosclerotic heart disease of native coronary artery with unstable angina pectoris (principal); N17.9 Acute kidney failure, unspecified; R07.9 Chest pain, unspecified; Z95.5 Presence of coronary angioplasty implant and graft; I10 Essential (primary) hypertension; E78.5 Hyperlipidemia, unspecified; E03.9 Hypothyroidism, unspecified; K27.9 Peptic ulcer, site unspecified, unspecified as acute or chronic, without hemorrhage or perforation; Z91.041 Radiographic dye allergy status
CPT/HCPCS: 36415; 71010; 80048; 80053; 80061; 80069; 81001; 81003; 82043; 82550; 82553; 83036; 83735; 84100; 84155; 84300; 84443; 84484; 85025; 93005; 93458; 96372; 96374; 96375; C1887; J0360; J1170; J1200; J1630; J1644; J1885; J2060; J2250; J2930; J3010; J7030; J7512; Q9967

== ENCOUNTER 2017-10-14 17:44 | Emergency (ER) | payer MEDICARE ==
[~2017-10-14] VITALS: Ht 157.5 cm; Wt 80.4 kg
[~2017-10-14 17:44] MED LIST changes: +MIRT15TA PO; -PANT40TA4 PO; +RANI150T9 PO; -TRAZ150T65 PO
[2017-10-14 17:51] VITALS: Ht 157.5 cm; Wt 80.4 kg
--- NOTE | 2017-10-14 21:40 | ERD ---
ER Documentation Chief Complaint Chief Complaint Complaqins of back pain since this week HPI This 67 yr old male patient reports mid back pain x 2 days , pt has a complex spine hx including disk fusion in March, and May , fx vertebral repair. pt states that he had a fungal infection after surgery. pt states that 2 days ago he developed pain pain 10/10 described as burning and pinching ROS All systems reviewed and are negative except as per history of present illness. Medications Home Meds Active Scripts Hydrocodone/Acetaminophen ([place] 5-325 Tablet) 1 Each Tablet, 1 TAB PO Q6H Y for PAIN, #7 TAB Prov:SANJUANITA,TRACY 10/14/17 Ranitidine Hcl* (Zantac*) 150 Mg Tablet, 150 MG PO HS for 30 Days, #30 TAB Prov:MAYNOR FLYNN MD 07/21/17 Mirtazapine* (Remeron*) 15 Mg Tablet, 15 MG PO HS for 30 Days, #30 TAB Prov:MAYNOR FLYNN MD 07/21/17 Reported Medications Hydrocodone Bit-Acetaminophen (Hydrocodone Bit-APAP) 1 Each Tablet, 1 EACH PO BID Y 03/28/13 Oxycodone Hcl-Acetaminophen* (Endocet*) 1 Tab Tablet, 1 TAB PO Y 03/28/13 Diphenoxylate Hcl-Atropine* (Diphenoxylate Hcl-Atropine*) 1 Tab Tablet, 1 TAB PO 4 TIMES A DAY Y, #1 03/28/13 Tadalafil (Cialis) 20 Mg Tablet, 20 MG PO Y 03/28/13 Carisoprodol* (Carisoprodol*) 350 Mg Tablet, 350 MG PO DAILY 03/28/13 Alprazolam (Xanax) 0.25 Mg Tab, 0.5 MG PO Q6 03/17/13 Gabapentin* (Gabapentin*) 300 Mg Capsule, 300 MG PO 03/17/13 [Prenisolone] No Conflict Check, 1 OP QID 03/17/13 Clopidogrel Bisulfate (Plavix) 75 Mg Tablet, 75 MG PO DAILY 07/31/11 Aspirin* (Aspirin* Chew) 81 Mg Tab.chew, 325 MG PO DAILY 07/31/11 Atorvastatin (Lipitor) 40 Mg Tablet, 80 MG PO HS 06/17/11 Atenolol* (Atenolol*) 25 Mg Tablet, 25 MG PO DAILY 06/17/11 Levothyroxine Sodium* (Levothyroxine Sodium*) 125 Mcg Tablet, 125 MCG PO DAILY 06/17/11 Allopurinol* (Allopurinol*) 100 Mg Tablet, 100 MG PO DAILY 06/17/11 Allergies Allergies: Coded Allergies: iodine (Verified Allergy, Severe, CARDIAC ARREST, 07/16/17) Penicillins (Verified Allergy, Unknown, RASHES, 07/16/17) Sulfa (Sulfonamide Antibiotics) (Verified Allergy, Unknown, RASHES, ) morphine (Verified Allergy, Unknown, 07/17/17) PMhx/Soc History of Surgery: Yes (9 BACK SURGERIES (SPINAL FUSION)) Anesthesia Reaction: No Hx Neurological Disorder: No Hx Respiratory Disorders: No Hx Cardiac Disorders: Yes (HTN, HIGH CHOLESTEROL) Hx Psychiatric Problems: Yes (ANXIETY) Hx Miscellaneous Medical Probl: No Hx Alcohol Use: No Hx Substance Use: No Hx Tobacco Use: No Smoking Status: Never smoker Physical Exam Vitals Vital Signs Date Time Temp Pulse Resp B/P Pulse Ox O2 Delivery O2 Flow Rate FiO2 10/15/17 00:08 97.6 47 17 181/84 98 Room Air 10/14/17 17:51 98.5 57 20 121/61 98 Physical Exam Const: Well-nourished, well-appearing, well-hydrated 67-year-old male patient no acute distress Neck: Full range of motion..~ No meningismus. Resp: Clear to auscultation bilaterally Cardio: Regular rate and rhythm, no murmurs Abd: Soft, non tender, non distended. No epigastric pain Skin: No petechiae or rashes Back: Back Exam: Skin: No evidence of vesicle, erythemic rash, papules, ulcers or skin breakdown, patient has a vertical line scar from multiple spinal surgeries, hyper sensitive T4/T5 no erythema or warmth, no evidence of infection Compartments: Soft Motor: Normal flexion and extension of bilateral hip/knee/ ankle/foot Sensation: Intact to light touch throughout Bones: Hypersensitive along spinal scar T4-T5 Ext: No cyanosis, or edema Neur: Awake and alert Psych: Normal Mood and Affect Results 24 hrs Laboratory Tests Test 10/14/17 22:51 Bedside Urine pH (LAB) 6.0 Bedside Urine Protein (LAB) 1+ Bedside Urine Glucose (UA) Negative Bedside Urine Ketones (LAB) Negative Bedside Urine Blood Negative Bedside Urine Nitrite (LAB) Negative Bedside Urine Leukocyte Esterase (L Negative Current Medications Medications (Trade) Dose Ordered Sig/Chris Route PRN Reason Start Time Stop Time Status Last Admin Dose Admin Acetaminophen/ Hydrocodone Bitart ([place] (10/325)) 1 tab ONCE ONCE PO 10/14/17 22:00 10/14/17 22:01 DC 10/14/17 22:47 Docusate Sodium (Colace) 200 mg ONCE ONCE PO 10/14/17 22:00 10/14/17 22:01 DC 10/14/17 23:34 Acetaminophen/ Hydrocodone Bitart ([place] (5/325)) 1 tab ONCE ONCE PO 10/15/17 00:00 10/15/17 00:01 DC 10/15/17 00:11 Ketorolac Tromethamine (Toradol) 15 mg ONCE STAT IM 10/14/17 23:53 10/14/17 23:54 DC 10/15/17 00:02 Urinalysis negative for evidence of infection Procedures/MDM PROCEDURE: XR thoracic Spine. CLINICAL INDICATION: Trauma. TECHNIQUE: AP and lateral views of the thoracic spine were performed. COMPARISON: No pertinent prior examinations were submitted for comparison. FINDINGS: Vertebral body stature and alignment maintained. There is no evidence of fracture or subluxation. Some posterior rods are noted within the lower thoracic spine. IMPRESSION: No evidence of compression fracture. Electronically viewed and signed by .Prabhjot Wolf MD, MD on 10/14/2017 23:20 This 67-year-old male patient presents to emergency department for back pain. Patient has a substantial spinal history including multiple surgeries, patient reports a sudden onset of mid thoracic burning and pinching. She reports he has his back brace which provides intermittent relief of symptoms. patient denies any numbness or tingling radiating down his legs, denies alteration in bowel or bladder, or radiating lower extremity pain in a dermatomal distribution. Sciatica, or saddle anesthesia patient treated for pain with [place], thorax x-ray, and urinalysis, findings within normal limits, radiology interprets x-ray with no evidence of a compression fracture. Urinalysis negative for signs of infection, no leukocytosis, nitrates, or hematuria. Patient reports that [place] did not help with pain. Plan to discharge patient home with [place] 10, patient will receive additional [place] and Toradol injection prior to discharge, instructed to return to emergency department for numbness or tingling radiating down legs, bowel or bladder dysfunction, saddle anesthesia. Follow-up with primary care physician for treatment organization. Patient is stable with no new complaints during ER course, clinically there is no current evidence to suggest cauda equina, discitis, spinal abscess or any other emergent condition appearing to require further evaluation or hospitalization. I feel the patient is stable for discharge at this time. I have discussed results, examination findings, the treatment plan with the patient and family present prior to discharge. Indications for emergent reevaluation, side effects of medication were also discussed. All questions were answered. Patient verbalizes understanding and agrees with plan of care. Departure Diagnosis: Primary Impression: Chronic thoracic back pain Back pain laterality: bilateral Qualified Code: M54.6 - Chronic bilateral thoracic back pain Condition: Good Patient Instructions: Back Pain (Acute Or Chronic) Additional Instructions: Thank you for for coming [facility] for your care today. Please ask your nurse or provider if you have questions about your care today and do not leave until all your questions have been answered. Please use any medications given as directed and follow-up with your doctor (or the doctor you were referred to) in the next 2-3 days. If you do not have a primary care doctor you may follow up at the [facility] (listed below). You may also use motrin and tylenol as needed for fever and/or pain unless instructed otherwise by your provider or nurse. Indications for more urgent follow-up have been discussed, but you may return to the Emergency Department at ANY time for any worrisome or worsening symptoms. If you have abdominal pain, please know that no test or exam you received is perfect and you should follow up within 8 hours for continued pain. If you had any imaging studies today, such as an X-Ray or CT Scan, these studies will be reviewed later by a radiologist. You will be called if there are important findings that were not identified today, so make sure the contact information you provided at registration is correct. If you received any narcotic pain control medicine today, such as Vicodin, Morphine or Dilaudid, your coordination and judgment may be affected for a number of hours. Please do not drive or operate heavy machinery, and you may want someone to assist you at home. If you were given a prescription for narcotic medication, be aware that it is very addictive- use sparingly and only if necessary. TRACY GANN Oct 14, 2017 21:40
[2017-10-14] MEDS ORDERED: HYDROCODONE/APAP (10/325) TAB PO ONE (22:00)
[2017-10-14] MEDS ORDERED: DOCUSATE SODIUM 100 MG CAP PO ONE (22:00)
[2017-10-14 22:50] LABS: URINE BLOOD (Dip) POC Negative (NEGATIVE)
--- NOTE | 2017-10-14 23:21 | RADRPT ---
PROCEDURE: XR thoracic Spine. CLINICAL INDICATION: Trauma. TECHNIQUE: AP and lateral views of the thoracic spine were performed. COMPARISON: No pertinent prior examinations were submitted for comparison. FINDINGS: Vertebral body stature and alignment maintained. There is no evidence of fracture or subluxation. Some posterior rods are noted within the lower thoracic spine. IMPRESSION: No evidence of compression fracture. RPTAT: HIKT .Prabhjot Wolf MD, MD Date Time Electronically viewed and signed by .Prabhjot Wolf MD, on 10/14/2017 23:20 .T/
[2017-10-14] MEDS ORDERED: KETOROLAC 15 MG INJ IM STA (23:53)
[2017-10-14] MEDS ORDERED: HYDR-906 PO (23:54)
[2017-10-15] MEDS ORDERED: HYDROCODONE/APAP (5/325) TAB PO ONE
[2017-10-15 00:08] VITALS: BP 181/84; PULSE 47; RESP 17; TEMP 97.6
== END 2017-10-15 00:13 | disposition home or self-care (01) ==
LOC: FTE 17:44
DX: M54.6 Pain in thoracic spine (principal); I10 Essential (primary) hypertension; Z79.01 Long term (current) use of anticoagulants; Z79.82 Long term (current) use of aspirin
CPT/HCPCS: 72072; 81003; 96372; 99284; J1885